=== PATIENT | female | born 1945 | race Caucasian/White ===

== ENCOUNTER 2022-04-25 08:57 | Outpatient (CLI) | payer MEDICARE, BC, SELFPAY ==
--- OUTSIDE RECORDS SUMMARY | 2022-04-25 09:08 | XMS_ITS | Clinical Summary ---
:1945 Author Organization [facility] Address [address] [place] [address] Care Team Providers Name Role Phone Unavailable Primary Care Provider Unavailable Source Comments Patient records contain information from all sites at [facility]. For routine questions regarding patient records, call [phone] during business hours, M-F 8:00 AM - 5:00 PM Central Time. Record requests for emergency care only can be directed to [phone] at any time.[facility] Allergies Active Allergy Reactions Severity Noted Date Comments Animal Dander Other (see comments) 03/01/2017 Horses and guinea pig - sneezing and wa beth eyes Penicillins Rash Low 12/11/2015 Other reaction( s): Rash,abd pain Medications Medication Sig Dispensed Refills Start Date End Date Status apixaban (Eliquis) 5 2 (two) times a day. 0 10/18/19 16 Active mg tablet atorvastatin atorvastatin 40 mg 0 07/16/2020 Active (LIPITOR) 40 mg tablet tablet cetirizine (ZyrTEC) Take 1 tablet by 0 Active 10 mg tablet mouth. fluticasone Administer 2 sprays 0 03/11/2018 Active propionate (FLONASE) into nostril(s). 50 mcg/actuation nasal spray losartan (COZAAR) 50 losartan 50 mg 0 07/12/2020 Active mg tablet tablet amLODIPine (NORVASC) amlodipine 2.5 mg 0 10/20/2015 Active 2.5 mg tablet tablet atenoloL (TENORMIN) atenolol 25 mg 0 10/17/2015 Active 25 mg tablet tablet multivit with Take 1 tablet by 0 Active minerals/lutein mouth. (MULTIVITAMIN 50 PLUS ORAL) Social History Tobacco Use Types Packs/Day Years Used Date Smoking Tobacco: Never Smokeless Tobacco: Never Sex Assigned at Date Recorded Not on file Last Filed Vital Signs Vital Sign Reading Time Taken Comments Blood Pressure 105/51 08/24/2021 10:15 AM CDT Pulse 60 02/16/2021 12:43 PM CDT Temperature - - Respiratory Rate 17 08/24/2021 10:25 AM CDT Oxygen Saturation 95% 08/24/2021 10:29 AM CDT Inhaled Oxygen Concentration - - Weight - - Height - - Body Mass Index - - Plan of Treatment Health Maintenance Due Date Last Done Comments Hepatitis C Screening 1945 Depression Screening (Annual 05/14/2021 PHQ-2) Creatinine Level 02/16/2022 02/16/2021 Potassium Level 02/16/2022 02/16/2021 Sodium Level 02/16/2022 02/16/2021 DTaP,Tdap,and Td Vaccines (3 - Td 05/03/2030 05/03/2020, or Tdap) Pneumococcal vaccine (65+ years) Completed 05/14/2014, 06/2009 Zoster Vaccines Completed 11/03/2018, 12/17/2017, 01/18/2011 Fall Risk Screen (Annual) Completed 08/24/2021 Influenza Vaccine Completed 01/15/2022, 01/21/2021, 01/13/2020, Additional history exists COVID-19 Vaccine Completed 02/07/2022, 09/23/2021, 02/21/2021, Additional history exists Insurance Payer Benefit Plan Subscriber ID Effective Phone Address Typ e / Group Dates MEDICARE MEDICARE A [id number] 2011-Prese [address] [place] [address] [facility] FEDERAL [id number] 2015-Prese [phone] [address] Indemnity [employer] [address] [place] [address]
--- OUTSIDE RECORDS SUMMARY | 2022-04-25 09:08 | XMS_ITS | Encounter Summary ---
:1945 Author Organization [facility] Address [address] [place] [address] Care Team Providers Name Role Phone Unavailable Primary Care Provider Unavailable Reason for Visit Reason Comments Patient Education Encounter Details Date Type Department Care Team Description 02/16/2021 Education Department of Patient Khalida Jolly M.D. [address] [place] [address] Nonrheumatic Aortic Education in [employer] kim Valve Insufficiency [place], [place] [address] [place] [phone] Social History Tobacco Use Types Packs/Day Years Used Date Smoking Tobacco: Never Smokeless Tobacco: Never Sex Assigned at Date Recorded Not on file documented as of this encounter Plan of Treatment Not on filedocumented as of this encounter Visit Diagnoses Diagnosis Nonrheumatic Aortic Valve Insufficiency documented in this encounter Additional Health Concerns Infection Onset Date Last Indicated Resolved Time COVID19 Pending 02/16/2021 02/16/2021 03/08/2021 4:48 AM CDT documented as of this encounter
--- OUTSIDE RECORDS SUMMARY | 2022-04-25 09:08 | XMS_ITS | Encounter Summary ---
:1945 Author Organization [facility] Address [address] [place] [address] Care Team Providers Name Role Phone Unavailable Primary Care Provider Unavailable Reason for Referral Outpatient (Routine) - Closed Specialty Diagnoses / Procedures Referred By Contact Refer red To Contact Diagnoses Regurgitation 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 Melody Jolly M.D. [facility] Procedures Echo Transesophageal (YUSUF) [address] [place] [address] Referral ID Status Reason Start Date Expiration Date Visits Requ ested Visits Authorized [id number] Closed 08/04/2021 08/04/2022 1 1 Encounter Details Date Type Department Care Team Description 08/04/2021 Orders Only Department of Melody Jolly, Encounter Fo r Preprocedural Laboratory Examination (COVID-19) (Primary Dx); Cardiovascular Medicine MPino Regurgitation Aortic Congenital (HCC); in [facility] jaime [address] [facility] Replacement Heart Valve Tissue [address] [place] [id number] [phone] Social History Tobacco Use Types Packs/Day Years Used Date Smoking Tobacco: Never Smokeless Tobacco: Never Sex Assigned at Date Recorded Not on file documented as of this encounter Plan of Treatment Not on filedocumented as of this encounter Results (YUSUF) 2D WITH COLOR, DOPPLER AND CONTRAST (08/24/2021 10:12 AM CDT) P athologist Signature Ejection 60 MC CV EIMS Fraction Proximal 42 MC CV EIMS Ascending Aorta Mid-Ascending 35 MC CV EIMS Aorta Anatomical Region Laterality Modality Echocardiography Specimen (Source) Anatomical Collection Method Collection Time Re ceived Time Location / / Volume Laterality 08/24/2021 8:33 AM CDT Impressions 08/24/2021 3:48 PM CDT PRE-SEDATION ASSESSMENT & CONSENT (performed immediately prior to the start of the procedure): The goals, risks and alternatives to moderate sedation and the transesophageal echo were explained to t he patient, questions were answered and consent was given to proceed. The physician reviewed the patient's history, medication list, allergies, and review of systems, and the findings as documented in the vulnerability assessment analyst and also performed a pertinent examination including a heart, airway and lung assessment. Mallampati Assessment: As do cumented in the RN pre-procedure assessment. Sedation plan: Transesophageal echo - moderate sedation. ASA physical status score: Class II. The patient's identity and all needed equipment were confirmed and a final confirmatory pause was performed by the team immediately prior to start. PROCEDURAL ECHO FINDINGS: Transesophageal echocardiogram performed at the request of the primary director of anesthesia services. Adult probe inserted without difficulty. LEFT VENTRICLE:Borderline enlarged left ventricular chamber size by visual estimate. Estimated left ventricular ejection fraction 60%. RIGHT VENTRICLE:Normal right ventricular chamber size. Normal right ventricular systolic function. ATRIA:Moderately enlarged left atrial si ze by visual estimate. Normal left atrial appendage. Left atrial appendage emptying velocity 84 cm/sec. No left atrial appendage thrombus. Normal right atrial size. CARDIAC VALVES:Rene-aortic valve (trileaf let) Moderate aortic valve regurgitation. No evidence of holodiastolic flow reversals in the aorta. Aortic regurgitant vena contracta 2 mm (clip 15) Mildly thicke mariano mitral valve. Mild mitral valve regu rgitation. Normal pulmonary valve homograft. Trivia l pulmonary valve regurgitation. Normal tricuspid valve. Trivial tricuspid valve regurgitation. OTHER ECHO FINDINGS:Normal aortic arch. Mildly enlarged proximal ascending aorta diameter (diameter 42 mm at proximal level). Normal mid ascending aorta diameter (diameter 35 mm at mid level). Mild immo bile (initimal thickening of 2-3 mm) ath erosclerosis of the descending thoracic aorta. Normal ly connected pulmonary veins. Normal pulmonary artery bifurcation. Normal superior vena cava. Agitated saline injection(s) performed during sedation. No right-to- left shunt at atrial level at rest or wi th Valsalva release. No intracardiac mass or thrombu s identified. No ??pericardial effusion. PROCEDURE NOTES: Procedure performed with appropriate level of sedation. A trained independent observer assisted with mon itoring the patient's level of conscious ness and physiologic status throughout the proced ure, see nursing documentation. The patient tolerated the sedation and procedure well and was released awake, alert, and in good condition. Transesophageal echocardiogram completed without complications. See Sedation Narrator or other pertinent rec ord in [facility] for additional procedure and sedation information. Physician signature for procedural medications and patient discharge when DC criteria met. For the complete report, see the Order-L evel Documents. Narrative 08/24/2021 3:48 PM CDT For the complete report, see the Order-Level Documents. Final Impressions 1. 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 Rene-aortic valve (trileaflet) 3. Moderate aortic valve regurgitation. , regurgitation appears central/commissural in origin, eccentric towards the anterior mitral leaflet. No evidence of holodiastolic flow reversals in the aorta. Vena contracta 2.3 mm. 4. Mildly enlarged proximal ascending ao rta diameter (diameter 42 mm at proximal level). 5. Normal mid ascending aorta diameter ( diameter 35 mm at mid level). 6. Borderline enlarged left ventricular chamber size by visual estimate. 7. Estimated left ventricular ejection f raction 60%. 8. Normal right ventricular chamber size and normal right ventricular function. 9. Moderately enlarged left atrial size by visual estimate. 10. No left atrial appendage thrombus. 11. Mild mitral valve regurgitation. 12. Normal pulmonary valve homograft wit h trivial regurgitation. 13. Trivial tricuspid valve regurgitatio n. 14. Mild immobile (initimal thickening o f 2-3 mm) atherosclerosis of the descending thoracic aorta. 15. No intracardiac mass or thrombus lani ntified. 16. No dwjhf-jw-taqm shunt at atrial lev el at rest or with Valsalva release. 17. No ??pericardial effusion. Procedure Note Carrillo Herr M.D. - 08/24/2021For matting of this note might be different from the original. For the complete report, see the Order-L evel Documents. Final Impressions 1. 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 Rene-aortic valve (trileaflet) 3. Moderate aortic valve regurgitation. , regurgitation appears central/commissural in origin, eccentric towards the anterior mitral leaflet. No evidence of holodiastolic flow reversals in the aorta. Vena contracta 2.3 mm. 4. Mildly enlarged proximal ascending ao rta diameter (diameter 42 mm at proximal level). 5. Normal mid ascending aorta diameter ( diameter 35 mm at mid level). 6. Borderline enlarged left ventricular chamber size by visual estimate. 7. Estimated left ventricular ejection f raction 60%. 8. Normal right ventricular chamber size and normal right ventricular function. 9. Moderately enlarged left atrial size by visual estimate. 10. No left atrial appendage thrombus. 11. Mild mitral valve regurgitation. 12. Normal pulmonary valve homograft wit h trivial regurgitation. 13. Trivial tricuspid valve regurgitatio n. 14. Mild immobile (initimal thickening o f 2-3 mm) atherosclerosis of the descending thoracic aorta. 15. No intracardiac mass or thrombus lani ntified. 16. No zqaig-wm-mrdc shunt at atrial lev el at rest or with Valsalva release. 17. No pericardial effusion. Findings PRE-SEDATION ASSESSMENT & CONSENT (perfo rmed immediately prior to the start of the procedure): The goals, risks and alternatives to moderate sedation and the transesophageal echo were explained to the patient, questions were answered and consent was given to proceed. The physician reviewed the patient's history, medication list, allergies, and review of systems, and the findings as documented in the vulnerability assessment analyst and also performed a pertinent examination includ ing a heart, airway and lung assessment. Mallampati Assessment: As documented in the RN pre-procedure assessment. Sedation plan: Transesophageal echo - moderate sedation. ASA physical status score: Class II. The pat ient's identity and all needed equipment were confirmed and a final confirmatory pause was performed by the team immediately prior to start. PROCEDURAL ECHO FINDINGS: Transesophageal echocardiogram performed at the request of the primary director of anesthesia services. Adult probe inserted without difficulty. LEFT VENTRICLE:Borderline enlarged left ventricular chamber size by visual estimate. Estimated left ventricular ejection fraction 60%. RIGHT VENTRICLE:Normal right ventricular chamber size. Normal right ventricular systolic function. ATRIA:Moderately enlarged left atrial si ze by visual estimate. Normal left atrial appendage. Left atrial appendage emptying velocity 84 cm/sec. No left atrial appendage thrombus. Normal right atrial size. CARDIAC VALVES:Rene-aortic valve (trileaf let) Moderate aortic valve regurgitation. No evidence of holodiastolic flow reversals in the aorta. Aortic regurgitant vena contracta 2 mm (clip 15) Mildly thickened mitral valve. Mild mitral valve regurgitation. Normal pulmonary valve homograft. Trivial pulmonary valve regurgitation. Normal tricuspid valve. Trivial tricuspid valve regurgitation. OTHER ECHO FINDINGS:Normal aortic arch. Mildly enlarged proximal ascending aorta diameter (diameter 42 mm at proximal level). Normal mid ascending aorta diameter (diameter 35 mm at mid level). Mild immobile (initimal thickening of 2-3 mm) atherosclerosis of the descending thoracic aorta. Normally connected pulmonary veins. Normal pulmonary artery bifurcation. Normal superior vena cava. Agitated saline injection(s) performed during sedation. No fpyty-dx-bckf shunt at atri al level at rest or with Valsalva release. No intracardiac mass or thrombus identified. No pericardial effusion. PROCEDURE NOTES: Procedure performed with appropriate level of sedation. A trained independent observer assisted with monitoring the patient's level of consciousness and physiologic status throughout the procedure, see nursing documentation. The patient tolerated the sedation and procedure well and was released awak e, alert, and in good condition. Transesophageal echocardiogram completed without complications. See Sedation Narrator or other pertinent record in [facility] for additional procedure and sedation information. Phys ician signature for procedural medications and patient discharge when DC criteria met. For the complete report, see the Order-L evel Documents. Melody Jolly M.D. CV ECHO PROCEDURES SARS CoV-2 RNA, PCR, Varies Asymptomatic (08/23/2021 12:45 PM CDT) [facility] Method Time Signature SARS CoV-2 Swab, 08/23/2021 DTL RNA, PCR, Nasopharynx 5:24 PM CDT Source SARS CoV-2 Undetected Undetected 08/23/2021 DTL RNA, PCR 5:24 PM CDT Comment: SARS-CoV-2 RNA absent. This result does not rule out COVID-19 in the patient, as the sensitivity of the test depends o n the timing of the specimen collection and quality of the specimen. Result should be correlated with patient's history and clinical presentat ion. ----ADDITIONAL INFORMATION---- This RT-PCR test has received Emergency Use Authorization (EUA) by the U.S. Food and Drug Administration an d is used per warp tension tester's instructions. Performance characteristics were verified by [facility] in a manner consistent with CLIA requirements. Visit the CDC website: https://www.cdc.g ov/coronavirus/ for the most recent guidelines on Coron avirus testing. Fact Sheet for Healthcare Providers: https://www.fda.gov/media/983116/downloa d Fact Sheet for Patients: https://www.fda.gov/media/308646/downloa d Specimen Anatomical Collection Method Collection Time Receive d Time (Source) Location / / Volume Laterality Varies 08/23/2021 12:45 08/23/2021 1:47 (Nasopharynx) PM CDT PM CDT Melody Jolly M.D. LAB MICROBIOLOGY - GENERAL O RDERABLES Performing Organization Address City/State/ZIP Code Phon e Number [facility] - [address] [place], [place] [address] [facility] [place] [address] Laboratories-[facility] [address] documented in this encounter Visit Diagnoses Diagnosis Encounter For Preprocedural Laboratory E xamination (COVID-19) - Primary Regurgitation 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 Regurgitation 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 documented in this encounter
--- OUTSIDE RECORDS SUMMARY | 2022-04-25 09:08 | XMS_ITS | Encounter Summary ---
:1945 Author Organization [facility] Address [address] [place] [address] Care Team Providers Name Role Phone Unavailable Primary Care Provider Unavailable Reason for Referral Outpatient (Routine) - Closed Specialty Diagnoses / Procedures Referred By Contact Refer red To Contact Diagnoses Regurgitation 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 Melody Jolly M.D. [facility] Procedures Echo Transesophageal (YUSUF) [address] [place], [place] [address] Referral ID Status Reason Start Date Expiration Date Visits Requ ested Visits Authorized [id number] Closed 08/04/2021 08/04/2022 1 1 Reason for Visit Outpatient (Routine) - Closed Specialty Diagnoses / Procedures Referred By Contact Refer red To Contact Diagnoses Regurgitation 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 Melody Jolly M.D. [facility] Procedures Echo Transesophageal (YUSUF) [address] [place], [place] [address] Referral ID Status Reason Start Date Expiration Date Visits Requ ested Visits Authorized [id number] Closed 08/04/2021 08/04/2022 1 1 Encounter Details Date Type Department Care Team Description 08/24/2021 Hospital Encounter Department of Myles Jolly atpascale Aortic Congenital (HCC); Cardiovascular Diseases Jessica Oliver Replacement Heart Valve Tissue in [facility] tanner rotary drum continuous process [address] [facility] [address] [place] [phone] Social History Tobacco Use Types Packs/Day Years Used Date Smoking Tobacco: Never Smokeless Tobacco: Never Sex Assigned at Date Recorded Not on file documented as of this encounter Last Filed Vital Signs Vital Sign Reading Time Taken Comments Blood Pressure 105/51 08/24/2021 10:15 AM CDT Pulse - - Temperature - - Respiratory Rate 17 08/24/2021 10:25 AM CDT Oxygen Saturation 95% 08/24/2021 10:29 AM CDT Inhaled Oxygen Concentration - - Weight - - Height - - Body Mass Index - - documented in this encounter Medications at Time of Discharge Medication Sig Dispensed Refills Start Date End Date amLODIPine (NORVASC) 2.5 amlodipine 2.5 mg 0 12/2015 mg tablet tablet apixaban (Eliquis) 5 mg 2 (two) times a day. 0 tablet atenoloL (TENORMIN) 25 atenolol 25 mg tablet 0 mg tablet atorvastatin (LIPITOR) atorvastatin 40 mg 0 07/16 40 mg tablet tablet cetirizine (ZyrTEC) 10 Take 1 tablet by mouth. 0 mg tablet fluticasone propionate Administer 2 sprays 0 02/12 (FLONASE) 50 into nostril(s). mcg/actuation nasal spray losartan (COZAAR) 50 mg losartan 50 mg tablet 0 0 07/12/2020 tablet multivit with Take 1 tablet by mouth. 0 minerals/lutein (MULTIVITAMIN 50 PLUS ORAL) documented as of this encounter Plan of Treatment Not on filedocumented as of this encounter Procedures Procedure Name Priority Date/Time Associated Diagnosis Comme nts (YUSUF) 2D WITH Routine 08/24/2021 10:12 Regurgitation Aortic Re sults for this COLOR, DOPPLER AND AM CDT Congenital (H CC) procedure are in CONTRAST Replacement Heart the result s Valve Tissue section. documented in this encounter Results (YUSUF) 2D WITH COLOR, [...] and the findings as documented in the home assessment nurse and also performed a pertinent examination including [...] performed at the request of the primary civil service clerk. Adult probe inserted without difficulty. LEFT VENTRICLE:Borderline [...] Narrator or other pertinent rec ord in [facility] for additional procedure and sedation information. Physician [...] mass or thrombus lani ntified. 16. No frvav-dk-geag shunt at atrial lev el at rest [...] mass or thrombus lani ntified. 16. No vldaz-ro-ulsv shunt at atrial lev el at rest [...] and the findings as documented in the home assessment nurse and also performed a pertinent examination includ [...] performed at the request of the primary civil service clerk. Adult probe inserted without difficulty. LEFT VENTRICLE:Borderline [...] Agitated saline injection(s) performed during sedation. No obenb-fy-qtqc shunt at atri al level at rest [...] Sedation Narrator or other pertinent record in [facility] for additional procedure and sedation information. Phys ician signature for procedural medications and patient discharge when DC criteria met. For the complete report, see the Order-L evel Documents. Melody Jolly M.D. CV ECHO PROCEDURES documented in this encounter Visit Diagnoses Diagnosis Regurgitation 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 documented in this encounter Administered Medications Inactive Administered Medications - up to 3 most recent administrations Medication Order MAR Action Action Date Dose Rate Site fentaNYL injection (SUBLIMAZE) Given 08/24/2021 9:39 AM CDT 50 mcg Code/trauma/sedation medication, Starting on Sun08/24/21 at 0939 lidocaine 5 % ointment 1 application Given 08/24/2021 9:29 A M CDT 1 application (XYLOCAINE) 1 application, mouth/throat, Once, On Sun08/24/21 at 0845, For 1 dose, Apply 1 inch on tongue blade. Place ointment side down in back of mouth, as far back as possible. Instruct patient to swallow any dissolved ointment. After 2-3 minutes, check gag reflex. May repeat once if gag reflex remains. Administer first dose within 10 minutes of expected physician arrival to procedure. MAX of 20 g of ointment/day midazolam (PF) injection (VERSED) Given 08/24/2021 9:39 AM CDT 2 mg Code/trauma/sedation medication, Starting on Sun08/24/21 at 0939 midazolam (PF) injection (VERSED) Given 08/24/2021 9:52 AM CDT 1 mg Code/trauma/sedation medication, Starting on Sun08/24/21 at 0952 NaCl 0.9% infusion New Bag 08/24/2021 9:39 AM CDT 100 mL 200 mL/hr intravenous, Code/trauma/sedation continuous med, Starting on Sun08/24/21 at 0939 sodium chloride 0.9 % injection 10 mL Given 08/24/2021 9:18 AM CDT 10 mL 10 mL, intravenous, Once, On Sun08/24/21 at 0845, For 1 dose, Prior to and following infusion and between multiple consecutive infusions: sodium chloride 0.9 % injection sodium chloride 0.9 % injection 20 mL Given 08/24/2021 10:09 AM CDT 20 mL 20 mL, intravenous, Once, On Sun08/24/21 at 0845, For 1 dose, See protocol documented in this encounter
--- OUTSIDE RECORDS SUMMARY | 2022-04-25 09:09 | XMS_ITS | Encounter Summary ---
:1945 Author Organization [facility] Address [address] [place] [address] Care Team Providers Name Role Phone Unavailable Primary Care Provider Unavailable Reason for Visit Outpatient (Routine) - Closed Specialty Diagnoses / Procedures Referred By Contact Refer red To Contact Cardiovascular Disease Diagnoses Replacement Heart Valve Tissue Atrial Fibrillation Unspecified Bundle Branch Block Left Hypertension Essential Primary Nonrheumatic Aortic Valve Insufficiency Markos Villafana M.D. [facility] [address] [place] [address] [place] [address] Referral ID Status Reason Start Date Expiration Date Visits Requ ested Visits Authorized [id number] Closed 12/24/2020 12/24/2021 1 1 Encounter Details Date Type Department Care Team Description 02/16/2021 Comprehensive Visit Department of Igor Jolly Aortic Valve Insufficiency (Primary Dx); Cardiovascular Desiree Oliver Regurgitation Aortic Congenital (HCC); Medicine in [place], [address] [facility] Heart Valve Tissue; [facility] Atrial Fibrillation (HCC); [address] [facility], Bundle Branch Block Left; [facility] Hypertension E ssential Primary; [id number] Abnormal Findings On Diagnostic Imaging Of Heart And Coronary Circulation [phone] Social History Tobacco Use Types Packs/Day Years Used Date Smoking Tobacco: Never Smokeless Tobacco: Never Sex Assigned at Date Recorded Not on file documented as of this encounter Last Filed Vital Signs Vital Sign Reading Time Taken Comments Blood Pressure 129/51 02/16/2021 12:43 PM CDT Pulse 60 02/16/2021 12:43 PM CDT Temperature - - Respiratory Rate - - Oxygen Saturation - - Inhaled Oxygen Concentration - - Weight - - Height - - Body Mass Index - - documented in this encounter Consult Notes Melody Jolly M.D. - 02/16/2021 1:00 PM CDT REFERRAL SOURCE Markos Villafana M.D. [address] [place] [address] CHIEF COMPLAINT / REASON FOR VISIT Cardiology follow up. Hx of ROSS procedure HISTORY OF PRESENT ILLNESS Ms. John is a ronald 75 year old female who comes to the valvular heart disease clinic for establishment with a new service now developer as she has recently [place]. As it was time for her yearly echo in follow-up she set up this visit here in the valve Clinic. The reason for the cardiology follow-up is because of her history of a Ross procedure in 1999 for what she describes as severe aortic stenosis. Ms. John describes having had rheumatic fever as a child. Sometime after that I believe a murmur was identified which was then followed closely. Ultimately in the year 1999 due to progression of her valve disease and some enlargement of her heart it was decided to proceed with surgical intervention.It seems like she had some mild symptoms of shortness of breath and chest pressure with walking at that time as well as symptoms of heart palpitations. At the institution she was at in [place] there was a surgeon with experience in the Ross procedure. She was fairly young but did not want a mechanical valve due to the concerns about ???the clicking noise?? . Thus it was elected to proceed with the Ross procedure. Thus she underwent a pulmonary valve homograft and placement of her pulmonic mcgrath valve in the aortic position. At the time of surgery it was identified that her aortic valve was bicuspid in nature. She states she was never told about screening first-degree relatives. She has no biologic children but does have a brother and is not aware that he has ever been officially screened. She indicates that immediately postoperatively she did have atrial fibrillation. She felt it at thattime. Otherwise after surgery she states those symptoms of shortness of breath and chest pressure aswell as the palpitations resolved. Then in 2013 she had a symptomatic episode of atrial fibrillation. It lasted 1 hour. She took an extra atenolol it sounds like at that time. Because of that episode she was started on apixaban which she has been on ever since. She has had no cardiovascular issues since 2013 with that atrial fibrillation. She feels well. She exercises. Prior to she was exercising at a gym. Then during when the gym was closed she was walking. Now that she has moved to [facility] she has joined a [employer] and goes 3 times a week and does the treadmill for 20 minutes followed by some light weights for 40 minutes. Shedenies any symptoms of chest discomfort chest pressure chest tightness. She feels she gets winded with exercise but it is normal. She does not feel like she gets excessively short of breath with activity. Clearly no shortness of breath with daily activities. She denies any decreased exercise tolerance. She may get some slight swelling in her ankles at the end of the day or if she flies but this is not new or changed. She denies orthopnea or PND. No palpitations, lightheadedness, or syncope. She states that she has lost about 9 lb since the spring of this year with a concentrated effort. She states she initially lost 20 lb after her heart surgery in 1999 but then has put that back on slowly. She goes to the dentist regularly and knows to have antibiotic prophylaxis prior to dental procedures. The following portions of the patient's history were reviewed and updated as appropriate: allergies,current medications, family history, medical history, social history, surgical history and problem list. In addition, the electronic medical record was reviewed, including any available outside records. PAST MEDICAL/SURGICAL HISTORY 1. HTN on medications. The current medical regimen seems to have been fairly stable since 2013 2. Hyperlipidemia on statin medication 3. Mildly elevated blood sugar but not stephon diabetes mellitus 4. History of a bicuspid aortic valve with aortic stenosis leading to a Ross procedure in 1999 5. Rheumatic fever as a child REVIEW OF SYSTEMS As per HPI. She denies any fevers chills. No GI or issues. She is scheduled for colonoscopy in the near future. She states she sleeps okay although something might wake her up and then her mind races. She feels like she falls asleep fairly quickly. She states her has noted she snore slightly but she does not seem to have excessive daytime somnolence. SOCIAL HISTORY She lives with her . She smoked very slightly in college. She does drink 2 glasses of wine with dinner most nights. 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 Her mother at age 65 of breast cancer. Father at age 82 and appears to have had coronary disease and of amyocardial infarction. Patient has no biologic children MEDICATIONS Current Medications: ??? amLODIPine (NORVASC) 2.5 mg tablet, amlodipine 2.5 mg tablet ??? apixaban (Eliquis) 5 mg tablet, 2 (two) times a day. ??? atenoloL (TENORMIN) 25 mg tablet, atenolol 25 mg tablet ??? atorvastatin (LIPITOR) 40 mg tablet, atorvastatin 40 mg tablet ??? cetirizine (ZyrTEC) 10 mg tablet, Take 1 tablet by mouth. ??? fluticasone propionate (FLONASE) 50 mcg/actuation nasal spray, Administer 2 sprays into nostril(s). ??? losartan (COZAAR) 50 mg tablet, losartan 50 mg tablet ??? multivit with minerals/lutein (MULTIVITAMIN 50 PLUS ORAL), Take 1 tablet by mouth. VITALS BP (!) 129/51 (BP Location: Left arm, Patient Position: Sitting) Pulse 60 PHYSICAL EXAMINATION General: Looks comfortable, breathing comfortably no acute distress. She has some mild redness of both eyes which she states is due to allergies. Cardiovascular Exam: No JVP elevation. Carotid upstrokes appear to be normal perhaps very mildly dynamic. Heart sounds are regular. PMI is difficult to palpate but is in normal location from what I canfeel. There is a 2/6 systolic ejection murmur at the base with a 2 to 3/6 diastolic murmur heard along the left mid sternum. Radial pulses are somewhat dynamic as well. Distal lower extremity pulses are present and equal bilaterally Lungs: Clear to auscultation bilaterally no wheezes, rales, rhonchi Abdomen: Positive bowel sounds. Soft. No hepatosplenomegaly. No abdominal tenderness, no masses. Extremities: No cyanosis, clubbing, or pitting edema Neuro: Grossly intact. Moves upper and lower extremities equally bilaterally. No facial droop, no dysarthria. Psychiatric: Alert and Oriented to person, place, and time. Not excessively anxious or depressed. DIAGNOSTIC REVIEW EKG: ECG 12 Lead Result Date: 02/16/2021 Normal sinus rhythm Left bundle branch block T wave abnormality, consider lateral ischemia No previous ECGs available Reviewed by MIGDALIA Johnson Echo Transthoracic (TTE) - Complex Valvular Heart Disease Result Date: 02/16/2021 For the complete report, see the Order-Level Documents. Final Impressions 1. Status post Ross procedure. Status post pulmonary valve homograft 2. Moderate- severe aortic valve regurgitation, ERO (PISA)0.22 cm^2, regurgitant volume (PISA) 56 ml. 3. Early diastolic flow reversals in the abdominal aorta. Holodiastolic flow reversals in the descending thoracic aorta 4. Aortic valve systolic mean Dopplergradient 6 mmHg. 5. Pulmonary valve prosthesis systolic mean Doppler gradient 5 mmHg with mild valvular regurgitation 6. Mildly enlarged left ventricular chamber size, calculated 2-D linear ejection fraction 59 %. 7. Abnormal left ventricular geometry with eccentric left ventricular hypertrophy, indeterminate filling pressure. 8. Normal right ventricular chamber size, normal systolic function, estimated right ventricular systolic pressure 27 mmHg (right atrial pressure of 5 mmHg). 9. No pericardial effusion. Comments Technically challenging images. Consider YUSUF for further definition of the AR if clinically indicated. Labs: Hope never normal hemoglobin, hematocrit, white count platelet count. INR is 1.3. Creatinine 1.05. Glucose mildly elevated 104. NT proBNP is 257. Total cholesterol is 162, HDL 59, LDL 71, triglycerides 162. ASSESSMENT/PLAN: 1. Status post Ross procedure for symptomatic aortic stenosis is in the setting of a bicuspid valve per the patient 2. Aortic valve regurgitation, moderate to moderately severe 3. Dilated ascending aorta. Appears to be stable the last year at least (per the records likely longer). 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 . Normally functioning pulmonary homograft. Mean gradient 5 mm of Hg and mild regurgitation 5. . History of HTN on 3 medications. 6. . History of hyperlipidemia on statin 7. Paroxysmal atrial fibrillation by history. Currently on apixaban. No clinical recurrences 8. . Dilated left ventricle on both echocardiography and chest x-ray. Unclear if this is longstanding 9. . Mildly elevated blood sugar 10. Left bundle branch block. This is not new and is described on prior electrocardiograms. It appears that this has been present since her open heart surgery I reviewed the echocardiogram and I do agree that it is difficult to know how much aortic regurgitation is present. My suspicion is it is moderate. I reviewed the outside echo from May where the regurgitation appears to be [id number]. However there was some technical limitations with both marika dies. On exam the aortic regurgitation appears to be at least moderate. She luckily has no cardiovascular symptomatology. Her LV does appear to be dilated but it is unclear whether this is related to the aortic regurgitation or has been more longstanding. The echo from May does not describe LV dilatation but on my review the images it does look like it might be somewhat dilated. I think the best next step is to proceed with a transesophageal echo to look at the valve a bit closer and assess the regurgitation. This will also allow us to look at her ascending aorta as well (and her homograft which appears to be function normally). We did talk about possibly doing a cardiac MR which may also allow us to look at the LV a bit closer and perhaps the aortic regurgitation. However we will hold off at the current time and only use that test if we can not get a good assessment by YUSUF. I am not sure about the reasons for her current antihypertensive regimen. She has been on this alongtimes will keep everything as is. Ideally a beta-sandro would not be what I would use in the setting of her aortic regurgitation. However again she has tolerated this at the current time. Her overall heart rate is not too slow either. Thus we will keep her current antihypertensive regimen as is. We will also continue her statin medication as is. I will communicate with her after the transesophageal echo and let her know what it shows. Then we will decide on the appropriate follow-up. DIAGNOSIS: #1 Replacement Heart Valve Tissue #2 Atrial Fibrillation (HCC) #3 Bundle Branch Block Left #4 Hypertension Essential Primary #5 Nonrheumatic Aortic Valve Insufficiency #6 Regurgitation Aortic Congenital (HCC) #7 Abnormal Findings On Diagnostic Imaging Of Heart And Coronary Circulation Melody Jolly M.D. 02/16/2021 documented in this encounter Plan of Treatment Not on filedocumented as of this encounter Visit Diagnoses Diagnosis Nonrheumatic Aortic Valve Insufficiency - Primary Regurgitation 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 Atrial Fibrillation Unspecified Bundle Branch Block Left Hypertension Essential Primary Abnormal Findings On Diagnostic Imaging Of Heart And Coronary Circulation documented in this encounter Additional Health Concerns Infection Onset Date Last Indicated Resolved Time COVID19 Pending 02/16/2021 02/16/2021 03/08/2021 4:48 AM CDT documented as of this encounter
--- OUTSIDE RECORDS SUMMARY | 2022-04-25 09:09 | XMS_ITS | Clinical Summary ---
:1945 Author Organization [id number] [place] [address] Care Team Providers Name Role Phone Pcp, No Primary Care Provider Unavailable Allergies Active Allergy Reactions Severity Noted Date Comments Penicillins Rash Low 12/11/2015 Other reaction( s): Rash,abd pain Other reaction( s): Rash,abd pain Medications Medication Sig Dispensed Refills Start Date End Date Status amLODIPine (NORVASC) 0 08/19/2020 Active 2.5 mg tablet Eliquis 5 mg tablet 0 08/17/2020 Active atenoloL (TENORMIN) 25 0 08/06/2020 Active mg tablet atorvastatin (LIPITOR) 0 10/17/2020 Active 40 mg tablet clindamycin (CLEOCIN) 0 08/19/2020 Active 300 mg capsule losartan (COZAAR) 50 mg 0 10/17/2020 Active tablet multivit with Take 1 Tablet by 0 Active calcium,iron,min mouth. (MULTIPLE VITAMIN, WOMENS ORAL) Cetirizine HCl (ZYRTEC) Chew 10 mg by 0 Active 10 mg chewable tablet mouth. Active Problems No known active problems Encounters Date Type Specialty Care Team Description 04/04/2022 Lab Requisition Enrike Cerda MD from Last 3 Months Social History Tobacco Use Types Packs/Day Years Used Date Smoking Tobacco: Never Smokeless Tobacco: Never Alcohol Use Standard Drinks/Week Comments Yes 0 (1 standard drink = 0.6 oz pure alcoho l) Sex Assigned at Date Recorded Not on file Obstetrics History Last Filed Vital Signs Vital Sign Reading Time Taken Comments Blood Pressure 147/71 10/28/2021 11:45 AM CDT Pulse 66 10/28/2021 11:45 AM CDT Temperature - - Respiratory Rate - - Oxygen Saturation 98% 10/28/2021 11:45 AM CDT Inhaled Oxygen Concentration - - Weight 69.4 kg (153 lb) 10/28/2021 11:45 AM CDT Height - - Body Mass Index - - Plan of Treatment Health Maintenance Due Date Last Done Comments Tdap 09/19/1956 Depression screening for age 12+ 1956 BMI (ht and wt on same day) for age 18+ 1962 Hepatitis C screening for age 18-79 1962 Tetanus booster 1964 Zoster (shingles) series for age 50+ (1 of 1994 2) DEXA/DXA scan for age 65+ 2009 Medicare Wellness for age 65+ 2009 Pneumococcal series for age 65+ (1 - PCV) 2009 COVID-19 vaccine series (3 - Booster for 11/18/2021 022, 02/21/2021 Pfizer series) Influenza for age 65+ 01/12/2022 Procedures Procedure Name Priority Date/Time Associated Diagnosis Comme nts LAB TRACKING EVENT Routine 04/04/2022 11:30 AM MOLDING FITTER PATH TISSUE EXAM Routine 04/04/2022 11:30 AM Resu lts for this MOLDING FITTER procedure are i n the results section. from Last 3 Months Results LAB TRACKING EVENT (04/04/2022 11:30 AM MOLDING FITTER) Specimen Anatomical Collection Method Collection Time Receive d Time (Source) Location / / Volume Laterality Other (Other) Client Collect / 04/04/2022 11:30 2021 6:37 Unknown AM MOLDING FITTER PM MOLDING FITTER Enrike Cerda MD LAB BILL ONLY Performing Organization Address City/State/ZIP Code Phon e Number [facility] [address] [place] [address] LABORATORY-CENTRAL 2000 LABORATORY PATH TISSUE EXAM (04/04/2022 11:30 AM MOLDING FITTER) Component Value Ref Test Analysis Performed At [facility] gist Range Method Time Signature Case Report Pathology Report ?Case: [id number] ? 04/07/2022 [facility] Authorizing Provider: ??Enrike Vidal MD ?? Collected: ? 04/04/2022 1130 ? 2:19 PM MOLDING FITTER LABORAT ORY-CE Ordering Location: ? [facility] ?Received: ?04/04/2022 1937 ? [facility] Pathologist: ? Foster Silverman Jr., ? LABORATORY ? MD ? Specimen: ?Scalp ? Final SOFT TISSUE, 04/07/2022 [facility] El ectronically Diagnosis SCALP, 2:19 PM MOLDING FITTER LABORATORY-CE sign ed by EXCISION: NTRAL Jas Silverman Benign pilar LABORATORY Mack gonsalez Jr., MD cyst on 022 at 2:19 PM Clinical Scalp cyst 04/07/2022 [facility] Information 2:19 PM MOLDING FITTER LABORATORY-CE [facility] LABORATORY Gross A) Received in formalin, lab eled with the patient's name and scalp, is a 0.6 x 0.6 x 0.4 cm disrupted cyst. The cyst contents are gómez and friable. The specimen is inked orange. The specimen is bisected and entirely submitted in one cassette. 04/07/2022 [facility] Description 2:19 PM MOLDING FITTER LABORATORY-CE STN 04/05/2022 [facility] LABORATORY Microscopic The final 04/07/2022 [facility] Description diagnosis is 2:19 PM MOLDING FITTER LABORATORY-CE based on NTRAL microscopic LABORATORY examination of appropriate sections of all specimens. Additional 04/07/2022 [facility] Information Interpreted at [facility], Central Laboratory - [address], [place] [address] 2:19 PM MOLDING FITTER LABORATORY-CE [facility] LABORATORY Specimen Anatomical Collection Method Collection Time Receive d Time (Source) Location / / Volume Laterality Other (Scalp) 04/04/2022 11:30 04/04/2022 7:37 AM MOLDING FITTER PM MOLDING FITTER Enrike Cerda MD PATHOLOGY/CYTOLOGY Performing Organization Address City/State/ZIP Code Phon e Number [facility] [address] [place] [address] LABORATORY-CENTRAL 2000 LABORATORY from Last 3 Months Insurance Payer Benefit Plan / Subscriber ID Effective Dates Phone Addre ss Type Group MEDICARE - PB MEDICARE [place] [id number] 2011-Present ATT N: CLAIMS USE ONLY ONLY [address] [place] [address] BLUE [place] [id number] 2015-Present [address] [address] [place] [address] Care Teams Sales And Marketing Analyst Relationship Specialty Start Date End Date Pcp, No PCP - General 10/12/20 .
--- OUTSIDE RECORDS SUMMARY | 2022-04-25 09:09 | XMS_ITS | Encounter Summary ---
:1945 Author Organization [facility] Address [address] [place] [address] Care Team Providers Name Role Phone Unavailable Primary Care Provider Unavailable Encounter Details Date Type Department Care Team Description 12/30/2020 Clinical Communication Department of Jodi Foley Cardiovascular Medicine William ElamS.N., in [facility] R.N. [address] [facility] [email or web address] [address] [place] [address] [place], [place] [phone] Social History Tobacco Use Types Packs/Day Years Used Date Smoking Tobacco: Never Assessed Sex Assigned at Date Recorded Not on file documented as of this encounter Miscellaneous Notes Telephone Encounter - Janie Saini - 12/30/2020 3:35 PM CDT LVM for patient. If she calls back, please schedule. Telephone Encounter - Jodi Foley M.SShane, R.N. - 12/30/2020 12:06 PM CDT REFERRAL SOURCE: Jodi Villafana M.D. CHIEF COMPLAINT / REASON FOR VISIT Wants to establish relationship with local Business Assistant, History of having undergone Ross Procedure in 1999. HISTORY OF PRESENT ILLNESS Ross Procedure 1999. Past Medical History and Past Surgical History have been updated in EMR MEDICATIONS ??? amLODIPine (NORVASC) 2.5 MG tablet, TAKE 1 TABLET BY MOUTH EVERY DAY, Disp: , Rfl: 3 ??? atenolol (TENORMIN) 25 MG tablet, TAKE 1 TABLET BY MOUTH EVERY DAY, Disp: , Rfl: 3 ??? atorvastatin (LIPITOR) 10 MG tablet, Take 10 mg by mouth daily., Disp: , Rfl: ??? cetirizine (ZyrTEC) 10 MG chewable tablet, Chew 10 mg by mouth daily, Disp: , Rfl: ??? ELIQUIS 5 MG, TAKE 1 TABLET BY MOUTH TWICE A DAY, Disp: , Rfl: 3 ??? losartan (COZAAR) 25 MG tablet, Take 25 mg by mouth daily., Disp: , Rfl: IMAGING DIAGNOSTIC REVIEW Transthoracic Echo Report MARGIE VALVERDE Age: ?74 ? Gender: ? F Exam Date: ? 05/27/2020 10:55 Exam Location: [facility] Ht (in): ? 62 ? Wt (lb): ? 156 Ordering Physician: ?JODI VILLAFANA MD Referring Physician: ? JODI VILLAFANA MD Technologist: ?SARKIS HELTON E Procedure CPT: Indications: ? Atrial Fibrillation BP: ?? 125 ? / ?? 70 ?HR: ?? 55 Rhythm: ? Sinus Technical Quality: ?Fair MEASUREMENTS ??(Male / Female) Normal Values 2D ECHO LV Diastolic Diameter PLAX ?4.4 cm ?4.2 - 5.9 / 3.8 - 5.2 cm LV Systolic Diameter PLAX ? 3.2 cm ?2.4 - 4.0 / 2.2 - 3.5 cm IVS Diastolic Thickness ? 1.3 cm ?0.6 - 1.0 / 0.6 - 0.9 cm LVPW Diastolic Thickness ?1.2 cm ?0.6 - 1.0 / 0.6 - 0.9 cm LVOT Diameter ? 2.1 cm ?2 cm Aortic Root Diameter ?3.1 cm ?4.0 / 3.6 cm LA Systolic Diameter LX ? 3.6 cm ?3.0 - 4.0 / 2.7 - 3.8 cm LV Ejection Fraction 2D Teich ? 55.4 % LV Diastolic Volume MOD BP ?93.7 cm3 ?62 - 150 / 46 - 106 cm3 LV Diastolic Volume Index MOD BP ??52.6 ml/m2 ?34 - 74 / 29 - 61 ml/2 LV Systolic Volume MOD BP ? 31.2 cm3 ?21 - 61 / 14 - 42 cm3 LV Systolic Volume Index MOD BP ?? 17.5 ml/m2 ?11 - 31 / 8 - 24 ml/m2 LV Ejection Fraction MOD BP ? 66.7 % ?52 - 72 / 54 - 74 % LA Volume Index ? 43.0 ml/m2 ?<34 ml/m2 RA Volume Index ? 30.3 ml/m2 ?<34 ml/m2 Ascending Aorta Diameter ?4.3 cm ?<3.8 / <3.5 cm DOPPLER AV Peak Velocity ?155.0 cm/s AV Peak Gradient ?9.6 mmHg AV Mean Gradient ?5.0 mmHg AV Velocity Time Integral ? 36.9 cm AI Peak Velocity ?417.0 cm/s AI Peak Gradient ?69.6 mmHg AI Pressure Half Time ? 507.0 ms LVOT Peak Velocity ?112.0 cm/s LVOT Peak Gradient ?5.0 mmHg LVOT Velocity Time Integral ? 26.2 cm AV Area Cont Eq vti ? 2.5 cm2 MV Peak Velocity ?84.0 cm/s MV Peak Gradient ?2.8 mmHg MV Mean Gradient ?1.0 mmHg MV Velocity Time Integral ? 30.4 cm MV Area PHT ? 1.7 cm2 Mitral E Point Velocity ? 91.9 cm/s Mitral A Point Velocity ? 60.2 cm/s Mitral E to A Ratio ? 1.5 LV E' Lateral Velocity ?7.8 cm/s Mitral E to LV E' Lateral Ratio ?? 11.7 LV E' Septal Velocity ? 4.8 cm/s Mitral E to LV E' Septal Ratio ?19.2 TR Peak Velocity ?215.0 cm/s TR Peak Gradient ?18.5 mmHg PV Peak Velocity ?121.0 cm/s PV Peak Gradient ?5.9 mmHg FINDINGS Left Ventricle The left ventricle is normal in size. There is concentric left ventricular hypertrophy. ??LVEF is estimated at 60-65% on 2D imaging. ??Paradoxical septal motion noted likely from prior sternotomy. ??No other regional wall motion abnormalities are noted. Right Ventricle The right ventricle is normal in size. Right ventricular systolic function is normal. Right Atrium The right atrium is normal in size. Left Atrium The left atrium is enlarged. Mitral Valve Structurally normal mitral valve. There is no mitral stenosis. There is trivial mitral regurgitation. Aortic Valve Prior Ross procedure with grossly normal valve leaflets noted. There is no aortic stenosis. There is mild to moderate aortic regurgitation. Tricuspid Valve Structurally normal tricuspid valve. There is no tricuspid stenosis. There is trivial tricuspid regurgitation. Pulmonary pressure is estimated to be normal. Pulmonic Valve Structurally normal pulmonic valve. There is no pulmonic stenosis. There is trivial pulmonic regurgitation. Pericardium There is no pericardial effusion. Aorta The aortic root is normal in szie. ??The ??ascending thoracic aorta is enlarged at 4.3 cm. Other The inferior vena cava is normal in size and there is normal respirophasic variation. There is no evidence for a patent foramen ovale or atrial septal defect by 2D or color Doppler echo. CONCLUSIONS The left ventricle is normal in size. There is concentric left ventricular hypertrophy. ??LVEF is estimated at 60-65% on 2D imaging. ??Paradoxical septal motion noted likely from prior sternotomy. ??No other regional wall motion abnormalities are noted. Left atrial enlargement. Mild to moderate aortic insufficiency Trace mitral and tricuspid valve regurgitation with estimated normal pulmonary artery pressure. The ??ascending thoracic aorta is enlarged at 4.3 cm. Compared to prior study 03/17/19 ascending aorta now measures 4.3 cm. Holland Castrejon MD (Electronically Signed) Final Date: ?27 May 2020 13:13 Procedure Note Interface, Radiology Results In - 05/27/2020 ??1:14 PM EST Transthoracic Echo Report MARGIE VALVERDE Age: ?74 ? Gender: ? F Exam Date: ? 05/27/2020 10:55 Exam Location: [facility] Ht (in): ? 62 ? Wt (lb): ? 156 Ordering Physician: ?JODI VILLAFANA MD Referring Physician: ? JODI VILLAFANA MD Technologist: ?SARKIS HELTON E Procedure CPT: Indications: ? Atrial Fibrillation BP: ?? 125 ? / ?? 70 ?HR: ?? 55 Rhythm: ? Sinus Technical Quality: ?Fair MEASUREMENTS ??(Male / Female) Normal Values 2D ECHO LV Diastolic Diameter PLAX ?4.4 cm ?4.2 - 5.9 / 3.8 - 5.2 cm LV Systolic Diameter??PLAX ? 3.2 cm ?2.4 - 4.0 / 2.2 - 3.5 cm IVS Diastolic Thickness ? 1.3 cm ?0.6 - 1.0 / 0.6 - 0.9 cm LVPW Diastolic Thickness ?1.2 cm ?0.6 - 1.0 / 0.6 - 0.9 cm LVOT Diameter ?2.1 cm ?2 cm Aortic Root Diameter ?3.1 cm ?4.0 / 3.6 cm LA Systolic Diameter LX ? 3.6 cm ?3.0 - 4.0 / 2.7 - 3.8 cm LV Ejection Fraction 2D Teich ? 55.4 % LV Diastolic Volume MOD BP?93.7 cm3 ?62 - 150 / 46 - 106 cm3 LV Diastolic Volume Index MOD BP ??52.6 ml/m2 ?34 - 74 / 29 - 61 ml/2 LV Systolic Volume MOD BP ? 31.2 cm3 ?21 - 61 / 14 - 42 cm3 LV Systolic Volume Index MOD BP ?? 17.5 ml/m2 ?11 - 31 / 8 - 24 ml/m2 LV Ejection Fraction MOD BP ? 66.7 % ?52 - 72 / 54 - 74 % LA Volume Index ? 43.0 ml/m2 ?<34 ml/m2 RA Volume Index ? 30.3 ml/m2 ?<34 ml/m2 Ascending Aorta Diameter ?4.3 cm ?<3.8 / <3.5 cm DOPPLER AV Peak Velocity ?155.0 cm/s AV Peak Gradient ?9.6 mmHg AV Mean Gradient ?5.0 mmHg AV Velocity Time Integral ? 36.9 cm AI Peak Velocity ?417.0 cm/s AI Peak Gradient ?69.6 mmHg AI Pressure Half Time ? 507.0 ms LVOT Peak Velocity ?112.0 cm/s LVOT Peak Gradient ?5.0 mmHg LVOT Velocity Time Integral ?26.2 cm AV Area Cont Eq vti ? 2.5 cm2 MV Peak Velocity ?84.0 cm/s MV Peak Gradient ?2.8 mmHg MV Mean Gradient ?1.0 mmHg MV Velocity Time Integral ? 30.4 cm MV Area PHT ?1.7 cm2 Mitral E Point Velocity ? 91.9 cm/s Mitral A Point Velocity ? 60.2 cm/s Mitral E to A Ratio ? 1.5 LV E' Lateral Velocity ?7.8 cm/s Mitral E to LV E' Lateral Ratio ?? 11.7 LV E' Septal Velocity ? 4.8 cm/s Mitral E to LV E' Septal Ratio ?19.2 TR Peak Velocity ?215.0 cm/s TR Peak Gradient ?18.5 mmHg PV Peak Velocity ?121.0 cm/s PV Peak Gradient ?5.9 mmHg FINDINGS Left Ventricle The left ventricle is normal in size. There is concentric left ventricular hypertrophy. ??LVEF is estimated at 60-65% on 2D imaging. ??Paradoxical septal motion noted likely from prior sternotomy. ??No other regional wall motion abnormalities are noted. Right Ventricle The right ventricle is normal in size. Right ventricular systolic function is normal. Right Atrium The right atrium is normal in size. Left Atrium The left atrium is enlarged. Mitral Valve Structurally normal mitral valve. There is no mitral stenosis. There is trivial mitral regurgitation. Aortic Valve Prior Ross procedure with grossly normal valve leaflets noted. There is no aortic stenosis. There is mild to moderate aortic regurgitation. Tricuspid Valve Structurally normal tricuspid valve. There is no tricuspid stenosis. There is trivial tricuspid regurgitation. Pulmonary pressure is estimated to be normal. Pulmonic Valve Structurally normal pulmonic valve. There is no pulmonic stenosis. There is trivial pulmonic regurgitation. Pericardium There is no pericardial effusion. Aorta The aortic root is normal in szie. ??The ??ascending thoracic aorta is enlarged at 4.3 cm. Other The inferior vena cava is normal in size and there is normal respirophasic variation. There is no evidence for a patent foramen ovale or atrial septal defect by 2D or color Doppler echo. CONCLUSIONS The left ventricle is normal in size. There is concentric left ventricular hypertrophy. ??LVEF is estimated at 60-65% on 2D imaging. ??Paradoxical septal motion noted likely from prior sternotomy. ??No other regional wall motion abnormalities are noted. Left atrial enlargement. Mild to moderate aortic insufficiency Trace mitral and tricuspid valve regurgitation with estimated normal pulmonary artery pressure. The ??ascending thoracic aorta is enlarged at 4.3 cm. Compared to prior study 03/17/19 ascending aorta now measures 4.3 cm. Holland Castrejon MD (Electronically Signed) Final Date: ?27 May 2020 13:13 Specimen Collected: 05/27/20 09:55 Last Resulted: 05/27/20 12:14 Received From: [facility] Result Received: 12/30/20 11:33 Encounter Summary RECOMMENDATIONS TO APPOINTMENT OFFICE Regular Valve testing / Consult documented in this encounter Plan of Treatment Not on filedocumented as of this encounter Visit Diagnoses Not on filedocumented in this encounter
--- OUTSIDE RECORDS SUMMARY | 2022-04-25 09:09 | XMS_ITS | Encounter Summary ---
:1945 Author Organization [facility] Address [address] [place] [address] Care Team Providers Name Role Phone Unavailable Primary Care Provider Unavailable Reason for Referral Outpatient (Routine) - Closed Specialty Diagnoses / Procedures Referred By Contact Refer red To Contact Diagnoses Nonrheumatic Aortic Valve Insufficiency Melody Jolly M.D. [facility] Procedures Echo Transthoracic (TTE) - Complex Valvular Heart Disease [address] [place] [address] Referral ID Status Reason Start Date Expiration Date Visits Requ ested Visits Authorized [id number] Closed 01/25/2021 01/25/2022 1 1 Reason for Visit Outpatient (Routine) - Closed Specialty Diagnoses / Procedures Referred By Contact Refer red To Contact Diagnoses Nonrheumatic Aortic Valve Insufficiency Melody Jolly M.D. [facility] Procedures Echo Transthoracic (TTE) - Complex Valvular Heart Disease [address] [place] [address] Referral ID Status Reason Start Date Expiration Date Visits Requ ested Visits Authorized [id number] Closed 01/25/2021 01/25/2022 1 1 Encounter Details Date Type Department Care Team Description 02/16/2021 Hospital Encounter Department of Jonathan Jolly atic Aortic Cardiovascular Diseases Jessica Oliver Valve Insufficiency in [facility] jaime [address] [facility] [address] [place] [phone] Social History Tobacco Use Types Packs/Day Years Used Date Smoking Tobacco: Never Smokeless Tobacco: Never Sex Assigned at Date Recorded Not on file documented as of this encounter Medications at Time of Discharge Medication Sig Dispensed Refills Start Date End Date amLODIPine (NORVASC) 2.5 amlodipine 2.5 mg 0 /12/2015 mg tablet tablet apixaban (Eliquis) 5 mg [...] Name Priority Date/Time Associated Diagnosis Comme nts (TTE) 2D ECHO Routine 02/16/2021 10:03 Nonrheumatic Aortic Res ults for this DOPPLER COLOR AM CDT Valve Insufficiency procedu re are in the results section. documented in this encounter Results (TTE) 2D ECHO DOPPLER COLOR (02/16/2021 10:03 AM CDT) [facility] gist Method Time Signature Ejection Fraction 59 MC CV EIMS Proximal Ascending 42 MC CV EIMS Aorta Mid-Ascending Aorta 38 MC CV EIMS LV Mass Index 125 MC CV EIMS LV End-Diastolic 56 MC CV EIMS Diameter LV End-Systolic 38 MC CV EIMS Diameter MV E Velocity 0.8 MC CV EIMS MV A Velocity 0.6 MC CV EIMS MV E/A 1.33 MC CV EIMS MV e' Velocity 0.11 MC CV EIMS Lateral MV E/e' Lateral 7.3 MC CV EIMS Left ventricular 50 MC CV EIMS stroke volume index Cardiac Output 5.28 MC CV EIMS Cardiac Index 3.02 MC CV EIMS LV Interventricular 10 MC CV EIMS Septal Wall Thickness LV Posterior Wall 10 MC CV EIMS Thickness LV Relative Wall 36 MC CV EIMS Thickness Tricuspid Annular S? 0.12 MC CV EIMS TR Vmax 2.33 MC CV EIMS RA Pressure 5 MC CV EIMS RV Systolic Pressure 27 MC CV EIM S AV mean gradient 6 MC CV EIMS Aortic valve area 2.38 MC CV EIMS Aortic Valve Area 1.36 MC CV EIMS Index Aortic Valve 0.76 MC CV EIMS Dimensionless Index AV regurgitant 56 MC CV EIMS volume LA Volume Index 42 MC CV EIMS Anatomical Region Laterality Modality Echocardiography Specimen (Source) Anatomical Collection Method Collection Time Re ceived Time Location / / Volume Laterality 02/16/2021 8:17 AM CDT Impressions 02/16/2021 12:33 PM CDT Technically challenging images. ??Status post Ross procedure. ??Status post pulmonary valve homograft. ??LEFT VENTRICLE: ??Mildly en larged left ventricular chamber size. ??Abnormal left ventricular geometry with eccentric left ventricular hypertrophy. ??Calculated 2-D linear left ventricular ejection fraction 59 %. ??In determinate left ventricular filling pressure. ??RIGHT VENTRICLE: ??Normal right ventricular ch papo size. ??Normal right ventricular systolic function. Estimated right ventricular systolic pr essure 27 mmHg (right atrial pressure of 5 mmHg). ATRIA: ??Moderately enlarged left atrial size. ??Left atrial volume index 42 ml/m^2. ??Normal right atrial size. ??CARDIAC VALVES: ??N eo-aortic valve. ??Aortic valve systolic mean Doppler gradient 6 mmHg. ??Moderate-severe aorti c valve regurgitation. ??Aortic regurgitation ERO (PISA) 0.22 cm^2. ??Aortic regurgitant volume ( PISA) 56 ml. ??Mildly thickened mitral valve. ??Mild mitral valve regurgitation. ??Normal pul monary valve homograft. ??Pulmonary valve prosthesis systolic mean Doppler gradient 5 mmHg. ? ?Mild pulmonary valve prosthetic regurgitation. ??Normal tricuspid valve. ??Trivial tricuspid piyush ve regurgitation. ??OTHER ECHO FINDINGS: ??Normal inferior vena cava size. ??Proximal ascending aor ta diameter (diameter 42 mm at proximal level). ??Normal mid ascending aorta diameter (diameter 3 8 mm at mid level). ??Abdominal aorta incompletely visualized. ??Holodiastolic flow reversa ls in the descending thoracic aorta. ??Early diastolic flow reversals in the abdominal aorta. ? ?No atrial level shunt by color flow imaging. ??No intracardiac mass or thrombus, but the l eft atrial appendage cannot be visualized adequately with transthoracic echo to exclude throm bus in this location. ??No pericardial effusion. For the complete report, see the [employer] Documents. Narrative 02/16/2021 12:33 PM CDT For the complete report, see the [employer] Documents. Final Impressions 1. Status post Ross procedure. ??Status post pulmonary valve homograft 2. Moderate-severe aortic valve regurgit ation, ERO (PISA) 0.22 cm^2, regurgitant volume (PISA) 56 ml. 3. Early diastolic flow reversals in the abdominal aorta. ??Holodiastolic flow reversals in the descending thoracic aorta 4. Aortic valve systolic mean Doppler gr adient 6 mmHg. 5. Pulmonary valve prosthesis systolic m isela Doppler gradient 5 mmHg with mild valvular regurgitation 6. Mildly enlarged left ventricular umair bharath size, calculated 2-D linear ejection fraction 59 %. 7. Abnormal left ventricular geometry wi th eccentric left ventricular hypertrophy, indeterminate filling pressure. 8. Normal right ventricular chamber size , normal systolic function, estimated right ventricular systolic pressure 27 mmHg (right atrial pressure of 5 mmHg). 9. No pericardial effusion. Comments Technically challenging images. Consider YUSUF for further definition of the AR if clinically indicated. Procedure Note Lila Crystal M.D. - 02/16/2021Formatti ng of this note might be different from the original. For the complete report, see the [employer] Documents. Final Impressions 1. 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 Moderate-severe aortic valve regurgit ation, ERO (PISA) 0.22 cm^2, regurgitant volume (PISA) 56 ml. 3. Early diastolic flow reversals in the abdominal aorta. Holodiastolic flow reversals in the descending thoracic aorta 4. Aortic valve systolic mean Doppler gr adient 6 mmHg. 5. Pulmonary valve prosthesis systolic m isela Doppler gradient 5 mmHg with mild valvular regurgitation 6. Mildly enlarged left ventricular umair bharath size, calculated 2-D linear ejection fraction 59 %. 7. Abnormal left ventricular geometry wi th eccentric left ventricular hypertrophy, indeterminate filling pressure. 8. Normal right ventricular chamber size , normal systolic function, estimated right ventricular systolic pressure 27 mmHg (right atrial pressure of 5 mmHg). 9. No pericardial effusion. Comments Technically challenging images. Consider YUSUF for further definition of the AR if clinically indicated. Findings Technically challenging images. Status p ost Ross procedure. Status post pulmonary valve homograft. LEFT VENTRICLE: Mildly enlarg ed left ventricular chamber size. Abnormal left ventricular geometry with eccentric left ventricular hypertrophy. Calculated 2-D linear left ventricular ejection fraction 59 %. Inde terminate left ventricular filling pressure. RIGHT VENTRICLE: Normal right ventricular umair bharath size. Normal right ventricular systolic function. Estimated right ventricular systolic pr essure 27 mmHg (right atrial pressure of 5 mmHg). ATRIA: Moderately enlarged left atrial s ize. Left atrial volume index 42 ml/m^2. Normal right atrial size. CARDIAC VALVES: Rene-a ortic valve. Aortic valve systolic mean Doppler gradient 6 mmHg. Moderate-severe aortic valve regurgitation. Aortic regurgitation ERO (PISA) 0.22 cm^2. Aortic regurgitant volume (PI SA) 56 ml. Mildly thickened mitral valve. Mild mitral valve regurgitation. Normal pulmo nary valve homograft. Pulmonary valve prosthesis systolic mean Doppler gradient 5 mmHg. M ild pulmonary valve prosthetic regurgitation. Normal tricuspid valve. Trivial tricuspid valve regurgitation. OTHER ECHO FINDINGS: Normal inferior vena cava size. Proximal ascending aorta diameter (diameter 42 mm at proximal level). Normal mid ascending aorta diameter (diameter 3 8 mm at mid level). Abdominal aorta incompletely visualized. Holodiastolic flow reversals in the descending thoracic aorta. Early diastolic flow reversals in the abdominal aorta. N o atrial level shunt by color flow imaging. No intracardiac mass or thrombus, but the l eft atrial appendage cannot be visualized adequately with transthoracic echo to exclude throm bus in this location. No pericardial effusion. For the complete report, see the [employer] Documents. Melody Jolly M.D. CV ECHO PROCEDURES documented in this encounter Visit Diagnoses Diagnosis Nonrheumatic Aortic Valve Insufficiency documented in this encounter
--- OUTSIDE RECORDS SUMMARY | 2022-04-25 09:09 | XMS_ITS | Encounter Summary ---
:1945 Author Organization [facility] Address [address] [place] [address] Care Team Providers Name Role Phone Unavailable Primary Care Provider Unavailable Reason for Referral Specialty Diagnoses / Procedures Referred By Contact Refer red To Contact Melody Jolly M.D. [facility] [address] [place] [address] Referral ID Status Reason Start Date Expiration Date Visits Requ ested Visits Authorized Scheduling Instructions VALV - Sofia utpatient (Routine) - Closed Specialty Diagnoses / Procedures Referred By Contact Refer red To Contact Diagnoses Nonrheumatic Aortic Valve Insufficiency Melody Jolly M.D. [facility] Procedures ECG 12 Lead [address] [place] [address] Referral ID Status Reason Start Date Expiration Date Visits Requ ested Visits Authorized [id number] Closed 01/25/2021 01/25/2022 1 1 utpatient (Routine) - Closed Specialty Diagnoses / Procedures Referred By Contact Refer red To Contact Diagnoses Nonrheumatic Aortic Valve Insufficiency Melody Jolly M.D. [facility] Procedures Echo Transthoracic (TTE) - Complex Valvular Heart Disease [address] [place] [address] Referral ID Status Reason Start Date Expiration Date Visits Requ ested Visits Authorized [id number] Closed 01/25/2021 01/25/2022 1 1 Encounter Details Date Type Department Care Team Description 01/21/2021 Orders Only Department of Melody Jolly, Nonrheumatic Aortic Cardiovascular Medicine Desiree Valve Insufficiency in [facility] [address] (Primary Dx) [address] [place] [phone] Social History Tobacco Use Types Packs/Day Years Used Date Smoking Tobacco: Never Assessed Sex Assigned at Date Recorded Not on file documented as of this encounter Plan of Treatment Scheduled Referrals Name Type Priority Associated Diagnoses Order S chedule Patient Education Outpatient Referral Routine Nonrheumatic Aor tic Expected: - Heart valve Valve Insufficiency 021, class education Expires: visit (clinic) 01/22/2024 documented as of this encounter Results DX Chest AP or PA and Lateral 2 Views (02/16/2021 12:12 PM CDT) Anatomical Region Laterality Modality Chest, Thoracic RST LOS, Thoracic ARZ LOS, Thoracic N/A Digital Radiography FLA LOS Specimen (Source) Anatomical Collection Method Collection Time Re ceived Time Location / / Volume Laterality 02/16/2021 12:35 PM CDT Impressions 02/16/2021 12:36 PM CDT Sternotomy. Abandoned pacer wires. Mild to moderate cardiomegaly with prominent fat pads in the cardiophr enic angles. No increase in pulmonary vascularity or interstitial opacities to specifically suggest edema/CHF. Narrative 02/16/2021 12:36 PM CDT EXAM: ??DX CHEST AP OR PA AND LATERAL 2 VIEWS Procedure Note Carlos Colón M.D. - 02/16/2021Fo rmatting of this note might be different from the original. EXAM: DX CHEST AP OR PA AND LATERAL 2 EWS IMPRESSION: Sternotomy. Abandoned pacer wires. Mild to moderate cardiomegaly with prominent fat pads in the cardiophr enic angles. No increase in pulmonary vascularity or interstitial opacities to specifically suggest edema/CHF. Melody Jolly M.D. IMG DIAGNOSTIC IMAGING PROCE [facility] ECG 12 Lead (02/16/2021 11:45 AM CDT) P athologist Signature Ventricular Rate 60 BPM MUSE ECG/Min [place] Interval 186 ms MUSE QRSD Interval 134 ms MUSE QT Interval 460 ms MUSE QTC Interval 460 ms MUSE P [place] 56 degrees MUSE R [place] 2 degrees MUSE T Wave [place] 110 degrees MUSE Specimen Anatomical Collection Method Collection Time Receive d Time (Source) Location / / Volume Laterality 02/16/2021 11:45 02/16/2021 AM CDT 12:02 PM CDT Impressions MUSE - 02/16/2021 11:52 AM CDT Normal sinus rhythm Left bundle branch block T wave abnormality, consider lateral isc hemia No previous ECGs available Reviewed by MIGDALIA Johnson Narrative This result has an attachment that is no t available. Procedure Note Robles Sewell M.D. - 02/16/2021Formatt ing of this note might be different from the original. IMPRESSION: Normal sinus rhythm Left bundle branch block T wave abnormality, consider lateral isc hemia No previous ECGs available Reviewed by MIGDALIA Johnson Melody Jolly M.D. ECG ORDERABLES Performing Organization Address City/State/ZIP Code Phon e Number MUSE MUSE NA (TTE) 2D ECHO DOPPLER COLOR (02/16/2021 10:03 AM CDT) [facility] Method Time Signature Ejection Fraction 59 [...] report, see the Order-L evel Documents. Narrative 02/16/2021 12:33 PM CDT For the complete report, see the Order-iSSimple evel Documents. Final Impressions 1. Status post [...] original. For the complete report, see the [employer]-iSSimple evNimble TV Documents. Final Impressions 1. Status post Ross [...] Documents. Melody Jolly M.D. CV ECHO PROCEDURES (ABNORMAL) NT-Pro B-Type Natriuretic Peptide (BNP) (02/16/2021 6:48 AM CDT) P athologist Signature NT-Pro BNP 257 (H) <=230 pg/mL 02/16/2021 DTL 8:56 AM CDT Comment: NT-proBNP values less than 300 pg/mL hav e a 99% negative predictive value for excluding acute congestive heart rick lure. A cutoff of 1200 pg/mL for patients with an eGFR<60 yields a diagno stic sensitivity and specificity of 89% and 72% for acute congestive heart f ailure. ??A diagnostic NT-proBNP cutoff of 1800 pg/mL has been suggested in adults over 75 years of age in the absence of renal failure. Specimen Anatomical Collection Method Collection Time Receive d Time (Source) Location / / Volume Laterality Blood (Blood, 02/16/2021 6:48 AM 02/17/20 7:33 Venous) CDT AM CDT Melody Jolly M.D. LAB BLOOD ADD-ON Performing Organization Address City/State/ZIP Code Phon e Number [facility] - [address] [place], [place] [address] [facility] [place] [address] Laboratories-[facility] [address] (ABNORMAL) Lipid Panel (02/16/2021 6:48 AM CDT) athologist Signature Cholesterol, 162 mg/dL 02/16/2021 DTL Total 8:03 AM CDT Comment: ----REFERENCE VALUE---- Desirable: < 200 Borderline high: 200 - 239 High: > or = 240 Triglycerides 162 (H) mg/dL 02/16/2021 8:03 AM CDT DTL Comment: ----REFERENCE VALUE---- Normal: <150 Borderline high: 150-199 High: 200-499 Very high: > or =500 Cholesterol, HDL, S 59 >=50 mg/dL 02/16/2021 8:03 AM CDT DTL Calculated LDL 71 mg/dL 02/16/2021 8:03 AM CDT DT L Comment: ----REFERENCE VALUE---- Desirable: <100 mg/dL Above Desirable: 100-129 mg/dL Borderline High: 130-159 mg/dL High: 160-189 mg/dL Very High: >=190 mg/dL Cholesterol, Non-HDL, Calculated 103 mg/dL 021 8:03 AM CDT DTL Comment: ----REFERENCE VALUE---- Desirable: <130 Above Desirable: 130-159 Borderline high: 160-189 High: 190-219 Very high: > or =220 Specimen Anatomical Collection Method Collection Time Receive d Time (Source) Location / / Volume Laterality Blood (Blood, 02/16/2021 6:48 AM 10/06/20 21 7:35 Venous) CDT AM CDT Melody Jolly M.D. LAB BLOOD ADD-ON Performing Organization Address City/State/ZIP Code Phon e Number [facility] - [address] [place], [place] [address] [facility] [place] [address] [facility] [address] [facility] (ABNORMAL) CBC with Differential, Blood (02/16/2021 6:48 AM CDT) [facility] Method Time Signature Hemoglobin 13.3 11.6 - 02/16/2021 DTL 15.0 g/dL 7:29 AM CDT Hematocrit 41.2 35.5 - 02/16/2021 DTL 44.9 % 7:29 AM CDT Erythrocytes 4.08 3.92 - 02/16/2021 DTL 5.13 7:29 AM CDT x10(12)/L MCV 101.0 (H) 78.2 - 02/16/2021 DTL 97.9 fL 7:29 AM CDT RBC Distrib Width 13.0 12.2 - 02/16/2021 DTL 16.1 % 7:29 AM CDT Platelet Count 190 157 - 371 02/16/2021 DTL x10(9)/L 7:29 AM CDT Leukocytes 7.6 3.4 - 9.6 02/16/2021 DTL x10(9)/L 7:29 AM CDT Neutrophils 4.95 1.56 - 02/16/2021 DTL 6.45 7:29 AM CDT x10(9)/L Lymphocytes 1.82 0.95 - 02/16/2021 DTL 3.07 7:29 AM CDT x10(9)/L Monocytes 0.66 0.26 - 02/16/2021 DTL 0.81 7:29 AM CDT x10(9)/L Eosinophils 0.17 0.03 - 02/16/2021 DTL 0.48 7:29 AM CDT x10(9)/L Basophils 0.04 0.01 - 02/16/2021 DTL 0.08 7:29 AM CDT x10(9)/L Specimen Anatomical Collection Method Collection Time Receive d Time (Source) Location / / Volume Laterality Blood (Blood, 02/16/2021 6:48 AM 02/17/20 21 7:17 Venous) CDT AM CDT Melody Jolly M.D. LAB BLOOD ADD-ON Performing Organization Address City/[facility]/ZIP Code Phon e Number [facility] - [address] [address] [address] S-TSH (Thyroid-Stimulating Hormone - Sensitive) (02/16/2021 6:48 AM CDT) P athologist Signature TSH, Sensitive 3.0 0.3 - 4.2 02/16/2021 DTL mIU/L 8:03 AM CDT Specimen Anatomical Collection Method Collection Time Receive d Time (Source) Location / / Volume Laterality Blood (Blood, 02/16/2021 6:48 AM 02/17/20 7:35 Venous) CDT AM CDT Melody Jolly M.D. LAB BLOOD ADD-ON Performing Organization Address [facility] Code Phon e Number [facility] - [address] [address] [address] (ABNORMAL) Prothrombin Time (PT) (02/16/2021 6:48 AM CDT) Patholo gist Method Time Signature Prothrombin 14.7 (H) 9.4 - 12.5 02/16/2021 DTL Time, P sec 7:40 AM CDT INR 1.3 0.9 - 1.1 02/16/2021 DTL 7:40 AM CDT Comment: ----ADDITIONAL INFORMATION---- Standard intensity warfarin therapeutic range: 2.0 to 3.0 ?? High intensity warfarin therapeutic rang e: 2.5 to 3.5 Specimen Anatomical Collection Method Collection Time Receive d Time (Source) Location / / Volume Laterality Blood (Blood, 02/16/2021 6:48 AM 02/17/20 21 7:16 Venous) CDT AM CDT Melody Jolly M.D. LAB BLOOD ADD-ON Performing Organization Address City/[facility]/ZIP Code Phon e Number [facility] - [address] [address] [facility] [address] [facility] Sodium (02/16/2021 6:48 AM CDT) athologist Signature Sodium, S 141 135 - 145 02/16/2021 7:56 DTL mmol/L AM CDT Specimen Anatomical Collection Method Collection Time Receive d Time (Source) Location / / Volume Laterality Blood (Blood, 02/16/2021 6:48 AM 02/17/20 7:33 Venous) CDT AM CDT Melody Jolly M.D. LAB BLOOD ADD-ON Performing Organization Address City/[facility] Phon e Number [facility] - [address] Potassium (02/16/2021 6:48 AM CDT) athologist Signature Potassium, S 4.5 3.6 - 5.2 02/16/2021 DTL mmol/L 7:56 AM CDT Specimen Anatomical Collection Method Collection Time Receive d Time (Source) Location / / Volume Laterality Blood (Blood, 02/16/2021 6:48 AM 02/17/20 7:33 Venous) CDT AM CDT Melody Jolly M.D. LAB BLOOD ADD-ON Performing Organization Address City/State/ZIP Code Phon e Number [facility] - [address] (ABNORMAL) Glucose, Fasting (02/16/2021 6:48 AM CDT) athologist Signature Glucose, P 104 (H) 70 - 100 02/16/2021 DTL mg/dL 7:49 AM CDT Last Intake 10 hr 02/16/2021 DTL 7:34 AM CDT Specimen Anatomical Collection Method Collection Time Receive d Time (Source) Location / / Volume Laterality Blood (Blood, 02/16/2021 6:48 AM 02/17/20 7:34 Venous) CDT AM CDT Melody Jolly M.D. LAB BLOOD NON ADD-ON Performing Organization Address City/[facility]/ZIP Code Phon e Number [facility] - [address] [place], [place] [address] [place] [address] [place], [place] [address] [place] [address] (ABNORMAL) Creatinine with Estimated GFR (02/16/2021 6:48 AM CDT) Analysis Performed At Patho logist Time Signature Creatinine 1.05 (H) 0.59 - 02/16/2021 DTL 1.04 mg/dL 8:03 AM CDT eGFR-Non 52 (L) >=60 02/16/2021 DTL Black/ mL/min/BSA 8:03 AM CDT Slovenian Comment: ----ADDITIONAL INFORMATION---- Estimated GFR calculated using the 2009 CKD_EPI creatinine equation. eGFR-Black/ 60 >=60 mL/min/BSA 2020 8:03 AM CDT DTL Comment: ----ADDITIONAL INFORMATION---- Estimated GFR calculated using the 2009 CKD_EPI creatinine equation. Specimen Anatomical Collection Method Collection Time Receive d Time (Source) Location / / Volume Laterality Blood (Blood, 02/16/2021 6:48 AM 02/17/20 7:35 Venous) CDT AM CDT Authorizing Provider Result Luci Jolly M.D. LAB BLOOD ADD-ON Performing Organization Address City/[facility]/ZIP Code Phon e Number [facility] - [address] [place] [address] [facility] [place] [address] Laboratories[address] Albumin (02/16/2021 6:48 AM CDT) P athologist Signature Albumin, S 4.2 3.5 - 5.0 02/16/2021 DTL g/dL 7:56 AM CDT Specimen Anatomical Collection Method Collection Time Receive d Time (Source) Location / / Volume Laterality Blood (Blood, 02/16/2021 6:48 AM 02/17/20 21 7:33 Venous) CDT AM CDT Authorizing Provider Result Luci Jolly M.D. LAB BLOOD ADD-ON Performing Organization Address City/[facility]/ZIP Code Phon e Number [facility] - [address] [place], [place] [address] [facility] [place] [address] [facility] [address] [facility] documented in this encounter Visit Diagnoses Diagnosis Nonrheumatic Aortic Valve Insufficiency - Primary Nonrheumatic Aortic Valve Insufficiency Nonrheumatic Aortic Valve Insufficiency documented in this encounter
--- OUTSIDE RECORDS SUMMARY | 2022-04-25 09:09 | XMS_ITS | Encounter Summary ---
:1945 Author Organization [facility] Address [address] [place] [address] Care Team Providers Name Role Phone Unavailable Primary Care Provider Unavailable Encounter Details Date Type Department Care Team Description 02/16/2021 Hospital Encounter Department of Jonathan Jolly Aortic Laboratory Medicine Desiree Oliver Valve Insufficiency and Pathology, [address] [facility] in [place], [place] [address] [address] [facility] [phone] [place], [place] (Work) [phone] Social History Tobacco Use Types Packs/Day Years [...] Name Priority Date/Time Associated Diagnosis Comme nts LIPID PANEL, S Routine 02/16/2021 6:48 AM Nonrheumatic Aortic Results for this CDT Valve Insufficiency procedur e are in the results section. NT-PRO B-TYPE Routine 02/16/2021 6:48 AM Nonrheumatic Aortic R esults for this NATRIURETIC PEPTIDE CDT Valve Insufficiency p rocedure are in (BNP), S the results section. PROTHROMBIN TIME Routine 02/16/2021 6:48 AM Nonrheumatic Aorti c Results for this (PT), P CDT Valve Insufficiency procedur e are in the results section. CBC WITH Routine 02/16/2021 6:48 AM Nonrheumatic Aortic Re sults for this DIFFERENTIAL, B CDT Valve Insufficiency proce dure are in the results section. THYROID-STIMULATING Routine 02/16/2021 6:48 AM Nonrheumatic Ao rtic Results for this HORMONE-SENSITIVE CDT Valve Insufficiency pro cedure are in (S-TSH) the results section. SODIUM, S/P Routine 02/16/2021 6:48 AM Nonrheumatic Aortic Re sults for this CDT Valve Insufficiency procedur e are in the results section. POTASSIUM, S/P Routine 02/16/2021 6:48 AM Nonrheumatic Aortic Results for this CDT Valve Insufficiency procedur e are in the results section. GLUCOSE, FASTING, Routine 02/16/2021 6:48 AM Nonrheumatic Aort ic Results for this S/P CDT Valve Insufficiency procedur e are in the results section. CREATININE WITH Routine 02/16/2021 6:48 AM Nonrheumatic Aortic Results for this EGFR, S/P CDT Valve Insufficiency procedur e are in the results section. ALBUMIN, S/P Routine 02/16/2021 6:48 AM Nonrheumatic Aortic Re sults for this CDT Valve Insufficiency procedur e are in the results section. documented in this encounter Results (ABNORMAL) NT-Pro B-Type Natriuretic Peptide (BNP) (02/16/2021 [...] Organization Address City/State/ZIP Code Phon e Number [facility] - [address] [place], [place] [address] [facility] [place] [address] Laboratories-[facility] [address] (ABNORMAL) Lipid Panel (02/16/2021 [...] Organization Address City/State/ZIP Code Phon e Number [facility] - [address] [place], [place] [address] [facility] [place] [address] [facility] [address] [facility] (ABNORMAL) CBC with Differential, Blood (02/16/2021 6:48 AM CDT) [facility] Method Time Signature Hemoglobin 13.3 11.6 - [...] Laterality Blood (Blood, 02/16/2021 6:48 AM 02/17/20 7:17 Venous) CDT AM CDT Melody Jolly M.D. LAB BLOOD ADD-ON Performing Organization Address City/[facility] Phon e Number [facility] - [address] [place], [place] [address] [facility] [place] [address] Laboratories-[address] S-TSH (Thyroid-Stimulating Hormone - Sensitive) (02/16/2021 6:48 AM CDT) P athologist Signature TSH, Sensitive 3.0 0.3 - 4.2 02/16/2021 DTL mIU/L 8:03 AM CDT Specimen Anatomical Collection Method Collection Time Receive d Time (Source) Location / / Volume Laterality Blood (Blood, 02/16/2021 6:48 AM 02/17/20 7:35 Venous) CDT AM CDT Melody Jolly M.D. LAB BLOOD ADD-ON Performing Organization Address City/[facility] Code Phon e Number [facility] - [address] [place], [place] [address] [place] [address] Laboratories-[address] (ABNORMAL) Prothrombin Time (PT) (02/16/2021 6:48 [...] Laterality Blood (Blood, 02/16/2021 6:48 AM 02/17/20 7:16 Venous) CDT AM CDT Melody Jolly M.D. LAB BLOOD ADD-ON Performing Organization Address City/[facility]/ZIP Code Phon e Number [facility] - [address] 200 [facility] Sodium (02/16/2021 6:48 AM CDT) P athologist Signature Sodium, S 141 135 - 145 02/16/2021 7:56 DTL mmol/L AM CDT Specimen Anatomical Collection Method Collection Time Receive d Time (Source) Location / / Volume Laterality Blood (Blood, 02/16/2021 6:48 AM 02/17/20 7:33 Venous) CDT AM CDT Melody Jolly M.D. LAB BLOOD ADD-ON Performing Organization Address City/[facility] Phon e Number [facility] - [address] [place] [id number] Potassium (02/16/2021 6:48 AM CDT) P athologist Signature Potassium, S 4.5 3.6 - 5.2 02/16/2021 DTL mmol/L 7:56 AM CDT Specimen Anatomical Collection Method Collection Time Receive d Time (Source) Location / / Volume Laterality Blood (Blood, 02/16/2021 6:48 AM 02/17/20 7:33 Venous) CDT AM CDT Melody Jolly M.D. LAB BLOOD ADD-ON Performing Organization Address City/State/ZIP Code Phon e Number [facility] - [address] (ABNORMAL) Glucose, Fasting (02/16/2021 6:48 AM CDT) P athologist Signature Glucose, P 104 (H) 70 - 100 02/16/2021 DTL mg/dL 7:49 AM CDT Last Intake 10 hr 02/16/2021 DTL 7:34 AM CDT Specimen Anatomical Collection Method Collection Time Receive d Time (Source) Location / / Volume Laterality Blood (Blood, 02/16/2021 6:48 AM 02/17/20 7:34 Venous) CDT AM CDT Melody Jolly M.D. LAB BLOOD NON ADD-ON Performing Organization Address City/[facility] Phon e Number [facility] - [address] [place], [place] [address] [facility] [place], [place] [address] [place] [address] (ABNORMAL) Creatinine with Estimated GFR (02/16/2021 6:48 AM CDT) Analysis Performed At Patho logist Time Signature Creatinine 1.05 (H) 0.59 - 02/16/2021 DTL 1.04 mg/dL 8:03 AM CDT eGFR-Non 52 (L) >=60 02/16/2021 DTL Black/ mL/min/BSA 8:03 AM CDT Filipino Comment: ----ADDITIONAL INFORMATION---- Estimated GFR calculated using the 2009 CKD_EPI creatinine equation. eGFR-Black/ 60 >=60 mL/min/BSA 2020 8:03 AM CDT DTL Comment: ----ADDITIONAL INFORMATION---- Estimated GFR calculated using the 2009 CKD_EPI creatinine equation. Specimen Anatomical Collection Method Collection Time Receive d Time (Source) Location / / Volume Laterality Blood (Blood, 02/16/2021 6:48 AM 02/17/20 21 7:35 Venous) CDT AM CDT Melody Jolly M.D. LAB BLOOD ADD-ON Performing Organization Address City/[facility] Phon e Number [facility] - [address] [place], [place] [address] [facility] [place] [address] Albumin (02/16/2021 6:48 AM CDT) P athologist Signature Albumin, S 4.2 3.5 - 5.0 02/16/2021 DTL g/dL 7:56 AM CDT Specimen Anatomical Collection Method Collection Time Receive d Time (Source) Location / / Volume Laterality Blood (Blood, 02/16/2021 6:48 AM 02/17/20 21 7:33 Venous) CDT AM CDT Melody Jolly M.D. LAB BLOOD ADD-ON Performing Organization Address City/State/ZIP Code Phon e Number [facility] - [address] [place], [place] [address] [facility] [place] [address] Laboratories-[facility] [address] documented in this encounter Visit Diagnoses Diagnosis Nonrheumatic Aortic Valve Insufficiency documented in this encounter
--- OUTSIDE RECORDS SUMMARY | 2022-04-25 09:09 | XMS_ITS | Encounter Summary ---
:1945 Author Organization [facility] Address [address] [place] [address] Care Team Providers Name Role Phone Unavailable Primary Care Provider Unavailable Encounter Details Date Type Department Care Team Description 02/16/2021 Hospital Encounter Department of Jonathan Jolly Aortic Radiology, Femi Oliver M.D. Valve Insufficiency Building, in [address] [place] [address] [place] [id number] [place], [place] [phone] (Work) [phone] Social History Tobacco Use Types Packs/Day Years [...] Name Priority Date/Time Associated Diagnosis Comme nts DX CHEST AP OR RAD - Routine 02/16/2021 12:12 Nonrheumatic Aortic R esults for this PA AND LATERAL 2 (most inpatients PM CDT Valve Insufficiency procedure are in VIEWS and all the results outpatients) section. documented in this encounter Results DX Chest AP or [...] interstitial opacities to specifically suggest edema/CHF. Melody [facility] documented in this encounter Visit Diagnoses Diagnosis Nonrheumatic Aortic Valve Insufficiency documented in this encounter Additional Health Concerns Infection Onset Date Last Indicated Resolved Time COVID19 Pending 02/16/2021 02/16/2021 03/08/2021 4:48 AM CDT documented as of this encounter
--- OUTSIDE RECORDS SUMMARY | 2022-04-25 09:09 | XMS_ITS | Encounter Summary ---
:1945 Author Organization [facility] Address [address] [place] [address] Care Team Providers Name Role Phone Unavailable Primary Care Provider Unavailable Reason for Referral Outpatient (Routine) - Closed Specialty Diagnoses / Procedures Referred By Contact Refer red To Contact Cardiovascular Disease Diagnoses Replacement Heart Valve Tissue Atrial Fibrillation Unspecified Bundle Branch Block Left Hypertension Essential Primary Nonrheumatic Aortic Valve Insufficiency Markos Villafana M.D. [facility] [address] [place] Referral ID Status Reason Start Date Expiration Date Visits Requ ested Visits Authorized [id number] Closed 12/24/2020 12/24/2021 1 1 Encounter Details Date Type Department Care Team Description 12/24/2020 Community Orders [facility] Markos Villafana, Replacement Heart Valve Tiss ue (Primary Dx); Mauri1 Gerber Navarro M.D. Atrial Fibrillation (HCC); Dr Keshia Jamil Bundle Branch Block Left; [place], [place] Ramon Matta Hypertension Essential Primary; [phone] [place] Nonrheumatic A ortic Valve Insufficiency [id number] Social History Tobacco Use Types Packs/Day Years Used Date Smoking Tobacco: Never Assessed Sex Assigned at Date Recorded Not on file documented as of this encounter Plan of Treatment Scheduled Referrals Name Type Priority Associated Diagnoses Order [facility] Cardiovascular Outpatient Routine Replacement Heart Expected : Diseases Referral Referral Valve Tissue 12/24/2020 Atrial Fibrillation (Approxi mate), (HCC) Expires: Bundle Branch Block 12/25/19 24 Left Hypertension Essential Primar y Nonrheumatic Aortic Valve Insufficiency documented as of this encounter Visit Diagnoses Diagnosis Replacement Heart Valve Tissue - Primary Atrial Fibrillation Unspecified Bundle Branch Block Left Hypertension Essential Primary Nonrheumatic Aortic Valve Insufficiency documented in this encounter
--- OUTSIDE RECORDS SUMMARY | 2022-04-25 09:09 | XMS_ITS | Encounter Summary ---
:1945 Author Organization [facility] Address [address] [place] [address] Care Team Providers Name Role Phone Unavailable Primary Care Provider Unavailable Encounter Details Date Type Department Care Team Description 01/25/2021 Clinical Communication Department of [facility], Cardiovascular Medicine Desiree Kahn in 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
[2022-04-25 09:20] LABS: Basophils Absolute Auto 0.02 K/uL (0.00-0.30); Basophils Percent Auto 0.4 % (0.0-3.0); Eosinophils Percent Auto 1.9 % (0.0-7.0); Hematocrit 42.5 % (33.0-51.0); Hemoglobin* 13.9 gm/dL (12.0-16.0); INR, Point of Care* 1.1 (0.8-1.4); Lymphocytes Percent Auto 26.8 % (20-44); Mean Corpuscular HGB Conc 33 gm/dL (32-36); Mean Corpuscular Hemoglobin 32 pg (26-34); Mean Corpuscular Volume 99 fL (80-100); Monocytes Absolute Auto 0.38 K/UL (0.00-0.90); Monocytes Percent Auto 7.2 % (0.0-11.0); Neutrophils Absolute Auto 3.37 K/uL (1.7-7.0); Neutrophils Percent Auto 63.7 % (42.0-72.0); Platelet Count* 199 K/uL (140-440); RDW Coefficient of Variation % 12.3 % (11.5-15.5); Red Blood Count 4.31 m/uL (4.00-5.20); White Blood Count* 5.29 K/uL (4.50-11.00)
[2022-04-25 09:22] LABS: Slide Review Reflex No
[2022-04-25 11:34] LABS: Albumin* 4.2 g/dL (3.3-5.0)
[2022-04-25 11:35] LABS: Chloride* 104 mmol/L (96-114); Potassium* 4.6 mmol/L (3.6-5.1); Sodium* 138 mmol/L (135-149)
[2022-04-25 11:37] LABS: Aspartate Amino Transferase* 31 U/L (12-35); Bilirubin Total* 0.9 mg/dL (0.1-1.5); Blood Urea Nitrogen* 16 mg/dL (7-30); Carbon Dioxide* 27 mmol/L (20-32); Cholesterol* 147 mg/dL (90-199); Creatinine* 0.9 mg/dL (0.5-1.5); Estimated Glomerular Filt Rate 66 ml/min; Total Protein* 6.7 g/dL (6.0-8.3)
[2022-04-25 11:38] LABS: Alanine Aminotransferase* 37 U/L (4-35); Alkaline Phosphatase* 60 U/L (40-150); Calcium* 8.8 mg/dL (8.4-10.6); Glucose* 105 mg/dL (60-115); HDL Cholesterol* 53 mg/dL (>=50); LDL Cholesterol Calculated 62 mg/dL (<100); Triglycerides* 159 mg/dL (40-149)
== END 2022-04-25 08:58 | disposition home or self-care (01) ==
LOC: NFLDREF 08:57
PROVIDERS: PCP Internal Medicine; Visit Provider Internal Medicine
DX: E78.5 Hyperlipidemia, unspecified (principal); I10 Essential (primary) hypertension; R73.03 Prediabetes; I48.0 Paroxysmal atrial fibrillation; E78.41 Elevated Lipoprotein(a)
CPT/HCPCS: 80053; 80061; 83036; 83695; 85025; 85610

== ENCOUNTER 2022-08-29 09:44 | Outpatient (CLI) | payer MEDICARE, BC, SELFPAY ==
--- NOTE | 2022-08-29 10:15 | CRLHL7_ITS ---
For Patients: As a result of the Cures Act, medical imaging exams and procedure reports are released immediately into your electronic medical record. You may view this report before your referring provider. If you have questions, please contact your health care provider. BILATERAL SCREENING MAMMOGRAM WITH COMPUTER-AIDED DETECTION AND TOMOSYNTHESIS TECHNIQUE: CC and MLO views were obtained. These mammographic images have been obtained using full-field digital technique. These mammographic images were interpreted with the benefit of computer-aided detection. Breast Tomosynthesis was used in this interpretation. COMPARISON FILM: 07/21/21. FINDINGS: There are scattered areas of fibroglandular density. IMPRESSION: There is no radiographic evidence for malignancy. ASSESSMENT: BI-RADS Category 1: Negative RECOMMENDATION: Routine screening mammogram in 1 year. A lay language report of this examination will be provided to the patient. Nathan Garzon M.D. Diagnostic Radiologist [email or web address] Transcribed: 8:34 a.m. PT/Dictated by: Nathan Garzon MD @ 08/29/2022 11:21:00 AM (Electronically Signed)
== END 2022-08-29 09:45 | disposition home or self-care (01) ==
LOC: MAMMO 09:46
PROVIDERS: PCP Internal Medicine; Visit Provider Internal Medicine
DX: Z12.31 Encounter for screening mammogram for malignant neoplasm of breast (principal)
CPT/HCPCS: 77063; 77067

== ENCOUNTER 2022-09-26 11:00 | Outpatient (RCR) | payer MEDICARE, BC, SELFPAY ==
--- NOTE | 2022-08-28 13:16 | PT.OPEX ---
PT [place] Outpatient Eval PT [facility] Outpatient Eval Start: 08/28/22 08:41 Freq: Status: Active Protocol: Document 08/28/22 08:42 ENM (Rec: 08/28/22 10:52 ENM [id number]) E-signed By Hellen Mendoza, DPT Physical Therapy Outpatient Evaluation Insurance Information Recert Due Date 11/20/22 Insurance Name Medicare B Medical Diagnosis pain in unspecified knee Treating Diagnosis pain in left knee, decreased hip ROM, decreased glute strength, stiffness of left knee Referring MD Rivera Subjective Subjective Patient presents to PT for complaints of left knee pain of the medial joint line. A year ago patient was seen for PT for sciatica and she had been trying to do some of those exercises for the knee pain. The knee started getting irritated with doing balance classes at [address]. She states that she has arthritis in her hands and wonders if it is the same for her knee. When it first started it was very painful and would wake her at night. It is stiff in the morning and hurts to bend now. With walking more the pain and stiffness gets better . The left knee feels weak so she doesn't trust it. Standing for longer periods of time seem to aggravate it. Doesn't take any medication for it. [facility] still [facility] the [facility] a week to do 20 mins of the treadmill and alternate strength with weights or in the pool. PMHx: hx of sciatica, heart condition, HTN, arthritis Pain Comments at its best: mild pain at its worse: 5/10 easing: walking aggravating: standing for long periods, sitting for longer periods of time Current Work Status Retired Objective Other/Pertinent Objective ROM L knee 0-2-122 + for strain with knee ext R knee 2-0-122 hip flexion WNL B IR WNL but stiffer on L compared to R. With passive hip IR + for pain ER WNL lumbar flexion, ext and rot WNL no pains strength: 5x STS 11.97s without use of arms knee extensors 4+/5 B hip abductors : L 4-/5 R 4+/5 palpation/joint mobility: + for pain palpating of medial joint line gait/balance: no overt gait deviations, slightly less stance time of LLE throughout gait cycle SLS able to hold 10s B special tests: anterior drawer - posterior drawer - varus - valgus - Mcmurrays - clarks compression - -SLR for reproduction of medial knee pains + for tightness and pain into the knee with sonny positioning Assessment Assessment/Impression Patient is a 76 year old female presenting with medial left knee pain that has been present for about a year. Their primary complaint is of stiffness with sitting and getting up in the morning that subsides with mobility throughout the day. As well as pain with standing for longer periods of time. Pains and stiffness do not limit the patient but are bothersome throughout the day. Upon assessment patients concordant pains brought on with hip IR, sonny test hip flexor stretch, palpation of medial joint line and ambulation. Special testing - for intra-articular pathology. Weakness noted in hip abductors and knee extensors. Symptoms consistent with knee OA, potential different diagnosis is referral from hip joint. Patient would greatly benefit from skilled PT to address impairments stated above in order to perform all functional and recreational mobility without significant discomfort and stiffness. Primary Functional Limitations sitting, standing for longer periods, Plan of Care Rehabilitation Potential Good Physical Therapy Goals In 6-8 visits: 1. Patient will be IND with HEP and self management of symptoms 2. Patient will be able to sit throughout their day without pain at the left knee for improved sitting tolerance 3. Patient will wake up in the morning with a 50% reduction in stiffness felt at the left knee in order to perform all self cares/ADLS without limitations 4. Patient will be able to stand throughout her day with 2/10 or less knee pain in order to perform all her household and recreational activities Coordination/Communication With Referral Source Treatment Plan/Direct Interventions Gait Training,Joint Mobilization,Manual Therapy, Neuromuscular Re-ed,Self-Care/ Home Management,Therapeutic Activities,Therapeutic Exercises Frequency/Duration 1x a week for 6 weeks, as needed for 2-3 visits Patient Will Be Discharged From Therapy Completion of LTG(s), Independent w/HEP Evaluation Billing Untimed Code Treatment Minutes 37 Complexity Low Certification Information Initial Certification Date 08/28/22 Ending Certification Date 11/20/22 Provider Signature Shows Agreement With POC & Medical Necessity Physician Signature & Date Requested Please Sign/Date Here Physician Comment/Change : Physician NPI Number #
== END 2022-11-27 14:50 | disposition home or self-care (01) ==
PROVIDERS: PCP Internal Medicine; Visit Provider Internal Medicine
DX: M25.562 Pain in left knee (principal); Z51.89 Encounter for other specified aftercare
CPT/HCPCS: 97110; 97161

== ENCOUNTER 2023-01-23 12:43 | Emergency (ER) | payer MEDICARE, BC, SELFPAY ==
[2023-01-23 12:49] VITALS: BP 167/69; PULSE 65; RESP 16; TEMP 36; O2SAT 98; BMI 27.4
--- NOTE | 2023-01-23 14:00 | CRLHL7_ITS ---
For Patients: As a result of the Century Cures Act, medical imaging exams and procedure reports are released immediately into your electronic medical record. You may view this report before your referring provider. If you have questions, please contact your health care provider. INDICATION: Pain behind the left knee. COMPARISON: None. TECHNIQUE: Grayscale, color, and duplex Doppler imaging of the deep veins in the left leg. FINDINGS: Examined veins: Left common femoral, femoral, popliteal, peroneal veins. The examined veins are patent with normal grayscale appearance. Normal compressibility. Normal color Doppler flow. Normal venous wave forms on duplex Doppler imaging. Normal augmentation of flow seen. The right common femoral vein was examined for comparison and is also normal. The area of patient`s pain adjacent to the left knee demonstrates what appears to be a small fluid collection that may be very close to the proximal fibula. IMPRESSION: 1. No left leg deep vein thrombus. 2. Small amount of fluid at the patient`s area of pain could be a small ganglion or bursa. Position is not consistent with a Reyna`s/popliteal fossa cyst. Dictated by Anna Marie Olivares MD @ 01/23/2023 3:02:20 PM (Electronically Signed)
[2023-01-23 14:12] VITALS: PULSE 63; O2SAT 97
[2023-01-23 14:37] VITALS: BP 138/62
--- NOTE | 2023-01-23 16:46 | ED.GENADULT ---
HPI - General Adult General Date Seen: 01/23/23 Chief complaint: Extremity Pain/Injury, Lower Stated complaint: left leg pain Time Seen by Provider: 01/23/23 13:55 Source: patient Mode of arrival: ambulatory Limitations: no limitations History of Present Illness HPI narrative: Patient is a 77-year-old woman who says she has had problems with her left knee for a while, she had been doing some physical therapy but then was feeling better so she stopped. She had called clinic today to report some pain behind the knee for the past several weeks, wanted to get back into physical therapy because her order . They advised that she should come in to rule out DVT. She does take Eliquis for atrial fibrillation. She has not had any leg swelling or redness. Related Data Home Medications Medication Instructions Recorded Confirmed multivitamin 1 tab PO QAM 06/19/22 01/23/23 Previous Rx's Medication Instructions Recorded amlodipine 2.5 mg tablet 2.5 mg PO QDAY #90 tabs 04/27/22 atenolol 25 mg tablet 25 mg PO QDAY #90 tabs 04/27/22 atorvastatin 40 mg tablet 40 mg PO QDAY #90 tabs 04/27/22 losartan 50 mg tablet 50 mg PO QDAY #90 tabs 04/27/22 apixaban 5 mg tablet 5 mg PO BID #180 tabs 12/07/22 fluocinolone 0.01 % topical 1 applic topical BID #60 mL 12/12/22 solution Allergies Allergy/AdvReac Type Severity Reaction Status Date / Time Penicillins Allergy Mild Rash Verified 12/12/22 15:49 [facility] Medical History (Updated 01/23/23 @ 14:58 by Felicitas Villanueva MD) Eczema ?L30.9 - Dermatitis, unspecified (ICD-10) History of thyroid nodule ?Z86.39 - Personal history of other endocrine, nutritional and metabolic disease (ICD-10) History of rheumatic fever as a child ?Z86.79 - Personal history of other diseases of the circulatory system (ICD-10) History of ovarian cyst (2013) ?Z87.42 - Personal history of other diseases of the female genital tract (ICD-10) Surgical History (Updated 04/20/22 @ 14:26 by Sana Hurtado) History of Ross procedure ?Z95.4 - Presence of other heart-valve replacement (ICD-10) History of dilation and curettage (2004) ?Z98.890 - Other specified postprocedural states (ICD-10) History of bilateral cataract extraction ?Z98.41 - Cataract extraction status, right eye (ICD-10) ?Z98.42 - Cataract extraction status, left eye (ICD-10) History of aortic valve replacement (1999) ?Z95.2 - Presence of prosthetic heart valve (ICD-10) Social History (Updated 04/27/22 @ 09:30 by Sara Rivera MD) Smoking Status: Former smoker How often do you have a drink containing alcohol: 4 or more times a week How many standard drinks containing alcohol do you have on a typical day: 1 or 2 How often do you have six or more drinks on one occasion: Never AUDIT-C Alcohol total score: 4 Non-prescribed substance use: denies use Little interest or pleasure in doing things: not at all Feeling down, depressed, or hopeless: not at all Exam Narrative: Exam Narrative: Vital signs reviewed In general, alert, well-appearing woman. Extremities: Examination of the left knee shows it to be normal in appearance without erythema, edema, effusion. No tenderness to palpation. Range of motion slightly diminished secondary to discomfort. She does not have any calf swelling or redness. No tenderness. Distal CMS normal. Skin: Warm dry well perfused. Const: Vital Signs, click to edit/add: Vital Signs - 24 hr 01/23/23 12:49 01/23/23 14:12 01/23/23 14:37 Temperature 96.8 F L Pulse Rate [Pulse Oximeter] 65 63 Respiratory Rate 16 Blood Pressure [Ri ght Upper Arm] 167/69 H 138/62 Pulse Oximetry 98 97 Oxygen Delivery Me thod Room Air Room Air Course Course ED Course: Lower extremity Doppler of the left leg is negative for DVT. Advised to contact her clinic for PT referral as planned. Tylenol ice as needed. Vital Signs Vital signs: Initial Vital Signs Temperature 96.8 F L 01/23/23 12:49 Temperature Source Temporal Artery Scan 01/23/23 12:49 Pulse Rate 65 01/23/23 12:49 Respiratory Rate 16 01/23/23 12:49 Blood Pressure 167/69 H 01/23/23 12:49 Blood Pressure Mean 101 01/23/23 12:49 Blood Pressure Position Sitting 01/23/23 12:49 Pulse Oximetry 98 01/23/23 12:49 Oxygen Delivery Method Room Air 01/23/23 12:49 Vital Signs Temperature 96.8 F L 01/23/23 12:49 Pulse Rate 65 01/23/23 12:49 Respiratory Rate 16 01/23/23 12:49 Blood Pressure 167/69 H 01/23/23 12:49 Pulse Oximetry 98 01/23/23 12:49 Oxygen Delivery Method Room Air 01/23/23 12:49 Temperature 96.8 F L 01/23/23 12:49 Pulse Rate 63 01/23/23 14:12 Respiratory Rate 16 01/23/23 12:49 Blood Pressure 138/62 01/23/23 14:37 Pulse Oximetry 97 01/23/23 14:12 Oxygen Delivery Method Room Air 01/23/23 14:12 Discharge Plan Discharge Clinical Impression: Knee pain, left Patient Disposition: Home, Self-Care Condition: Stable Instructions: Knee Pain (ED) Additional Instructions: Ice, Tylenol, follow up for PT as you originally planned. Ultrasound does not show evidence of blood clot. Prescriptions: No Action losartan 50 mg tablet 50 mg PO QDAY Qty: 90 3RF atorvastatin 40 mg tablet 40 mg PO QDAY Qty: 90 3RF amlodipine 2.5 mg tablet 2.5 mg PO QDAY Qty: 90 3RF atenolol 25 mg tablet 25 mg PO QDAY Qty: 90 3RF multivitamin Tablet 1 tab PO QAM fluocinolone 0.01 % solution 1 applic topical BID Qty: 60 0RF apixaban 5 mg tablet 5 mg PO BID Qty: 180 1RF Follow Up/Referrals: Sara Rivera MD [Primary Care Provider] - Stand Alone Forms: MyHealth Info Instructions
== END 2023-01-23 15:04 | disposition home or self-care (01) ==
PROVIDERS: Emergency Provider Emergency Medicine; PCP Internal Medicine
DX: M25.562 Pain in left knee (principal)
CPT/HCPCS: 93971; 99283; 99284

== ENCOUNTER 2023-02-02 07:36 | Emergency (ER) | payer MEDICARE, BC, SELFPAY ==
[2023-02-02 07:59] VITALS: BP 183/68; PULSE 73; RESP 18; TEMP 36.1; O2SAT 97
--- NOTE | 2023-02-02 08:07 | ED.NURSE ---
Dr. serrano in room.
--- NOTE | 2023-02-02 08:12 | CRLHL7_ITS ---
For Patients: As a result of the Century Cures Act, medical imaging exams and procedure reports are released immediately into your electronic medical record. You may view this report before your referring provider. If you have questions, please contact your health care provider. Indication: Slipped on apple yesterday afternoon, knee swelling and soreness Comparison: None available. Technique: Standing AP, lateral, and sunrise views of the left knee were obtained Findings: There is no displaced fracture or dislocation. There is moderate tricompartmental degenerative change worse in the medial compartment with loss of joint space and tibial spine spurring. Enthesopathic changes of patella are appreciated. There is moderate suprapatellar joint effusion. Impression: Moderate suprapatellar joint effusion and degenerative change of the medial compartment without acute osseous abnormality. Dictated by Alexsander Rosa MD @ 02/02/2023 8:34:44 AM (Electronically Signed)
--- NOTE | 2023-02-02 08:13 | ED_ITS ---
HPI - General Adult General Time Seen by Provider: 08:13 Date Seen: 02/02/23 Chief complaint: Extremity Pain/Injury, Lower Stated complaint: L knee injury Time Seen by Provider: 02/02/23 08:00 Source: patient Mode of arrival: ambulatory Limitations: no limitations History of Present Illness HPI narrative: Patient is a 69 year white female who is doing some PT for hamstring tightness, has had a valve replacement and is on Eliquis, who presents with a sprain knee that happened yesterday while at a grocery store. She stopped when she stepped on an apple with her right foot and sprained and twisted her left knee and it was okay for couple hours, then it started swelling. It has been swollen over the superior patellar bursa as well as laterally in the knee. She describes pain with flexion extension but she is able to ambulate, she denies prior knee injury. Is on blood thinner as mention. Related Data Home Medications Medication Instructions Recorded Confirmed multivitamin 1 tab PO QAM 06/19/22 01/23/23 Previous Rx's Medication Instructions Recorded amlodipine 2.5 mg tablet 2.5 mg PO QDAY #90 tabs 04/27/22 atenolol 25 mg tablet 25 mg PO QDAY #90 tabs 04/27/22 atorvastatin 40 mg tablet 40 mg PO QDAY #90 tabs 04/27/22 losartan 50 mg tablet 50 mg PO QDAY #90 tabs 04/27/22 apixaban 5 mg tablet 5 mg PO BID #180 tabs 12/07/22 fluocinolone 0.01 % topical 1 applic topical BID #60 mL 12/12/22 solution Allergies Allergy/AdvReac Type Severity Reaction Status Date / Time Penicillins Allergy Mild Rash Verified 12/12/22 15:49 Review of Systems Status of ROS: Reports: 6 or more systems reviewed and unremarkable except as noted in History and below [facility] Medical History Eczema ?L30.9 - Dermatitis, unspecified (ICD-10) History of thyroid nodule ?Z86.39 - Personal history of other endocrine, nutritional and metabolic disease (ICD-10) History of rheumatic fever as a child ?Z86.79 - Personal history of other diseases of the circulatory system (ICD- 10) History of ovarian cyst (2013) ?Z87.42 - Personal history of other diseases of the female genital tract (ICD-10) Surgical History History of Ross procedure ?Z95.4 - Presence of other heart-valve replacement (ICD-10) History of dilation and curettage (2004) ?Z98.890 - Other specified postprocedural states (ICD-10) History of bilateral cataract extraction ?Z98.41 - Cataract extraction status, right eye (ICD-10) ?Z98.42 - Cataract extraction status, left eye (ICD-10) History of aortic valve replacement (1999) ?Z95.2 - Presence of prosthetic heart valve (ICD-10) Social History Smoking Status: Former smoker Do you use any of these nicotine containing products: None Second hand tobacco smoke exposure: No How often do you have a drink containing alcohol: 4 or more times a week How many standard drinks containing alcohol do you have on a typical day: 1 or 2 How often do you have six or more drinks on one occasion: Never AUDIT-C Alcohol total score: 4 Non-prescribed substance use: denies use Little interest or pleasure in doing things: not at all Feeling down, depressed, or hopeless: not at all service: No Exam Narrative: Exam Narrative: Objective: Vital signs show elevated blood pressure No fever Left knee exam shows limited range of motion to 10? less than full extension, flexion about 45?, no medial lateral joint line pain, no anterior drawer test positivity. The patient does have a knee effusion and suprapatellar fluid. Distal CMS is intact Const: Vital Signs, click to edit/add: Vital Signs - 24 hr 02/02/23 07:59 Temperature 96.9 F L Pulse Rate [Right Pulse Oximeter] 73 Respiratory Rate 18 Blood Pressure [Ri ght Upper Arm] 183/68 H Pulse Oximetry 97 Oxygen Delivery Me thod Room Air Course Vital Signs Vital signs: Initial Vital Signs Temperature 96.9 F L 02/02/23 07:59 Temperature Source Temporal Artery Scan 02/02/23 07:59 Pulse Rate 73 02/02/23 07:59 Respiratory Rate 18 02/02/23 07:59 Blood Pressure 183/68 H 02/02/23 07:59 Blood Pressure Mean 106 H 02/02/23 07:59 Blood Pressure Position Sitting 02/02/23 07:59 Pulse Oximetry 97 02/02/23 07:59 Oxygen Delivery Method Room Air 02/02/23 07:59 Vital Signs Temperature 96.9 F L 02/02/23 07:59 Pulse Rate 73 02/02/23 07:59 Respiratory Rate 18 02/02/23 07:59 Blood Pressure 183/68 H 02/02/23 07:59 Pulse Oximetry 97 02/02/23 07:59 Oxygen Delivery Method Room Air 02/02/23 07:59 Temperature 96.9 F L 02/02/23 07:59 Pulse Rate 73 02/02/23 07:59 Respiratory Rate 18 02/02/23 07:59 Blood Pressure 183/68 H 02/02/23 07:59 Pulse Oximetry 97 02/02/23 07:59 Oxygen Delivery Method Room Air 02/02/23 07:59 Medical Decision Making MDM Narrative Medical decision making narrative: [age] year white female with a left knee strain with knee effusion. Patient is on Eliquis, could have some blood in that area, could have a meniscal injury. I think taking an x-ray is appropriate, knee immobilizer, crutches as needed nonweightbearing. Icing on aggressive basis. I think she can take 2 Advil twice a day for 2-3 days. And she should follow up with Orthopedics and will ma ke an appointment for that. Addendum 8:30 a.m.: The patient's x-ray by my read looks unremarkable there is some soft tissue fluid noted, there is probable knee effusion, no obvious fractures, mild degenerative change. Patient will be placed in knee immobilizer and limited weight-bearing icing and follow-up with orthopedics as planned. The patient if she is uncomfortable the knee immobilizer will take this often simply use ice, would recommend also if she feels uncomfortable taking Advil she can just take Tylenol. She did have a cadaveric valve and was on the a Eliquis for her AFib that she has paroxysmally. Discharge Plan Discharge Clinical Impression: Left knee sprain, Effusion of left knee Patient Disposition: Home w/ Parent or Adult Condition: Stable Additional Instructions: Knee immobilizer, limit weight-bearing, use 's crutches at home if needed, orthopedic followup in 3-4 days. Icing aggressively. May take 2 ibuprofen twice a day for a couple of days, continue all your other home medications. Return prior to ortho appointment if problems or concerns. Follow up appointment with ANAYA Connelly on Sunday, February 05, 2023 at 1:[facility]pm [facility] [place]. Activity Level: Light activity Discharge Diet: Regular Prescriptions: No Action losartan 50 mg tablet 50 mg PO QDAY Qty: 90 3RF atorvastatin 40 mg tablet 40 mg PO QDAY Qty: 90 3RF amlodipine 2.5 mg tablet 2.5 mg PO QDAY Qty: 90 3RF atenolol 25 mg tablet 25 mg PO QDAY Qty: 90 3RF multivitamin Tablet 1 tab PO QAM fluocinolone 0.01 % solution 1 applic topical BID Qty: 60 0RF apixaban 5 mg tablet 5 mg PO BID Qty: 180 1RF Follow Up/Referrals: Sara Rivera MD [Primary Care Provider] - Stand Alone Forms: [employer] Info Instructions
== END 2023-02-02 08:47 | disposition home or self-care (01) ==
LOC: ED 08:36
PROVIDERS: Emergency Provider Family Medicine; PCP Internal Medicine
DX: S83.92XA Sprain of unspecified site of left knee, initial encounter (principal); M25.462 Effusion, left knee; W22.8XXA Striking against or struck by other objects, initial encounter; Y92.512 Supermarket, store or market as the place of occurrence of the external cause
CPT/HCPCS: 73562; 99283; 99284

== ENCOUNTER 2023-04-27 07:40 | Outpatient (CLI) | payer MEDICARE, BC, SELFPAY | END 2023-04-27 07:41 | disposition home or self-care (01) | LOC: NFLDREF 14:56 | PROVIDERS: PCP Internal Medicine; Referring Provider Internal Medicine; Visit Provider Internal Medicine | DX: R73.03 Prediabetes (principal); I10 Essential (primary) hypertension; E78.5 Hyperlipidemia, unspecified | CPT/HCPCS: 80048; 80061 ==

== ENCOUNTER 2023-05-28 14:30 | Outpatient (RCR) | payer MEDICARE, BC, SELFPAY ==
--- NOTE | 2023-01-29 18:02 | PT.OPEX ---
PT [place] Outpatient Eval PT [facility] Outpatient Eval Start: 01/29/23 13:55 Freq: Status: Active Protocol: Document 01/29/23 13:56 ZAIDA (Rec: 01/29/23 17:58 ZAIDA [id number]) E-signed By Doug Maria PT Physical Therapy Outpatient Evaluation Insurance Information Insurance Name Medicare B Medical Diagnosis Left knee pain Treating Diagnosis Limited left knee ROM left hamstring weakness left gluteal tightness and weakness Referring MD Rivera Subjective Subjective Pt. noticed recent pain symptoms behind her left knee about 3 weeks ago. She had a doppler US which was negative. She now also notices pain on the lateral side of thigh and knee as well as the posterior knee. She notes that going down steps is difficult. She has knee weakness and stiffness symptoms also. She had therapy for medial knee pain in the past year which got better with exercise. The pain has subsided some over the past week but is still problematic. No knee X-rays have been taken. PMH includes; HTN, heart valve replacement in 1999 and OA. Pain Comments 10 at worst initially Date of Last Physician Visit 01/25/23 Current Work Status Retired Preferred Name Margie Precautions Treatment Precautions/Contraindications none noted Therapy Limitations/Systems Review Not Limited Objective Other/Pertinent Objective Right knee ROM is normal Left knee show mild end range extension and flexion deficits with mild effusion noted Left hamstring tightness with limited SLR compared to right. Left hamstring pain and weakness with resisted testing . negative SLR/slump bilat. left gluteal tightness and hypertonus left ITB tightness/irritation noted Assessment Assessment/Impression Objectively, pt demonstrates; apparent left knee mild OA changes with end range limitations and visible thickness compared to right knee; limited bilat. hip ER mobility (40 deg); negative slump and SLR testing; left gluteal tightness/weakness; moderate weakness 3/5 of left hamstring with pain noted during resisted isometric testing; left gluteal and hamstring tightness compared to right side; and flexed knee gait at heel strike. She would benefit from skilled therapy focusing on left hamstring stretching, strengthening and left gluteal flexibility and strengthening . Primary Functional Limitations walking, steps Plan of Care Rehabilitation Potential Excellent Physical Therapy Goals 1. Pt. will be indep. with HEP for self maintenance in 8 weeks. 2. Pt. will be able to walk without a limp in 8 weeks. 3. Pt. will demonstrate improved hamstring and core strength in 8 weeks. 4. Pt. will be able to go down steps without difficulty in 8 weeks. Coordination/Communication With Referral Source Treatment Plan/Direct Interventions Joint Mobilization,Manual Therapy,Self-Care/Home Management,Therapeutic Exercises Frequency/Duration Weekly to every other week for 6-8 visits Patient Will Be Discharged From Therapy Independent w/HEP, Independently Progressing Evaluation Billing Complexity Low Certification Information Initial Certification Date 01/29/23 Ending Certification Date 04/24/23 Provider Signature Shows Agreement With POC & Medical Necessity Physician Signature & Date Requested Please Sign/Date Here Physician Comment/Change : Physician NPI Number #
--- NOTE | 2023-04-26 14:39 | PT.OPDNX ---
PT [facility] Daily Note PT [facility] Daily Note Start: 01/29/23 13:55 Freq: Status: Active Protocol: Document 04/26/23 10:30 HN (Rec: 04/26/23 11:52 HN [id number]) E-signed By Riddhi Casillas DPT PT OP Daily Progress Note Visit Information Note Type Daily Note,Recert/Progress Note Visit Number 9 Insurance Information Insurance Name Medicare B Medical Diagnosis Left knee pain Treating Diagnosis Limited left knee ROM left hamstring weakness left gluteal tightness and weakness Referring MD Rivera Subjective Subjective Patient reports knee continues to improve, walking and standing more, likes the terminal knee extensions, feels good. Pain intensity and frequency has decreased Aggravating positions: full extension of knee, sitting for prolonged periods of time then moving, getting out of chair, standing for long periods of time Pain Comments 3/10 at worst 0/10 at best Preferred Name Margie Precautions Treatment Precautions/Contraindications Imagin. High-grade tearing/ disruption posterior rib fibers medial meniscus with slight 2 mm medial extrusion peripheral body segment 2. Mild horizontal free edge signal body segment reflective of degenerative fraying, otherwise intact without displacement 3. Sequelae prior sprain injury MCL, otherwise intact 4. Full-thickness chondral loss patellofemoral compartment, largely patellar median ridge and medial patellar facet, and inferior central trochlea 5. No loose bodies; moderate knee effusion 6. Minimal reactive marrow edema tibial attachment posterior root fibers medial meniscus. No evidence of fracture Home Exercise Home Exercise Comments Access Code: [email or web address] URL: [email or web address] Date: 04/26/2023 Prepared by: Riddhi Casillas Exercises - Squat with Chair Touch - 1 x daily - 7 x weekly - 2 sets - 10 reps - Step Up - 1 x daily - 7 x weekly - 2 sets - 10 reps - Lateral Step Down - 1 x daily - 7 x weekly - 2 sets - 10 reps - Standing Terminal Knee Extension with Resistance - 1 x daily - 7 x weekly - 2 sets - 10 reps - Seated Knee Extension Stretch with Chair - 1 x daily - 7 x weekly - 2 sets - 10 reps - Side Stepping with Resistance at Thighs - 1 x daily - 7 x weekly - 2 sets - 10 reps - Heel Raises with Counter Support - 1 x daily - 7 x weekly - 2 sets - 10 reps Objective Other/Pertinent Objective L knee range of motion: 2-120 degrees LE MMT 5/5 bilaterally except left hamstring 4+/5 no reproduction of symptoms with all manual muscle testing 5 time sit to stand: 9 seconds no pain Functional Test Performed & Score LEFS: 35/80= 43.75% Patient Instructed in Risks/Benefits Yes Therapeutic Exercise Therapeutic Exercise Minutes (minutes) 24 Therapeutic Exercise: To Restore To improve L knee strength and Functional Status decrease pain, pt completed the exercises listed below. Assessed pt's L knee ROM, strength, and 5 time sit to stand - Nustep level x4 minutes level 4 - Squat taps to mat 1x10 AROM, 1x10 4#, 2x10 8# - Step up (with slow lower) 2x10 on L - Step down 4 2x10 with focus on keeping all weight in left - Seated hamstring curl 20# 1x10, 25# 1x10 - TKA 2x10 12.5 # Manual Therapy Techniques Manual Therapy Minutes (minutes) 14 Manual Therapy Techniques Provided soft tissue mobilization along left quad/ ITB. Provided tib-fem PA glides grade II with positive response reported. Treatment Minutes Timed Code Treatment Minutes 38 Total Treatment Time 38 Billing Units Manual Therapy Units 1 Therapeutic Exercise Units 2 Assessment/Impression Assessment/Impression Patient is a 77 year old with L knee pain with complications from slip in grocery store during plan of care. Patient demonstrate improvement in left knee range of motion, strength, and decreased pain. Patient continues to demonstrate mild impairments in end range knee motion , strength and pain. These continued impairments impact the patient's transfers, ambulation, stair and curb navigation, prolonged standing and participation in ADLs and IADLs. Patient continues to benefit from skilled physical therapy to improve the impairments and activity limitations listed above. Updated patient's plan of care goals below. Progress slowed by knee injury during plan of care and intermittent reactive edema in left knee. Progressed home exercise program with increased resistance with squats, step ups and step downs. Pt will continue 1x/week decreasing to 1x/every other week as able Plan of Care Physical Therapy Goals Updated Goals 07/24/23 1. Patient will score greater than >50/80 on LEFS to demonstrate decreased pain and disability related to L knee pain. 2. Patient will report </= 2/ 10 at worst in order to demosntrate decreased pain and disability related to knee. 3. Patient will stand > 30 minutes with no increase in pain/stiffness 4. Patient will walk 1 mile or greater with no increase in L knee pain in order to return to prior level of function. Previou goals 1. Pt. will be indep. with HEP for self maintenance in 8 weeks. MET 2. Pt. will be able to walk without a limp in 8 weeks. MET 3. Pt. will demonstrate improved hamstring and core strength in 8 weeks. MET 4. Pt. will be able to go down steps without difficulty in 8 weeks. MET Daily Plan of Care Continue per POC Daily Plan of Care Comments Functional knee strength, terminal knee extension Recertification Information Initial Certification Date 01/29/23 Recertification Start Date 04/26/23 Recertification Due Date 07/24/23 Reasons to Continue Skilled Therapy Patient demonstrates continued improvement in ROM, strength and pain. Plan of care slowed by slip/trip at grocery store during plan of care. Patient continues to be below prior baseline of function. Rehabilitation Potential Good Continued Plan of Care and Interventions Therapeutic activity/ therapeutic exercise/Neuro re- ed/ Manual therapy as needed. Provider Signature Shows Agreement With POC & Medical Necessity Physician Comment/Change Comment or Changes
== END 2023-09-25 23:59 | disposition home or self-care (01) ==
PROVIDERS: PCP Internal Medicine; Visit Provider Internal Medicine
DX: M25.562 Pain in left knee (principal); Z74.09 Other reduced mobility; M62.89 Other specified disorders of muscle; Z51.89 Encounter for other specified aftercare
CPT/HCPCS: 97110; 97140; 97161

== ENCOUNTER 2023-06-27 10:59 | Outpatient (CLI) | payer MEDICARE, BC, SELFPAY ==
--- OUTSIDE RECORDS SUMMARY | 2023-06-27 11:01 | XMS_ITS | Encounter Summary ---
Author Name Unknown Organization [facility] Address [address] [place] [address] Care Team Providers Care Temper Mill Roller Name Role Phone Unavailable Primary Care Provider Unavailabl e Reason for Visit * Reason Comments Follow-up Left Knee Encounter Details Date Type Department Care Team (Late st Contact Info) Description 06/11/2023 1:30 PM DIRECTOR NETWORK DEVELOPMENT Office Visit [facility] [address] [place] [address] Stephanie Arriaza PA-C [address] [place] [id number] Left knee pain, unspecified chronicity (Primary Dx) Social History Tobacco Use Types Packs/Day Years Used Date Smoking Tobacco: Never Smokeless Tobacco: Never Sex and Gender Information Value Date Recorded Sex Assigned at Not on file Gender Identity Not on file Sexual Orientation Not on file documented as of this encounter Patient Instructions * Patient Instructions* Jeannette Fontaine MA - 06/11/2023 1:30 PM DIRECTOR NETWORK DEVELOPMENT Thank you for Choosing [facility] for your health care visit today. Stephanie Arriaza PA-C Physician Management Services Technician Certified Appts: [phone] Medication Requests: Prescriptions are not filled on weekends or on weekdays after 3:00 PM. For all medication refills: Request a refill using MyChart or contact your pharmacy. What is Know Your Cost? Know Your Cost is a service for patients and patient/members to call and receive personalized cost information and estimates across our care group. The phone number is (COST) Sunday - Sunday 8 AM to 5 PM Advanced Imaging Scheduling: To schedule an MRI, Ultrasound, or Image guided injection at [facility] please call [phone]. To schedule an MRI or CT at a [facility] location please call [phone]. [facility] [employer] [address] [place] [address] (Phone) Email: [email or web address] Release of Information: Radiology/Imaging [address] [place] [address] (Phone) Health Information Management [address] [place] [address] (Phone) [employer] CTOR NETWORK DEVELOPMENT documented in this encounter Progress Notes * Stephanie Arriaza PA-C - 06/11/2023 12:00 AM CST NAME: MARGIE VALVERDE CSN: [id number] CLINIC NOTE DATE OF SERVICE: 06/11/2023 : 1945 HISTORY: The patient is a 77-year-old female, who presents to clinic today for followup of her leftknee. She saw Dr. Varghese on April 23, 2023. At that time, she has been using a brace with more physical activities, ice and Tylenol. Overall, feels like her knee is doing quite well. She is not having any discomfort, able to go up and down stairs without issue today. She rates her pain 0/10. She had physical therapy but has finished that at this point in time. PHYSICAL EXAM: On general exam, the patient is alert, awake, in no apparent distress. Her range of motion is 0 to 125 degrees of flexion. She has a trace effusion. No erythema or ecchymosis. Nontender to palpation in medial and lateral joint lines. She is otherwise neurovascularly intact. IMPRESSION: Left knee medial meniscus tear. PLAN: I had a long discussion with Margie regarding her knee. Overall, it seems to have settled downsignificantly for her. On her MRI, it did show possible root involvement of her medial meniscus tear. She also has fairly significant patellofemoral cartilage loss. At this point in time, she will continue to treat this conservatively. If she does notice increased mechanical symptoms, swelling, or pain, we discussed left knee arthroscopy with possible medial meniscectomy versus root repair and she verbalized understanding. She will call us with any additional questions or concerns. The patient's office visit was 20 minutes in length and over half of this was spent in counseling. ENRRIQUE CARPIO/JAK /[id number] CTOR NETWORK DEVELOPMENT documented in this encounter Plan of Treatment Not on file documented as of this encounter Visit Diagnoses Diagnosis Left knee pain, unspecified chronicity- Primary documented in this encounter
--- OUTSIDE RECORDS SUMMARY | 2023-06-27 11:01 | XMS_ITS | Encounter Summary ---
Author Name Unknown Organization [facility] Address [address] [place] [address] Care Team Providers Care Steward/Stewardess Name Role Phone Unavailable Primary Care Provider Unavailabl e Encounter Details Date Type Department Care Team (Latest Contact Info) Description 05/16/2023 Orders Only HIM DEPARTMENT Provider, Sirena, [place] [address] Social History Tobacco Use Types Packs/Day Years Used Date Smoking Tobacco: Never Smokeless Tobacco: Never Sex and Gender Information Value Date Recorded Sex Assigned at Not on file Gender Identity Not on file Sexual Orientation Not on file documented as of this encounter Plan of Treatment Not on file documented as of this encounter Procedures Procedure Name Priority Date/Time Associated Diagnosis Comments MRI-SCAN 05/16/2023 documented in this encounter Results * MRI-SCAN (05/16/2023) Anatomical Region Laterality Modality Other Interface Provider DUMMY/OTHER/AR documented in this encounter Visit Diagnoses Not on filedocumented in this encounter
--- OUTSIDE RECORDS SUMMARY | 2023-06-27 11:01 | XMS_ITS | Encounter Summary ---
Author Name Unknown Organization [facility] Address [address], [place] [address] Care Team Providers Care Senior Project Engineer Name Role Phone Unavailable Primary Care Provider Unavailabl e Reason for Visit * Reason Comments KNEE PAIN LEFT Encounter Details Date Type Department Care Team (Late st Contact Info) Description 04/23/2023 12:00 PM TEST ARCHITECT Office Visit [facility] [address] [place] [phone] Doug Varghese MD [address] [place] [phone] Left knee pain, unspecified chronicity (Primary Dx) Social History Tobacco Use Types Packs/Day Years Used Date Smoking Tobacco: Never Smokeless Tobacco: Never Tobacco Cessation:Counseling Given: Not Answered Sex and Gender Information Value Date Recorded Sex Assigned at Not on file Gender Identity Not on file Sexual Orientation Not on file documented as of this encounter Last Filed Vital Signs Vital Sign Reading Time Taken Comments Blood Pressure - - Pulse - - Temperature - - Respiratory Rate - - Oxygen Saturation - - Inhaled Oxygen Concentration - - Weight 68 kg (150 lb) 04/23/2023 12:02 PM TEST ARCHITECT Height 157.5 cm (5' 2) 04/23/2023 12:02 PM TEST ARCHITECT Body Mass Index 27.44 04/23/2023 12:02 PM TEST ARCHITECT documented in this encounter Progress Notes * Joan Dickey MD - 04/23/2023 12:00 PM CST Chief complaint: left knee pain HPI: Patient is a 77 year old female presenting for evaluation of her left knee. She had onset of pain in January when she caught herself from slipping on an apple with her left leg. Since that time she is had physical therapy and aspiration and 2 steroid injections. She feels that she is gradually improving with these treatments. Her pain is located over the quadriceps and the medial knee. Shedenies anterior knee pain or pain under the kneecap. Past medical history: Notable for Ross procedure in the year 2003 aortic stenosis. Pre diabetes Allergies Allergen Reactions Penicillins Rash Other reaction(s): Rash,abd pain Other reaction(s): Rash,abd pain Other reaction(s): Rash,abd pain Current Outpatient Medications Medication Sig Dispense Refill amLODIPine (NORVASC) 2.5 MG tablet Take 1 Tablet (2.5 mg) by mouth daily. atenolol (TENORMIN) 25 MG tablet Take 1 Tablet (25 mg) by mouth daily. atorvastatin (LIPITOR) 10 MG tablet Take 1 Tablet (10 mg) by mouth. atorvastatin (LIPITOR) 40 MG tablet Take 1 Tablet (40 mg) by mouth daily. cetirizine HCl (ZYRTEC) 10 MG chewable tablet Chew and swallow 1 Tablet (10 mg) by mouth. cyanocobalamin (VITAMIN B12) 100 MCG tablet Take 1 Tablet (100 mcg) by mouth. ELIQUIS 5 MG tablet Take 1 Tablet (5 mg) by mouth two times a day. fluocinolone (SYNALAR) 0.01 % external solution Apply topically two times a day. losartan (COZAAR) 25 MG tablet Take 1 Tablet (25 mg) by mouth. No current facility-administered medications for this visit. Social history: Hobbies include hiking walking and biking. Denies smoking. Occasional alcohol use. Denies illicit drugs. Physical exam: Alert oriented in no acute distress. Appears stated age. Able to walk unassisted with normal gait. Focused examination of the left lower extremity: Trace effusion present. Skin intact. Medial joint line tenderness. Medial Hoffa's fat pad tenderness. Patellar crepitance without pain. Stable to varus and valgus stress. Stable anterior drawer and posterior drawer. Stable Tomasz test. Negative Chavez's. Neurovascularly intact distally. Imaging: X-rays of the left knee obtained on 02/02/2023 were not available for review but report states: Moderate suprapatellar joint effusion and degenerative changes in medial compartment without acute osseous abnormality. MRI of the left knee obtained on 02/08/2023 was reviewed. This demonstrates medial meniscus posterior root tear. There is also degenerative changes of the posterior horn and body of the medial meniscus with degenerative medial meniscus tear. Full-thickness chondral loss of the patellofemoral compartment. Otherwise well-maintained chondral surfaces of the medial and lateral compartments. Lateral meniscus intact. Ligaments intact. Assessment: Degenerative left knee medial meniscus tear Left knee medial meniscus root tear Left knee medial hoffa fat pad irritation Left knee patellofemoral arthritis, asymptomatic Plan: Continue conservative treatment with PT, bracing, ice, and tylenol as patient is improving. Discussed potential surgical interventions including root repair and meniscectomy. She will follow up in June for re-evaluation and further discussion of treatment options at that time. Joan Dickey MD Sports Fellow ARCHITECT documented in this encounter Plan of Treatment Not on file documented as of this encounter Visit Diagnoses Diagnosis Left knee pain, unspecified chronicity- Primary documented in this encounter
--- OUTSIDE RECORDS SUMMARY | 2023-06-27 11:01 | XMS_ITS | Encounter Summary ---
Author Name Unknown Organization [facility] Address [address] [place] [address] Care Team Providers Care Deep Fat Fry Cook Name Role Phone Unavailable Primary Care Provider Unavailabl e Reason for Visit * Procedure/Equipment (Routine) - Incomplete Specialty Diagnoses / Procedures Referred By Contac t Referred To Contact Procedures Foreign Image(S) MR Knee Lt Provider, Foreign Images [address] [place] [address] Referral ID Status Reason Start Date Expiration Date V isits Requested Visits Authorized [id number] Incomplete 04/23/2023 07/22/2024 1 1 Encounter Details Date Type Department Care Team (Late st Contact Info) Description 02/08/2023 Ancillary Procedure [facility] [address] [place] [address] Provider, Foreign Images [address] [place] [address] Social History Tobacco Use Types Packs/Day Years Used Date Smoking Tobacco: Never Assessed Sex and Gender Information Value Date Recorded Sex Assigned at Not on file Gender Identity Not on file Sexual Orientation Not on file documented as of this encounter Plan of Treatment Not on file documented as of this encounter Procedures Procedure Name Priority Date/Time Associated Diagnosis Comments FOREIGN IMAGE(S) MR KNEE LT Routine 02/08/2023 12:00 AM CDT documented in this encounter Results * Foreign Image(S) MR Knee Lt (02/08/2023 12:00 AM CDT) Narrative POCT - 04/23/2023 9:05 AM WATER TAXI BOAT MATE These outside images have been uploaded into PACS. If the results were provided, they will be located in the patient's chart under the Media or Imaging tab. Foreign Images Provider RAD NON-REPORTAB LES POCT documented in this encounter Visit Diagnoses Not on filedocumented in this encounter
--- OUTSIDE RECORDS SUMMARY | 2023-06-27 11:01 | XMS_ITS | Encounter Summary ---
Author Name Unknown Organization [facility] Address [address] [place] [address] Care Team Providers Care Electronic Court Recorder Name Role Phone Unavailable Primary Care Provider Unavailabl e Encounter Details Date Type Department Care Team (Latest Contact Info) Description 05/10/2023 Orders Only HIM DEPARTMENT Provider, Sirena, [place] [address] Social History Tobacco Use Types Packs/Day Years Used Date Smoking Tobacco: Never Smokeless Tobacco: Never Sex and Gender Information Value Date Recorded Sex Assigned at Not on file Gender Identity Not on file Sexual Orientation Not on file documented as of this encounter Plan of Treatment Not on file documented as of this encounter Procedures Procedure Name Priority Date/Time Associated Diagnosis Comments IMAGING 05/10/2023 documented in this encounter Results * IMAGING (05/10/2023) Anatomical Region Laterality Modality Other Interface Provider DUMMY/OTHER/AR documented in this encounter Visit Diagnoses Not on filedocumented in this encounter
--- OUTSIDE RECORDS SUMMARY | 2023-06-27 11:01 | XMS_ITS | Clinical Summary ---
Author Name Unknown Organization [facility] Address [address] [place] [address] Care Team Providers Care Physical Sciences Professor Name Role Phone Unavailable Primary Care Provider Unavailabl e Source Comments You are receiving this document as you are listed as the primary care provider,follow-up provider, or the patient has been referred to you for consultation.This is in compliance with the Medicare and[facility] EHR Incentive Program,which states Providers who transition their patient to another setting of careor provider of care or refers their patient to another provider of care shouldprovide summary care record for each transition of care or referral. [employer] Allergies Active Allergy Reactions Criticality Noted Date Comments Penicillins Rash Low 12/11/2015 Other reaction(s): Rash,abd pain Other reaction(s): Rash,abd pain Other reaction(s): Rash,abd pain Medications Medication Sig Dispensed Refills Start Date End Date Status amLODIPine (NORVASC) 2.5 MG tablet Take 1 Tablet (2.5 mg) by mouth daily. 03/14/2023 Active ELIQUIS 5 MG tablet Take 1 Tablet (5 mg) by mouth two times a day. 03/14/2023 Active atenolol (TENORMIN) 25 MG tablet Take 1 Tablet (25 mg) by mouth daily. 03/14/2023 Active atorvastatin (LIPITOR) 10 MG tablet Take 1 Tablet (10 mg) by mouth. Active atorvastatin (LIPITOR) 40 MG tablet Take 1 Tablet (40 mg) by mouth daily. 03/14/2023 Active cetirizine HCl (ZYRTEC) 10 MG chewable tablet Chew and swallow 1 Tablet (10 mg) by mouth. Active cyanocobalamin (VITAMIN B12) 100 MCG tablet Take 1 Tablet (100 mcg) by mouth. Active fluocinolone (SYNALAR) 0.01 % external solution Apply topically two times a day. 12/12/2022 Active losartan (COZAAR) 25 MG tablet Take 1 Tablet (25 mg) by mouth. Active Encounters Date Type Department Care Team Description 06/11/2023 1:30 PM OPEN CUT EXAMINER Office Visit [address] [address] Stephanie Arriaza PA-C Left knee pain, unspecified chronicity (Primary Dx) 05/16/2023 Orders Only HIM DEPARTMENT ProviderSirena MD 05/10/2023 Orders Only HIM DEPARTMENT Provider, MD Sirena 04/23/2023 12:00 PM OPEN CUT EXAMINER Office Visit [address] [address] Doug Varghese MD Left knee pain, unspecified chronicity (Primary Dx) from Last 3 Months Social History Tobacco Use Types Packs/Day Years Used Date Smoking Tobacco: Never Smokeless Tobacco: Never Tobacco Cessation:Counseling Given: Not Answered Sex and Gender Information Value Date Recorded Sex Assigned at Not on file Gender Identity Not on file Sexual Orientation Not on file Last Filed Vital Signs Vital Sign Reading Time Taken Comments Blood Pressure - - Pulse - - Temperature - - Respiratory Rate - - Oxygen Saturation - - Inhaled Oxygen Concentration - - Weight 68 kg (150 lb) 04/23/2023 12:02 PM OPEN CUT EXAMINER Height 157.5 cm (5' 2) 04/23/2023 12:02 PM OPEN CUT EXAMINER Body Mass Index 27.44 04/23/2023 12:02 PM OPEN CUT EXAMINER Plan of Treatment Health Maintenance Due Date Last Done Comments Hep C Screening (Preventive Services) 1945 Medicare Annual Wellness Visit 1945 Dexa 2009 DTaP/Tdap/Td (2 - Tdap) 05/26/2020 05/26/2010 HepA Aged Out 02/11/2003 No longer eligi ble based on patient's age to complete this topic Pneumococcal 65+ Yrs Completed 05/14/2014, 10/14/19 10 Zoster/Shingles Completed 11/03/2018, 10/2017, 01/18/2011 Influenza Completed 01/03/2023, 08/2021, 01/21/2021, Additional history exists COVID-19 Vaccine Completed 02/07/2023, , 02/07/2022, Additional history exists HepB Aged Out No longer eligi ble based on patient's age to complete this topic Hib Aged Out No longer eligi ble based on patient's age to complete this topic IPV (Polio) Aged Out No longer eligi ble based on patient's age to complete this topic MCV4 Aged Out No longer eligi ble based on patient's age to complete this topic Procedures Procedure Name Priority Date/Time Associated Diagnosis Comments MRI-SCAN 05/16/2023 IMAGING 05/10/2023 from Last 3 Months Results * MRI-SCAN (05/16/2023) Anatomical Region Laterality Modality Other Interface Provider DUMMY/OTHER/AR * IMAGING (05/10/2023) Anatomical Region Laterality Modality Other Interface Provider DUMMY/OTHER/AR from Last 3 Months
--- OUTSIDE RECORDS SUMMARY | 2023-06-27 11:02 | XMS_ITS | Clinical Summary ---
Author Name Unknown Organization [employer] [facility] Address [place], [place] [address] Care Team Providers Care Marketing Content Specialist Name Role Phone Pcp, No Primary Care Provider Unavailabl e Allergies Active Allergy Reactions Criticality Noted Date Comments Penicillins Rash Low 12/11/2015 Other reaction(s): Rash,abd pain Other reaction(s): Rash,abd pain Medications Medication Sig Dispensed Refills Start Date End Date Status amLODIPine (NORVASC) 2.5 mg tablet 0 08/19/2020 Active Eliquis 5 mg tablet 0 08/17/2020 Activ e atenoloL (TENORMIN) 25 mg tablet 0 08/06/2020 Active atorvastatin (LIPITOR) 40 mg tablet 0 10/17/2020 Active clindamycin (CLEOCIN) 300 mg capsule 0 08/19/2020 Active losartan (COZAAR) 50 mg tablet 0 10/17/2020 Active multivit with calcium,iron,min (MULTIPLE VITAMIN, WOMENS ORAL) Take 1 Tablet by mouth. 0 Active Cetirizine HCl (ZYRTEC) 10 mg chewable tablet Chew 10 mg by mouth. 0 Active Active Problems No known active problems Social History Tobacco Use Types Packs/Day Years Used Date Smoking Tobacco: Never Smokeless Tobacco: Never Alcohol Use Standard Drinks/Week Comments Yes 0 (1 standard drink = 0.6 oz pur e alcohol) Social Connections Answer Date Recorded Frequency of Communication with Friends and Fami ly Not on file 10/30/2022 Financial Resource Strain Answer Date R ecorded Difficulty of Paying Living Expenses 3 10/28/2021 Difficulty of Paying Living Expenses Not on file 10/28/2021 Food Insecurity Answer Date Recorded Worried About Running Out of Food in the Last Ye ar 1 10/28/2021 Transportation Needs Answer Date Record ed Lack of Transportation (Medical) 1 10/28/2021 Housing Stability Answer Date Recorded Unable to Pay for Housing in the Last Year 1 10/28/2021 Sex and Gender Information Value Date Recorded Sex Assigned at Not on file Gender Identity Not on file Sexual Orientation Not on file Obstetrics History Last Filed [...] (shingles) series for age 50+ (1 of 2) 1994 DEXA/DXA scan for age 65+ 2009 Medicare Wellness for age 65+ 2009 Pneumococcal series for age 65+ (1 of 1 - PCV) 2009 COVID-19 vaccine series (2022-24 season) 2023 09/23/2021, 02/21/2021 Influenza for age 65+ 01/12/2023 Care Teams Marketing Content Specialist Relationship Specialty Start Date End Date Pcp, No . PCP - General 10/12/20
--- OUTSIDE RECORDS SUMMARY | 2023-06-27 11:02 | XMS_ITS | Encounter Summary ---
Author Name Unknown Organization [facility] Address [address] [place] [address] Care Team Providers Care Auto Tire Recapper Name Role Phone Unavailable Primary Care Provider Unavailabl e Reason for Visit * Reason Onset Date Comments Dental form to be filled out by local PCP 2022 Encounter Details Date Type Department Care Team (Latest Contact Info) Description 02/26/2023 Clinical Communication Department of Cardiovascular Medicine in [place], [place] [address] [place] [address] Melody Jolly M.D. [address] [place] [address] Dental form to be filled out by local PCP Social History Tobacco Use Types Packs/Day Years Used Date Smoking Tobacco: Never Smokeless Tobacco: Never Nutrition Answer Date Recorded Nutrition: EVOO Fat Source Unknown 12/24 Nutrition: Servings of Fruits/Vegetables per Day Not on file 12/24/2020 Dental Answer Date Recorded Dental: Regular Dentist Unknown 12/25/19 21 Sex and Gender Information Value Date Recorded Sex Assigned at Female 06/18/2023 10:49 AM SHRINK PIT OPERATOR Gender Identity Female 06/18/2023 10:49 AM SHRINK PIT OPERATOR Sexual Orientation Straight 06/18/2023 10 :49 AM SHRINK PIT OPERATOR documented as of this encounter Plan of Treatment Not on file documented as of this encounter Visit Diagnoses Not on filedocumented in this encounter
--- OUTSIDE RECORDS SUMMARY | 2023-06-27 11:02 | XMS_ITS | Encounter Summary ---
Author Name Unknown Organization [facility] Address [address] [place] [id number] Care Team Providers Care Superintendent Pipelines Name Role Phone Unavailable Primary Care Provider Unavailabl e Reason for Visit * Appointment Request (Routine) - Closed Specialty Diagnoses / Procedures Referred By Gerardo t Referred To Contact Cardiovascular Disease Referral ID Status Reason Start Date Expiration Date Visits Re quested Visits Authorized [id number] Closed 03/14/2023 03/13/2024 1 1 Encounter Details Date Type Department Care Team (Late st Contact Info) Description 06/25/2023 4:00 PM COMPUGRAPH OPERATOR Office Visit Department of Cardiovascular Medicine in [place], [place] [address] [place] [phone] Melody Jolly M.D. [address] [place] [phone] Social History Tobacco Use Types Packs/Day Years Used Date Smoking Tobacco: Never Smokeless Tobacco: Never Tobacco Cessation:Counseling Given: Not Answered Alcohol Use Standard Drinks/Week Comments Yes 4 (1 standard drink = 0.6 oz pur e alcohol) [facility] Utilities Answer Date Recorded In the past 12 months has e medidametrics, gas, oil, or water company threatened to shut off services in your home? No 06/18/2023 Exercise Vital Sign Answer Date Recorde d On average, how many days pe r week do you engage in moderate to strenuous exercise (like a brisk walk)? 3 days 06/18/2023 On average, how many minutes do you engage in exercise at this level? 50 min 06/18/2023 Hunger Vital Sign Answer Date Recorded Within the past 12 months, y ou worried that your food would run out before you got the money to buy more. Never true 06/18/19 24 Within the past 12 months, t he food you bought just didn't last and you didn't have money to get more. Never true 06/18/2023 PRAPARE - Transportation Answer Date Re corded In the past 12 months, has l ack of transportation kept you from medical appointments or from getting medications? No 09/2023 In the past 12 months, has l ack of transportation kept you from meetings, work, or from getting things needed for daily living? No 06/18/2023 Nutrition Answer Date Recorded Nutrition: EVOO Fat Source Unknown 06/18 On average, how many serving s of fruits and vegetables do you eat per day (serving size is equal to 1 cup or approximately the size of a tennis ball)? 3-5 06/18/2023 Dental Answer Date Recorded Dental: Regular Dentist Yes 06/18/19 Employment Answer Date Recorded Employment status Retired 06/18/2023 Housing Stability Answer Date Recorded What is your living situation today? I have a [facility] place to live 06/18/2023 Sex and Gender Information Value Date Recorded Sex Assigned at Female 06/18/2023 10:49 AM COMPUGRAPH OPERATOR Gender Identity Female 06/18/2023 10:49 AM COMPUGRAPH OPERATOR Sexual Orientation Straight 06/18/2023 10 :49 AM COMPUGRAPH OPERATOR documented as of this encounter Last Filed Vital Signs Vital Sign Reading Time Taken Comments Blood Pressure 123/57 06/25/2023 3:56 PM COMPUGRAPH OPERATOR Pulse 72 06/25/2023 3:56 PM COMPUGRAPH OPERATOR Temperature - - Respiratory Rate - - Oxygen Saturation - - Inhaled Oxygen Concentration - - Weight - - Height - - Body Mass Index - - documented in this encounter Plan of Treatment Not on file documented as of this encounter Visit Diagnoses Not on filedocumented in this encounter
--- OUTSIDE RECORDS SUMMARY | 2023-06-27 11:02 | XMS_ITS ---
Author Name Unknown Organization [facility] Address [address] [place] [address] Care Team Providers Care Lithographic Plate Maker Name Role Phone Unavailable Unavailable Unavailable Surgery Details Not on file Complications Check Surgery Details section. Procedure Estimated Blood Loss Check Surgery Details section. Procedure Findings Check Surgery Details section. Procedure Specimens Taken Check Surgery Details section.
--- OUTSIDE RECORDS SUMMARY | 2023-06-27 11:02 | XMS_ITS | Clinical Summary ---
Author Name Unknown Organization 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. For routine questions regarding patient records, call [phone] during business hours, M-F 8:00 AM - 5:00 PM Central Time. Record requests for emergency care only can be directed to [phone] at any time.[facility] Allergies Active Allergy Reactions Criticality Noted Date Comments Animal Dander Other (see comments) 03/01/2017 Horses and guinea pig - sneezing and watery eyes Penicillins Rash Low 12/11/2015 Other reaction(s): Rash,abd pain Medications Medication Sig Dispensed Refills Start Date End Date Status apixaban (Eliquis) 5 mg tablet 2 (two) times a day. 0 10/18/2015 Act jerry atorvastatin (LIPITOR) 40 mg tablet atorvastatin 40 mg tablet 0 07/16/2020 Active cetirizine (ZyrTEC) 10 mg tablet Take 1 tablet by mouth. 0 Active fluticasone propionate (FLONASE) 50 mcg/actuation nasal spray Administer 2 sprays into nostril(s). 0 03/11/2018 Active losartan (COZAAR) 50 mg tablet losartan 50 mg tablet 0 07/12/2020 A ctive amLODIPine (NORVASC) 2.5 mg tablet amlodipine 2.5 mg tablet 0 10/20/2015 Active atenoloL (TENORMIN) 25 mg tablet atenolol 25 mg tablet 0 10/17/2015 A ctive multivit with minerals/lutein (MULTIVITAMIN 50 PLUS ORAL) Take 1 tablet by mouth. 0 Active rosuvastatin (CRESTOR) 20 mg tablet Take 1 tablet by mouth daily. 0 05/01/2023 Active Encounters Date Type Department Care Team Description 06/25/2023 4:00 PM TEST CONDUCTOR Office Visit Department of Cardiovascular Medicine in [address] [address] Melody Jolly M.D. 06/25/2023 11:53 AM TEST CONDUCTOR - 06/25/2023 11:59 PM TEST CONDUCTOR Hospital Encounter Department of Cardiovascular Diseases in [address] [address] Melody Jolly M.D. Regurgitation Aortic Congenital (HCC); Replacement Heart Valve Tissue Discharge Disposition: Home or Self Care 06/25/2023 10:33 AM TEST CONDUCTOR - 06/25/2023 11:52 AM TEST CONDUCTOR Hospital Encounter Department of Radiology, [facility] in [address] [address] Meldoy Jolly M.D. Regurgitation Aortic Congenital (HCC); Replacement Heart Valve Tissue Discharge Disposition: Home or Self Care 06/25/2023 9:36 AM TEST CONDUCTOR - 06/25/2023 10:32 AM TEST CONDUCTOR Hospital Encounter Department of Laboratory Medicine and Pathology, [facility] in [address] [address] Melody Jolly M.D. Regurgitation Aortic Congenital (HCC); Replacement Heart Valve Tissue Discharge Disposition: Home or Self Care 06/22/2023 8:15 AM [facility] Clinical Communication Virtual Review in [address] [address] Pre-visit Intake 04/02/2023 Clinical Communication Department of Cardiovascular Medicine in [address] [address] Melody Jolly M.D. Pre-visit Testing Orders from Last 3 Months Family History Medical History Relation Name Comments Coronary artery disease Father Drake Matthews Noye s Stroke Maternal Grandmother Sandhya Haagenson Breast cancer Mother Zehra Keily Hypertension Mother Zehra Keily Stroke Paternal Grandfather Lance Keily Relation Name Status Comments Father Drake Budd Keily Maternal Grandmother Sandhya Saldana Mother Zehra Keily Paternal Grandfather Lance Michaud Social History Tobacco Use Types Packs/Day Years Used Date Smoking Tobacco: Never Smokeless Tobacco: Never Tobacco Cessation:Counseling Given: Not Answered Alcohol Use Standard Drinks/Week Comments Yes 4 (1 standard drink = 0.6 oz pur e alcohol) [facility] Utilities Answer Date Recorded In the past 12 months has th e electric, gas, oil, or water company threatened to [...] money to buy more. Never true 06/18/19 Within the past 12 months, t he [...] your living situation today? [facility] 06/18/2023 Sex and Gender Information Value Date Recorded Sex Assigned at Female 06/18/2023 10:49 AM TEST CONDUCTOR Gender Identity Female 06/18/2023 10:49 AM TEST CONDUCTOR Sexual Orientation Straight 06/18/2023 10 :49 AM TEST CONDUCTOR Last Filed Vital Signs Vital Sign Reading Time Taken Comments Blood Pressure 123/57 06/25/2023 3:56 PM TEST CONDUCTOR Pulse 72 06/25/2023 3:56 PM TEST CONDUCTOR Temperature - - Respiratory Rate 17 08/24/2021 10:25 AM CDT Oxygen Saturation 95% 08/24/2021 10:29 AM CDT Inhaled Oxygen Concentration - - Weight - - Height - - Body Mass Index - - Plan of Treatment Health Maintenance Due Date Last Done Comments Hepatitis C Screening 1945 Depression Screening (Annual PHQ-2) 05/14/2023 Creatinine Level (Kidney Fun ction Test) 06/25/2024 06/25/2023, 02/16/2021 Potassium Level 06/25/2024 06/25/2023, 02/16/2021 Sodium Level 06/25/2024 06/25/2023, 02/16/2021 DTaP,Tdap,and Td Vaccines (3 - Td or Tdap) 05/03/2030 05/03/2020, 05/26/2010 Pneumococcal vaccine (65+ years) Completed 05/14/19 15, 10/13/2009 Zoster Vaccines Completed 11/03/2018, 0810/2017, 01/18/2011 Influenza Vaccine Completed 01/03/2023, , 01/15/2022, Additional history exists COVID-19 Vaccine Completed 02/07/2023, , 02/07/2022, Additional history exists Fall Risk Screen (Annual) Completed 06/25/2023 Procedures Procedure Name Priority Date/Time Associated Diagnosis Comments (TTE) 2D ECHO DOPPLER COLOR Routine 06/25/2023 1:59 PM TEST CONDUCTOR Regurgitation 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 DX CHEST AP OR PA AND LATERAL 2 VIEWS RAD - Routine (most inpatients and all outpatients) 06/25/2023 10:46 AM TEST CONDUCTOR Regurgitation 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 ECG Routine 06/25/2023 10:23 AM TEST CONDUCTOR Regurgitation 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 NT-PRO B-TYPE NATRIURETIC PEPTIDE (BNP), S Routine 06/25/2023 10:04 AM TEST CONDUCTOR Regurgitation 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 LIPID PANEL, S Routine 06/25/2023 10:04 AM TEST CONDUCTOR Regurgitation 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 CBC WITH DIFFERENTIAL, B Routine 06/25/2023 10:04 AM TEST CONDUCTOR Regurgitation 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 PROTHROMBIN TIME (PT), P Routine 06/25/2023 10:04 AM TEST CONDUCTOR Regurgitation 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 SODIUM, S/P Routine 06/25/2023 10:04 AM TEST CONDUCTOR Regurgitation 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 POTASSIUM, S/P Routine 06/25/2023 10:04 AM TEST CONDUCTOR Regurgitation 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 GLUCOSE, FASTING, S/P Routine 06/25/2023 10:04 AM TEST CONDUCTOR Regurgitation 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 CREATININE WITH EGFR, S/P Routine 06/25/2023 10:04 AM TEST CONDUCTOR Regurgitation 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 ALBUMIN, S/P Routine 06/25/2023 10:04 AM TEST CONDUCTOR Regurgitation 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 from Last 3 Months Results * (TTE) 2D ECHO DOPPLER COLOR (06/25/2023 1:59 PM TEST CONDUCTOR) Ejection Fraction 56 MC CV EIMS Mid-Ascending Aorta 43 MC CV EIMS LV Mass Index 104 MC CV EIMS LV End-Diastolic Diameter 56 MC CV EIMS LV End-Systolic Diameter 39 MC CV EIMS MV E Velocity 0.7 MC CV EIMS MV A Velocity 0.6 MC CV EIMS MV E/A 1.17 MC CV EIMS MV e' Velocity Medial 0.09 MC CV EIMS MV e' Velocity Lateral 0.1 MC CV EIMS MV E/e' Medial 7.8 MC CV EIMS MV E/e' Lateral 7 MC CV EIMS Left ventricular stroke volume index 53 MC CV EIMS Cardiac Output 5.9 MC CV EIMS Cardiac Index 3.47 MC CV EIMS LV Interventricular Septal Wall Thickness 9 MC CV EIMS LV Posterior Wall Thickness 8 MC CV EIMS LV Relative Wall Thickness 29 MC CV EIMS Tricuspid Annular S? 0.12 MC CV EIMS TR Vmax 2.33 MC CV EIMS RA Pressure 5 MC CV EIMS RV Systolic Pressure 27 MC CV EIMS Estimated diastolic pulmonary artery pressure 8 MC CV EIMS AV mean gradient 4 MC CV EIMS Aortic valve area 3.23 MC CV EIMS Aortic Valve Area Index 1.9 MC CV EIMS Aortic Valve Dimensionless Index 1.03 MC CV EIMS LA Volume Index 45 MC CV EIMS Aortic Valve Systolic Peak Velocity 1.3 MC CV EIMS Anatomical Region Laterality Modality Echocardiography 06/25/2023 12:3 5 PM TEST CONDUCTOR Impressions 06/25/2023 2:43 PM TEST CONDUCTOR LEFT VENTRICLE:Mildly enlarged left ventricular chamber size. Abnormal left ventricular geometry with ??eccentric left ventricular hypertrophy. Calculated 2-D linear left ventricular ejection fraction 56%. Abnormal ventricular septal motion due to conduction without other regional wall motion abnormalities. Indeterminate left ventricular filling pressure. RIGHT VENTRICLE:Normal right ventricular chamber size. Normal right ventricular systolic function. Estimated right ventricular systolic pressure 27 mmHg (right atrial pressure of 5 mmHg). ATRIA:Severely enlarged left atrial size. Left atrial volume index 45 ml/m2. Normal right atrial size. 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 Aortic valve systolic mean Doppler gradient 4 mmHg. Moderate aortic valve regurgitation. Mildly thickened mitral valve. Mild mitral valve regurgitation. Normal pulmonary valve homograft. Status post ??mm pulmonary valve homograft (elsewhere, 2000). Pulmonary valve prosthesis systolic mean Doppler gradient 5 mmHg. Trivial pulmonary valve prosthetic regurgitation. Normal tricuspid valve. Trivial tricuspid valve regurgitation. OTHER ECHO FINDINGS:Normal inferior vena cava size with normal inspiratory collapse (>50%). Mildly enlarged mid ascending aorta diameter of 43 mm. Upper limit of normal of the mid ascending aorta, for age, sex and BSA is 39 mm. No abdominal aortic aneurysm. Early diastolic flow reversals in the abdominal aorta. No atrial level shunt by color flow imaging. No intracardiac mass or thrombus, but the left atrial appendage cannot be visualized adequately with transthoracic echo to exclude thrombus in this location. No ??pericardial effusion. Prominent anterior epicardial fat layer. Compared to the report of 08/24/2021 no significant change has occurred. Side by side comparison of images performed. For the complete report, see the Order-Level Documents. Narrative 06/25/2023 2:43 PM TEST CONDUCTOR For the complete report, see the Order-Level Documents. Hemodynamics Heart Rate: 70 BPM Blood Pressure: 122 / 61 mmHg ECG: Sinus rhythm with ectopics, Left bundle branch block Final Impressions 1. 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 ??Aortic valve systolic mean Doppler gradient 4 mm Hg. 2. Moderate aortic valve regurgitation. ?? Assessment of severity was technically challenging. 3. Early diastolic flow reversals in the abdominal aorta. 4. Mildly enlarged left ventricular chamber size, calculated 2-D linear ejection fraction 56%; abnormal ventricular septal motion due to conduction. 5. Abnormal left ventricular geometry with ??eccentric left ventricular hypertrophy, indeterminate filling pressure. 6. Normal right ventricular chamber size, normal systolic function, estimated right ventricular systolic pressure 27 mmHg (right atrial pressure of 5 mmHg). 7. Mildly enlarged mid ascending aorta diameter of 43 mm, upper limit of normal for age, sex and BSA is 39 mm. 8. In the absence of a change in clinical status, consensus guidelines recommend a repeat transthoracic echocardiogram in 1-2 years to reevaluate the aortic regurgitation. 9. Compared to the report of 08/24/2021 no significant change has occurred. Side by side comparison of images performed. Procedure Note Camille Allen M.D. - 06/25/2023 For the complete report, see the Order-Level Documents. Hemodynamics Heart Rate: 70 BPM Blood Pressure: 122 / 61 mmHg ECG: Sinus rhythm with ectopics, Left bundle branch block Final Impressions 1. Status post Ross procedure and pulmonary valve homograft (elsewhere,1999). Aortic valve systolic mean Doppler gradient 4 mm Hg. 2. Moderate aortic valve regurgitation. Assessment of severity wastechnically challenging. 3. Early diastolic flow reversals in the abdominal aorta. 4. Mildly enlarged left ventricular chamber size, calculated 2-D linearejection fraction 56%; abnormal ventricular septal motion due toconduction. 5. Abnormal left ventricular geometry with eccentric left ventricularhypertrophy, indeterminate filling pressure. 6. Normal right ventricular chamber size, normal systolic function,estimated right ventricular systolic pressure 27 mmHg (right atrialpressure of 5 mmHg). 7. Mildly enlarged mid ascending aorta diameter of 43 mm, upper limit ofnormal for age, sex and BSA is 39 mm. 8. In the absence of a change in clinical status, consensus guidelinesrecommend a repeat transthoracic echocardiogram in 1-2 years to reevaluatethe aortic regurgitation. 9. Compared to the report of 08/24/2021 no significant change hasoccurred. Side by side comparison of images performed. Findings LEFT VENTRICLE:Mildly enlarged left ventricular chamber size. Abnormalleft ventricular geometry with eccentric left ventricular hypertrophy.Calculated 2-D linear left ventricular ejection fraction 56%. Abnormalventricular septal motion due to conduction without other regional wallmotion abnormalities. Indeterminate left ventricular filling pressure. RIGHT VENTRICLE:Normal right ventricular chamber size. Normal rightventricular systolic function. Estimated right ventricular systolicpressure 27 mmHg (right atrial pressure of 5 mmHg). ATRIA:Severely enlarged left atrial size. Left atrial volume index 45ml/m2. Normal right atrial size. CARDIAC VALVES:Status post Ross procedure and pulmonary valve homograft(elsewhere, 2000). Aortic valve systolic mean Doppler gradient 4 mmHg.Moderate aortic valve regurgitation. Mildly thickened mitral valve. Mildmitral valve regurgitation. Normal pulmonary valve homograft. Status postmm pulmonary valve homograft (elsewhere, 2000). Pulmonary valve prosthesissystolic mean Doppler gradient 5 mmHg. Trivial pulmonary valve prostheticregurgitation. Normal tricuspid valve. Trivial tricuspid valveregurgitation. OTHER ECHO FINDINGS:Normal inferior vena cava size with normal inspiratorycollapse (>50%). Mildly enlarged mid ascending aorta diameter of 43 mm.Upper limit of normal of the mid ascending aorta, for age, sex and BSA is39 mm. No abdominal aortic aneurysm. Early diastolic flow reversals in theabdominal aorta. No atrial level shunt by color flow imaging. Nointracardiac mass or thrombus, but the left atrial appendage cannot bevisualized adequately with transthoracic echo to exclude thrombus in thislocation. No pericardial effusion. Prominent anterior epicardial fatlayer. Compared to the report of 08/24/2021 no significant change hasoccurred. Side by side comparison of images performed. For the complete report, see the Order-Level Documents. Melody Jolly M.D. CV ECHO PROCEDURES * DX Chest AP or PA and Lateral 2 Views (06/25/2023 10:46 AM TEST CONDUCTOR) Anatomical Region Laterality Modality Chest, Thoracic RST LOS, Tho racic ARZ LOS, Thoracic FLA LOS N/A Digital Radiography Impressions 06/25/2023 11:33 AM TEST CONDUCTOR No significant change since 02/16/2021. Sternotomy. Abandoned epicardial pacing wires. Enlarged cardiac silhouette. Degenerative changes of the spine. Chest otherwise negative. Narrative 06/25/2023 11:33 AM TEST CONDUCTOR EXAM: ??DX CHEST AP OR PA AND LATERAL 2 VIEWS Procedure Note Carlos Colón M.D. - 06/25/2023 EXAM: DX CHEST AP OR PA AND LATERAL 2 VIEWS IMPRESSION: No significant change since 02/16/2021. Sternotomy. Abandoned epicardialpacing wires. Enlarged cardiac silhouette. Degenerative changes of thespine. Chest otherwise negative. Melody Jolly M.D. IMG DIAGNOSTIC IMAGI NG PROCEDURES * ECG 12 Lead (06/25/2023 10:23 AM TEST CONDUCTOR) Ventricular Rate ECG/Min 69 BPM MUSE MN Interval 194 ms MUSE QRSD Interval 128 ms MUSE QT Interval 450 ms MUSE QTC Interval 482 ms MUSE P Victor 79 degrees MUSE R Victor 17 degrees MUSE T Wave Victor 97 degrees MUSE 06/25/2023 10:2 3 AM TEST CONDUCTOR 06/25/2023 10:27 AM TEST CONDUCTOR Impressions MUSE - 06/25/2023 10:27 AM TEST CONDUCTOR Sinus rhythm with sinus arrhythmia Left bundle branch block with secondary ST-T abnormalities When compared with ECG of 16-FEB-2021 11:45, No significant change in data has occurred Reviewed by MIGDALIA Almaraz Narrative Procedure Note Matt Robles Jr., M.D. - 06/25/2023 IMPRESSION: Sinus rhythm with sinus arrhythmia Left bundle branch block with secondary ST-T abnormalities When compared with ECG of 16-FEB-2021 11:45, No significant change in data has occurred Reviewed by MIGDALIA Almaraz Melody Jolly M.D. ECG ORDERABLES MUSE NA * (ABNORMAL) Lipid Panel (06/25/2023 10:04 AM TEST CONDUCTOR) Triglycerides 109 mg/dL 06/25/2023 11:50 AM TEST CONDUCTOR DTL Comment: ----REFERENCE VALUE---- Normal: <150 mg/dL Borderline High: 150-199 mg/dL High: 200-499 mg/dL Very High: > or =500 mg/dL Cholesterol, Total 133 mg/dL 2023 11:50 AM TEST CONDUCTOR DTL Comment: ----REFERENCE VALUE---- Desirable: < 200 mg/dL Borderline High: 200 - 239 mg/dL High: > or = 240 mg/dL Cholesterol, LDL, Calculated 64 mg/dL 06/25/2023 11:50 AM TEST CONDUCTOR DTL Comment: ----REFERENCE VALUE---- Desirable: <100 mg/dL Above Desirable: 100-129 mg/dL Borderline High: 130-159 mg/dL High: 160-189 mg/dL Very High: >=190 mg/dL ----ADDITIONAL INFORMATION---- LDL cholesterol calculated using the Copeland/NIH equation. Cholesterol, HDL, S 49(L) >=50 mg/dL 06/25/2023 11:50 AM TEST CONDUCTOR DTL Cholesterol, Non-HDL, Calculated 84 mg/dL 06/25/2023 11:50 AM TEST CONDUCTOR DTL Comment: ----REFERENCE VALUE---- Desirable: <130 mg/dL Above Desirable: 130-159 mg/dL Borderline High: 160-189 mg/dL High: 190-219 mg/dL Very High: > or =220 mg/dL Fasting (8 HR or more) Yes 06/25/2023 10:47 AM TEST CONDUCTOR DTL Blood (Blood, Venous) 06/25/2023 10:04 AM TEST CONDUCTOR 06/25/2023 10:47 AM TEST CONDUCTOR Melody Jolly M.D. LAB BLOOD ADD-ON Performing Organization Address City/[facility]/ZIP Co de Phone Number [facility] [address] [place], [place] [id number] [place] [id number] * NT-Pro B-Type Natriuretic Peptide (BNP) (06/25/2023 10:04 AM TEST CONDUCTOR) NT-Pro BNP 401 <=540 pg/mL 06/25/2023 11:50 AM TEST CONDUCTOR DTL Comment: NT-proBNP values less than 300 pg/mL have a 99% negative predictive value for excluding acute congestive heart failure. A cutoff of 1200 pg/mL for patients with an eGFR<60 yields a diagnostic sensitivity and specificity of 89% and 72% for acute congestive heart failure. A diagnostic NT-proBNP cutoff of 1800 pg/mL has been suggested in adults over 75 years of age in the absence of renal failure. Blood (Blood, Venous) 06/25/2023 10:04 AM TEST CONDUCTOR 06/25/2023 10:47 AM TEST CONDUCTOR Melody Jolly M.D. LAB BLOOD ADD-ON Performing Organization Address [facility] Co de Phone Number [facility] [address] [place], [place] [id number] [place] [address] [address] [place] [address] * (ABNORMAL) Prothrombin Time (PT) (06/25/2023 10:04 AM TEST CONDUCTOR) Prothrombin Time, P 19.3(H) 9.4 - 12.5 sec 06/25/2023 11:34 AM TEST CONDUCTOR DTL INR 1.7 0.9 - 1.1 06/25/2023 11:34 AM TEST CONDUCTOR DTL Comment: ----ADDITIONAL INFORMATION---- Standard intensity warfarin therapeutic range: 2.0 to 3.0 ?? High intensity warfarin therapeutic range: 2.5 to 3.5 Blood (Blood, Venous) 06/25/2023 10:04 AM TEST CONDUCTOR 06/25/2023 11:08 AM TEST CONDUCTOR Melody Jolly M.D. LAB BLOOD ADD-ON [facility] [address] [place] [address], [facility] DTL [facility] [address] [place] [address] * (ABNORMAL) CBC with Differential, Blood (06/25/2023 10:04 AM TEST CONDUCTOR) Hemoglobin 13.4 11.6 - 15.0 g/dL 06/25/2023 11:24 AM TEST CONDUCTOR DTL Hematocrit 41.5 35.5 - 44.9 % 06/25/2023 11:24 AM TEST CONDUCTOR DTL Erythrocytes 4.23 3.92 - 5.13 x10(12)/L 06/25/2023 11:24 AM TEST CONDUCTOR DTL MCV 98.1(H) 78.2 - 97.9 fL 06/25/2023 11:24 AM TEST CONDUCTOR DTL RBC Distrib Width 13.0 12.2 - 16.1 % 06/25/2023 11:24 AM TEST CONDUCTOR DTL Platelet Count 280 157 - 371 x10(9)/L 06/25/2023 11:24 AM TEST CONDUCTOR DTL Leukocytes 11.5(H) 3.4 - 9.6 x10(9)/L 06/25/2023 11:24 AM TEST CONDUCTOR DTL Neutrophils 8.93(H) 1.56 - 6.45 x10(9)/L 06/25/2023 11:24 AM TEST CONDUCTOR DHPM Lymphocytes 1.63 0.95 - 3.07 x10(9)/L 06/25/2023 11:24 AM TEST CONDUCTOR DTL Monocytes 0.65 0.26 - 0.81 x10(9)/L 06/25/2023 11:24 AM TEST CONDUCTOR DTL Eosinophils 0.19 0.03 - 0.48 x10(9)/L 06/25/2023 11:24 AM TEST CONDUCTOR DTL Basophils 0.06 0.01 - 0.08 x10(9)/L 06/25/2023 11:24 AM TEST CONDUCTOR DTL Blood (Blood, Venous) 06/25/2023 10:04 AM TEST CONDUCTOR 06/25/2023 11:08 AM TEST CONDUCTOR Melody Jolly M.D. LAB BLOOD ADD-ON [facility] [address] [place], [place] [address] [address] [place], [place] [phone] [place] [address] [address] [place] [address] * Sodium (06/25/2023 10:04 AM TEST CONDUCTOR) Sodium, S 142 135 - 145 mmol/L 06/25/2023 11:50 AM TEST CONDUCTOR DTL Blood (Blood, Venous) 06/25/2023 10:04 AM TEST CONDUCTOR 06/25/2023 10:47 AM TEST CONDUCTOR Melody Jolly M.D. LAB BLOOD ADD-ON Performing Organization Address City/[facility]/ZIP Co de Phone Number [facility] [address] [place], [place] [address] [address] [place] [address] * (ABNORMAL) Potassium (06/25/2023 10:04 AM TEST CONDUCTOR) Potassium, S 5.3(H) 3.6 - 5.2 mmol/L 06/25/2023 11:50 AM TEST CONDUCTOR DTL Blood (Blood, Venous) 06/25/2023 10:04 AM TEST CONDUCTOR 06/25/2023 10:47 AM TEST CONDUCTOR Melody Jolly M.D. LAB BLOOD ADD-ON [facility] [address] [place], [place] [phone] [place] [address] [address] [place] [address] * (ABNORMAL) Glucose, Fasting (06/25/2023 10:04 AM TEST CONDUCTOR) Glucose, P 116(H) 70 - 100 mg/dL 06/25/2023 11:32 AM TEST CONDUCTOR DTL Last Intake 14 hr 06/25/2023 10:45 AM TEST CONDUCTOR DTL Blood (Blood, Venous) 06/25/2023 10:04 AM TEST CONDUCTOR 06/25/2023 10:45 AM TEST CONDUCTOR Melody Jolly M.D. LAB BLOOD NON ADD-ON Performing Organization Address City/[facility] Co de Phone Number [facility] [address] [place] [address], [facility] DTL [facility] [address] [place] [address] * (ABNORMAL) Creatinine with Estimated GFR (06/25/2023 10:04 AM TEST CONDUCTOR) Creatinine 1.02 0.59 - 1.04 mg/dL 06/25/2023 11:50 AM TEST CONDUCTOR DTL Estimated GFR (eGFR) 56(L) >=60 mL/min/BSA 06/25/2023 11:50 AM TEST CONDUCTOR DTL Comment: Estimated GFR calculated using the 2020 CKD_EPI creatinine equation. Blood (Blood, Venous) 06/25/2023 10:04 AM TEST CONDUCTOR 06/25/2023 10:47 AM TEST CONDUCTOR Melody Jolly M.D. LAB BLOOD ADD-ON Performing Organization Address [facility] Co de Phone Number [facility] [address] [place] [address], [facility] DTL [facility] [address] [place] [address] * Albumin (06/25/2023 10:04 AM TEST CONDUCTOR) Albumin, S 4.0 3.5 - 5.0 g/dL 06/25/2023 11:50 AM TEST CONDUCTOR DTL Blood (Blood, Venous) 06/25/2023 10:04 AM TEST CONDUCTOR 06/25/2023 10:47 AM TEST CONDUCTOR Melody Jolly M.D. LAB BLOOD ADD-ON [facility] [address] [place] [address], [place] DTL [facility] [address] [place] [address] from Last 3 Months
--- OUTSIDE RECORDS SUMMARY | 2023-06-27 11:02 | XMS_ITS | Encounter Summary ---
Author Name Unknown Organization [facility] Address [address] [place] [id number] Care Team Providers Care Billboard Poster Helper Name Role Phone Unavailable Primary Care Provider Unavailabl e Encounter Details Date Type Department Care Team (Latest Contact Info) Description 06/25/2023 9:36 AM [employer]IP GENERAL MANAGER - 06/25/2023 10:32 AM [facility] En[facility] Department of Laboratory Medicine and Pathology, [facility], in [place], [place] [address] [place] [phone] Melody Jolly M.D. [address] [place] [address] Regurgitation Aortic Congenital (HCC); Replacement Heart Valve Tissue Discharge Disposition: Home or Self Care Social History Tobacco Use Types Packs/Day Years Used Date Smoking Tobacco: Never Smokeless Tobacco: Never Alcohol Use Standard Drinks/Week Comments Yes 4 (1 standard drink = 0.6 oz pur e alcohol) [facility] Utilities Answer Date Recorded In the past 12 months has [employer], oil, or water [employer] threatened to shut off services in your [...] your living situation today? [facility] 06/18/2023 Sex and Gender Information Value Date Recorded Sex Assigned at Female 06/18/2023 10:49 AM DEALER[employer]IP GENERAL MANAGER Gender Identity Female 06/18/2023 10:49 AM DEALER[employer]IP GENERAL MANAGER Sexual Orientation Straight 06/18/2023 10 :49 AM DEALERSHIP GENERAL MANAGER documented as of this encounter Medications at Time of Discharge Medication Sig Dispensed Refills Start Date End Date amLODIPine (NORVASC) 2.5 mg tablet amlodipine 2.5 mg tablet 0 10/20/2015 apixaban (Eliquis) 5 mg tablet 2 (two) times a day. 0 10/18/2015 atenoloL (TENORMIN) 25 mg tablet atenolol 25 mg tablet 0 10/17/2015 atorvastatin (LIPITOR) 40 mg tablet atorvastatin 40 mg tablet 0 07/16/2020 cetirizine (ZyrTEC) 10 mg tablet Take 1 tablet by mouth. 0 fluticasone propionate (FLONASE) 50 mcg/actuation nasal spray Administer 2 sprays into nostril(s). 0 03/11/2018 losartan (COZAAR) 50 mg tablet losartan 50 mg tablet 0 07/12/2020 multivit with minerals/lutein (MULTIVITAMIN 50 PLUS ORAL) Take 1 tablet by mouth. 0 rosuvastatin (CRESTOR) 20 mg tablet Take 1 tablet by mouth daily. 0 05/01/2023 documented as of this encounter Plan of Treatment Not on file documented as of this encounter Procedures Procedure Name Priority Date/Time Associated Diagnosis Comments LIPID PANEL, S Routine 06/25/2023 10:04 AM DEAL[employer]IP GENERAL MANAGER Regurgitation 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 NT-PRO B-TYPE NATRIURETIC PEPTIDE (BNP), S Routine 06/25/2023 10:04 AM DEALER[employer]IP GENERAL MANAGER Regurgitation 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 PROTHROMBIN TIME (PT), P Routine 06/25/2023 10:04 AM DEALER[employer]IP GENERAL MANAGER Regurgitation 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 CBC WITH DIFFERENTIAL, B Routine 06/25/2023 10:04 AM DEALER[employer]IP GENERAL MANAGER Regurgitation 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 SODIUM, S/P Routine 06/25/2023 10:04 AM DEALER[employer]IP GENERAL MANAGER Regurgitation 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 POTASSIUM, S/P Routine 06/25/2023 10:04 AM DEAL[employer]IP GENERAL MANAGER Regurgitation 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 GLUCOSE, FASTING, S/P Routine 06/25/2023 10:04 AM DEALER[employer]IP GENERAL MANAGER Regurgitation 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 CREATININE WITH EGFR, S/P Routine 06/25/2023 10:04 AM DEALER[employer]IP GENERAL MANAGER Regurgitation 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 ALBUMIN, S/P Routine 06/25/2023 10:04 AM DEALER[employer]IP GENERAL MANAGER Regurgitation 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 documented in this encounter Results * NT-Pro B-Type Natriuretic Peptide (BNP) (06/25/2023 10:04 AM DEALER[employer]IP GENERAL MANAGER) NT-Pro BNP 401 <=540 pg/mL 06/25/2023 11:50 AM DEALERSHIP GENERAL MANAGER DTL Comment: NT-proBNP values less than 300 [...] failure. Blood (Blood, Venous) 06/25/2023 10:04 AM DEALERSHIP GENERAL MANAGER 06/25/2023 10:47 AM DEALERSHIP GENERAL MANAGER Melody Jolly M.D. LAB BLOOD ADD-ON [facility] [place] [address] [place] [address], [facility] [address] [place] [address] * (ABNORMAL) Lipid Panel (06/25/2023 10:04 AM DEALERSHIP GENERAL MANAGER) Triglycerides 109 mg/dL 06/25/2023 11:50 AM DEALERSHIP GENERAL MANAGER DTL Comment: ----REFERENCE VALUE---- Normal: <150 mg/dL Borderline High: 150-199 mg/dL High: 200-499 mg/dL Very High: > or =500 mg/dL Cholesterol, Total 133 mg/dL 2023 11:50 AM DEALERSHIP GENERAL MANAGER DTL Comment: ----REFERENCE VALUE---- Desirable: < 200 mg/dL Borderline High: 200 - 239 mg/dL High: > or = 240 mg/dL Cholesterol, LDL, Calculated 64 mg/dL 06/25/2023 11:50 AM DEALERSHIP GENERAL MANAGER DTL Comment: ----REFERENCE VALUE---- Desirable: <100 mg/dL Above Desirable: 100-129 mg/dL Borderline High: 130-159 mg/dL High: 160-189 mg/dL Very High: >=190 mg/dL ----ADDITIONAL INFORMATION---- LDL cholesterol calculated using the Copeland/NIH equation. Cholesterol, HDL, S 49(L) >=50 mg/dL 06/25/2023 11:50 AM DEALERSHIP GENERAL MANAGER DTL Cholesterol, Non-HDL, Calculated 84 mg/dL 06/25/2023 11:50 AM DEALERSHIP GENERAL MANAGER DTL Comment: ----REFERENCE VALUE---- Desirable: <130 mg/dL Above Desirable: 130-159 mg/dL Borderline High: 160-189 mg/dL High: 190-219 mg/dL Very High: > or =220 mg/dL Fasting (8 HR or more) Yes 06/25/2023 10:47 AM DEALERSHIP GENERAL MANAGER DTL Blood (Blood, Venous) 06/25/2023 10:04 AM DEALERSHIP GENERAL MANAGER 06/25/2023 10:47 AM DEALERSHIP GENERAL MANAGER Melody Jolly M.D. LAB BLOOD ADD-ON [facility] [address] [place] [address], [facility] DTL [facility] [address] [place] [address] * (ABNORMAL) CBC with Differential, Blood (06/25/2023 10:04 AM DEALERSHIP GENERAL MANAGER) Hemoglobin 13.4 11.6 - 15.0 g/dL 06/25/2023 11:24 AM DEALERSHIP GENERAL MANAGER DTL Hematocrit 41.5 35.5 - 44.9 % 06/25/2023 11:24 AM DEALERSHIP GENERAL MANAGER DTL Erythrocytes 4.23 3.92 - 5.13 x10(12)/L 06/25/2023 11:24 AM DEALERSHIP GENERAL MANAGER DTL MCV 98.1(H) 78.2 - 97.9 fL 06/25/2023 11:24 AM DEALERSHIP GENERAL MANAGER DTL RBC Distrib Width 13.0 12.2 - 16.1 % 06/25/2023 11:24 AM DEALERSHIP GENERAL MANAGER DTL Platelet Count 280 157 - 371 x10(9)/L 06/25/2023 11:24 AM DEALERSHIP GENERAL MANAGER DTL Leukocytes 11.5(H) 3.4 - 9.6 x10(9)/L 06/25/2023 11:24 AM DEALERSHIP GENERAL MANAGER DTL Neutrophils 8.93(H) 1.56 - 6.45 x10(9)/L 06/25/2023 11:24 AM DEALERSHIP GENERAL MANAGER DHPM Lymphocytes 1.63 0.95 - 3.07 x10(9)/L 06/25/2023 11:24 AM DEALERSHIP GENERAL MANAGER DTL Monocytes 0.65 0.26 - 0.81 x10(9)/L 06/25/2023 11:24 AM DEALERSHIP GENERAL MANAGER DTL Eosinophils 0.19 0.03 - 0.48 x10(9)/L 06/25/2023 11:24 AM DEALERSHIP GENERAL MANAGER DTL Basophils 0.06 0.01 - 0.08 x10(9)/L 06/25/2023 11:24 AM DEALERSHIP GENERAL MANAGER DTL Blood (Blood, Venous) 06/25/2023 10:04 AM DEALERSHIP GENERAL MANAGER 06/25/2023 11:08 AM DEALERSHIP GENERAL MANAGER Melody Jolly M.D. LAB BLOOD ADD-ON Performing Organization Address City/[facility]/ZIP Co de Phone Number [facility] [place] [address] [place] [address], [facility] DTL [facility] [address] [place] [address] [facility] [address] [place] [address] * (ABNORMAL) Prothrombin Time (PT) (06/25/2023 10:04 AM DEALERSHIP GENERAL MANAGER) Prothrombin Time, P 19.3(H) 9.4 - 12.5 sec 06/25/2023 11:34 AM DEALERSHIP GENERAL MANAGER DTL INR 1.7 0.9 - 1.1 06/25/2023 11:34 AM DEALERSHIP GENERAL MANAGER DTL Comment: ----ADDITIONAL INFORMATION---- Standard intensity warfarin therapeutic range: 2.0 to 3.0 ?? High intensity warfarin therapeutic range: 2.5 to 3.5 Blood (Blood, Venous) 06/25/2023 10:04 AM DEALERSHIP GENERAL MANAGER 06/25/2023 11:08 AM DEALERSHIP GENERAL MANAGER Melody Jolly M.D. LAB BLOOD ADD-ON Performing Organization Address City/[facility]/ZIP Co de Phone Number [facility] [place] [address] [place] [address], [facility] [address] [place] [address] * Sodium (06/25/2023 10:04 AM DEALERSHIP GENERAL MANAGER) Sodium, S 142 135 - 145 mmol/L 06/25/2023 11:50 AM DEALERSHIP GENERAL MANAGER DTL Blood (Blood, Venous) 06/25/2023 10:04 AM DEALERSHIP GENERAL MANAGER 06/25/2023 10:47 AM DEALERSHIP GENERAL MANAGER Melody Jolly M.D. LAB BLOOD ADD-ON [facility] [place] [address] [place], [place] [phone] [place] [address] 200 [place] [address] * (ABNORMAL) Potassium (06/25/2023 10:04 AM DEALERSHIP GENERAL MANAGER) Potassium, S 5.3(H) 3.6 - 5.2 mmol/L 06/25/2023 11:50 AM DEALERSHIP GENERAL MANAGER DTL Blood (Blood, Venous) 06/25/2023 10:04 AM DEALERSHIP GENERAL MANAGER 06/25/2023 10:47 AM DEALERSHIP GENERAL MANAGER Melody Jolly M.D. LAB BLOOD ADD-ON Performing Organization Address City/[facility]/ZIP Co de Phone Number [facility] [place] [address] [place], [place] [phone] [place] [address] 200 [place] [address] * (ABNORMAL) Glucose, Fasting (06/25/2023 10:04 AM DEALERSHIP GENERAL MANAGER) Pathologist [facility] Glucose, P 116(H) 70 - 100 mg/dL 06/25/2023 11:32 AM DEALERSHIP GENERAL MANAGER DTL Last Intake 14 hr 06/25/2023 10:45 AM DEALERSHIP GENERAL MANAGER DTL Blood (Blood, Venous) 06/25/2023 10:04 AM DEALERSHIP GENERAL MANAGER 06/25/2023 10:45 AM DEALERSHIP GENERAL MANAGER Melody Jolly M.D. LAB BLOOD NON ADD-ON [facility] [place] [address] [place], [place] [id number] [place] [address] 200 [place] [address] * (ABNORMAL) Creatinine with Estimated GFR (06/25/2023 10:04 AM DEALERSHIP GENERAL MANAGER) Creatinine 1.02 0.59 - 1.04 mg/dL 06/25/2023 11:50 AM DEALERSHIP GENERAL MANAGER DTL Estimated GFR (eGFR) 56(L) >=60 mL/min/BSA 06/25/2023 11:50 AM DEALERSHIP GENERAL MANAGER DTL Comment: Estimated GFR calculated using the 2020 CKD_EPI creatinine equation. Blood (Blood, Venous) 06/25/2023 10:04 AM DEALERSHIP GENERAL MANAGER 06/25/2023 10:47 AM DEALERSHIP GENERAL MANAGER Melody Jolly M.D. LAB BLOOD ADD-ON [facility] [place] [address] [place] [address], [address] [address] * Albumin (06/25/2023 10:04 AM DEALERSHIP GENERAL MANAGER) Albumin, S 4.0 3.5 - 5.0 g/dL 06/25/2023 11:50 AM DEALERSHIP GENERAL MANAGER DTL Blood (Blood, Venous) 06/25/2023 10:04 AM DEALERSHIP GENERAL MANAGER 06/25/2023 10:47 AM DEALERSHIP GENERAL MANAGER Melody Jolly M.D. LAB BLOOD ADD-ON [facility] [place] [address] [place] [address], [address] [address] documented in this encounter Visit Diagnoses Diagnosis Regurgitation 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 documented in this encounter
--- OUTSIDE RECORDS SUMMARY | 2023-06-27 11:02 | XMS_ITS | Encounter Summary ---
Author Name Unknown Organization [facility] Address [address] [place] [address] Care Team Providers Care Street Cleaning Equipment Operator Name Role Phone Unavailable Primary Care Provider Unavailabl e Reason for Referral * Outpatient (Routine) - Closed Specialty Diagnoses / Procedures Referred By Gerardo t Referred To Contact Diagnoses Regurgitation 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 Procedures ECG 12 Lead Melody Jolly M.D. [address] [place] [address] [facility] Referral ID Status Reason Start Date Expiration Date Visits Re quested Visits Authorized [id number] Closed 04/16/2023 04/15/2024 1 1 PATIAL PROGRAM MANAGEMENT OFFICER * Outpatient (Routine) - Closed Specialty Diagnoses / Procedures Referred By Gerardo gonsalez Referred To Contact Diagnoses Regurgitation 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 Procedures Echo Transthoracic (TTE) - Complex Valvular Heart Disease Melody Jolly M.D. [address] [place] [address] [facility] Referral ID Status Reason Start Date Expiration Date Visits Re quested Visits Authorized [id number] Closed 04/16/2023 04/15/2024 1 1 PATIAL PROGRAM MANAGEMENT OFFICER * Outpatient (Routine) - Closed Specialty Diagnoses / Procedures Referred By Contac t Referred To Contact Diagnoses Regurgitation 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 Procedures DX Chest AP or PA and Lateral 2 Views Melody Jolly M.D. [address] [place] [address] [facility] Referral ID Status Reason Start Date Expiration Date Visits Re quested Visits Authorized [id number] Closed 04/16/2023 04/15/2024 1 1 PATIAL PROGRAM MANAGEMENT OFFICER Reason for Visit * Reason Onset Date Comments Pre-visit Testing Orders 04/02/2023 Encounter Details Date Type Department Care Team (Latest Contact Info) Description 04/02/2023 Clinical Communication Department of Cardiovascular Medicine in [place], [place] [address] [place] [address] Melody Jolly M.D. [address] [place] [address] Pre-visit Testing Orders Social History Tobacco Use Types Packs/Day Years Used Date Smoking Tobacco: Never Smokeless Tobacco: Never Nutrition Answer Date Recorded Nutrition: EVOO Fat Source Unknown 12/24 Nutrition: Servings of Fruits/Vegetables per Day Not on file 12/24/2020 Dental Answer Date Recorded Dental: Regular Dentist Unknown 12/25/19 21 Sex and Gender Information Value Date Recorded Sex Assigned at Female 06/18/2023 10:49 AM GEOSPATIAL PROGRAM MANAGEMENT OFFICER Gender Identity Female 06/18/2023 10:49 AM GEOSPATIAL PROGRAM MANAGEMENT OFFICER Sexual Orientation Straight 06/18/2023 10 :49 AM GEOSPATIAL PROGRAM MANAGEMENT OFFICER documented as of this encounter Plan of Treatment Not on file documented as of this encounter Results * (TTE) 2D ECHO DOPPLER COLOR (06/25/2023 1:59 PM GEOSPATIAL PROGRAM MANAGEMENT OFFICER) Ejection Fraction 56 MC CV EIMS Mid-Ascending [...] Laterality Modality Echocardiography 06/25/2023 12:3 5 PM GEOSPATIAL PROGRAM MANAGEMENT OFFICER Impressions 06/25/2023 2:43 PM GEOSPATIAL PROGRAM MANAGEMENT OFFICER LEFT VENTRICLE:Mildly enlarged left ventricular chamber size. [...] the Order-Level Documents. Narrative 06/25/2023 2:43 PM GEOSPATIAL PROGRAM MANAGEMENT OFFICER For the complete report, see the Order-Level [...] and Lateral 2 Views (06/25/2023 10:46 AM GEOSPATIAL PROGRAM MANAGEMENT OFFICER) Anatomical Region Laterality Modality Chest, Thoracic RST LOS, Tho racic ARZ LOS, Thoracic FLA LOS N/A Digital Radiography Impressions 06/25/2023 11:33 AM GEOSPATIAL PROGRAM MANAGEMENT OFFICER No significant change since 02/16/2021. Sternotomy. Abandoned epicardial pacing wires. Enlarged cardiac silhouette. Degenerative changes of the spine. Chest otherwise negative. Narrative 06/25/2023 11:33 AM GEOSPATIAL PROGRAM MANAGEMENT OFFICER EXAM: ??DX CHEST AP OR PA AND LATERAL 2 VIEWS Procedure Note Carlos Colón M.D. - 06/25/2023 EXAM: DX CHEST AP OR PA AND LATERAL 2 VIEWS IMPRESSION: No significant change since 02/16/2021. Sternotomy. Abandoned epicardialpacing wires. Enlarged cardiac silhouette. Degenerative changes of thespine. Chest otherwise negative. Melody Jolly M.D. IMG DIAGNOSTIC IMAGI NG PROCEDURES * ECG 12 Lead (06/25/2023 10:23 AM GEOSPATIAL PROGRAM MANAGEMENT OFFICER) Ventricular Rate ECG/Min 69 BPM MUSE SD Interval 194 ms MUSE QRSD Interval 128 ms MUSE QT Interval 450 ms MUSE QTC Interval 482 ms MUSE P Pep 79 degrees MUSE R Pep 17 degrees MUSE T Wave Pep 97 degrees MUSE 06/25/2023 10:2 3 AM GEOSPATIAL PROGRAM MANAGEMENT OFFICER 06/25/2023 10:27 AM GEOSPATIAL PROGRAM MANAGEMENT OFFICER Impressions MUSE - 06/25/2023 10:27 AM GEOSPATIAL PROGRAM MANAGEMENT OFFICER Sinus rhythm with sinus arrhythmia Left bundle [...] MIGDALIA Almaraz Melody Jolly M.D. ECG ORDERABLES Performing Organization Address City/[facility] Co de Phone Number MUSE NA * NT-Pro B-Type Natriuretic Peptide (BNP) (06/25/2023 10:04 AM GEOSPATIAL PROGRAM MANAGEMENT OFFICER) NT-Pro BNP 401 <=540 pg/mL 06/25/2023 11:50 AM GEOSPATIAL PROGRAM MANAGEMENT OFFICER DTL Comment: NT-proBNP values less than 300 [...] failure. Blood (Blood, Venous) 06/25/2023 10:04 AM GEOSPATIAL PROGRAM MANAGEMENT OFFICER 06/25/2023 10:47 AM GEOSPATIAL PROGRAM MANAGEMENT OFFICER Melody Jolly M.D. LAB BLOOD ADD-ON Performing Organization Address City/[facility] [place] [address], [facility] DTL [place] [address] [place] [address] * (ABNORMAL) Lipid Panel (06/25/2023 10:04 AM GEOSPATIAL PROGRAM MANAGEMENT OFFICER) Triglycerides 109 mg/dL 06/25/2023 11:50 AM GEOSPATIAL PROGRAM MANAGEMENT OFFICER DTL Comment: ----REFERENCE VALUE---- Normal: <150 mg/dL Borderline High: 150-199 mg/dL High: 200-499 mg/dL Very High: > or =500 mg/dL Cholesterol, Total 133 mg/dL 2023 11:50 AM GEOSPATIAL PROGRAM MANAGEMENT OFFICER DTL Comment: ----REFERENCE VALUE---- Desirable: < 200 mg/dL Borderline High: 200 - 239 mg/dL High: > or = 240 mg/dL Cholesterol, LDL, Calculated 64 mg/dL 06/25/2023 11:50 AM GEOSPATIAL PROGRAM MANAGEMENT OFFICER DTL Comment: ----REFERENCE VALUE---- Desirable: <100 mg/dL Above Desirable: 100-129 mg/dL Borderline High: 130-159 mg/dL High: 160-189 mg/dL Very High: >=190 mg/dL ----ADDITIONAL INFORMATION---- LDL cholesterol calculated using the Copeland/NIH equation. Cholesterol, HDL, S 49(L) >=50 mg/dL 06/25/2023 11:50 AM GEOSPATIAL PROGRAM MANAGEMENT OFFICER DTL Cholesterol, Non-HDL, Calculated 84 mg/dL 06/25/2023 11:50 AM GEOSPATIAL PROGRAM MANAGEMENT OFFICER DTL Comment: ----REFERENCE VALUE---- Desirable: <130 mg/dL Above Desirable: 130-159 mg/dL Borderline High: 160-189 mg/dL High: 190-219 mg/dL Very High: > or =220 mg/dL Fasting (8 HR or more) Yes 06/25/2023 10:47 AM GEOSPATIAL PROGRAM MANAGEMENT OFFICER DTL Blood (Blood, Venous) 06/25/2023 10:04 AM GEOSPATIAL PROGRAM MANAGEMENT OFFICER 06/25/2023 10:47 AM GEOSPATIAL PROGRAM MANAGEMENT OFFICER Melody Jolly M.D. LAB BLOOD ADD-ON [facility] [address] [address], [facility] [address] [place] [address] * (ABNORMAL) CBC with Differential, Blood (06/25/2023 10:04 AM GEOSPATIAL PROGRAM MANAGEMENT OFFICER) Hemoglobin 13.4 11.6 - 15.0 g/dL 06/25/2023 11:24 AM GEOSPATIAL PROGRAM MANAGEMENT OFFICER DTL Hematocrit 41.5 35.5 - 44.9 % 06/25/2023 11:24 AM GEOSPATIAL PROGRAM MANAGEMENT OFFICER DTL Erythrocytes 4.23 3.92 - 5.13 x10(12)/L 06/25/2023 11:24 AM GEOSPATIAL PROGRAM MANAGEMENT OFFICER DTL MCV 98.1(H) 78.2 - 97.9 fL 06/25/2023 11:24 AM GEOSPATIAL PROGRAM MANAGEMENT OFFICER DTL RBC Distrib Width 13.0 12.2 - 16.1 % 06/25/2023 11:24 AM GEOSPATIAL PROGRAM MANAGEMENT OFFICER DTL Platelet Count 280 157 - 371 x10(9)/L 06/25/2023 11:24 AM GEOSPATIAL PROGRAM MANAGEMENT OFFICER DTL Leukocytes 11.5(H) 3.4 - 9.6 x10(9)/L 06/25/2023 11:24 AM GEOSPATIAL PROGRAM MANAGEMENT OFFICER DTL Neutrophils 8.93(H) 1.56 - 6.45 x10(9)/L 06/25/2023 11:24 AM GEOSPATIAL PROGRAM MANAGEMENT OFFICER PM Lymphocytes 1.63 0.95 - 3.07 x10(9)/L 06/25/2023 11:24 AM GEOSPATIAL PROGRAM MANAGEMENT OFFICER DTL Monocytes 0.65 0.26 - 0.81 x10(9)/L 06/25/2023 11:24 AM GEOSPATIAL PROGRAM MANAGEMENT OFFICER DTL Eosinophils 0.19 0.03 - 0.48 x10(9)/L 06/25/2023 11:24 AM GEOSPATIAL PROGRAM MANAGEMENT OFFICER DTL Basophils 0.06 0.01 - 0.08 x10(9)/L 06/25/2023 11:24 AM GEOSPATIAL PROGRAM MANAGEMENT OFFICER DTL Blood (Blood, Venous) 06/25/2023 10:04 AM GEOSPATIAL PROGRAM MANAGEMENT OFFICER 06/25/2023 11:08 AM GEOSPATIAL PROGRAM MANAGEMENT OFFICER Melody Jolly M.D. LAB BLOOD ADD-ON [facility] [address] [place] [address], [facility] [address] [place], [place] [phone] [place] [address] [address] [place] [address] * (ABNORMAL) Prothrombin Time (PT) (06/25/2023 10:04 AM GEOSPATIAL PROGRAM MANAGEMENT OFFICER) Pathologist [facility] Prothrombin Time, P 19.3(H) 9.4 - 12.5 sec 06/25/2023 11:34 AM GEOSPATIAL PROGRAM MANAGEMENT OFFICER DTL INR 1.7 0.9 - 1.1 06/25/2023 11:34 AM GEOSPATIAL PROGRAM MANAGEMENT OFFICER DTL Comment: ----ADDITIONAL INFORMATION---- Standard intensity warfarin therapeutic range: 2.0 to 3.0 ?? High intensity warfarin therapeutic range: 2.5 to 3.5 Blood (Blood, Venous) 06/25/2023 10:04 AM GEOSPATIAL PROGRAM MANAGEMENT OFFICER 06/25/2023 11:08 AM GEOSPATIAL PROGRAM MANAGEMENT OFFICER Narrative Authorizing Provider Result Luci Jolly M.D. LAB BLOOD ADD-ON [facility] [address] [place] [address] * Sodium (06/25/2023 10:04 AM GEOSPATIAL PROGRAM MANAGEMENT OFFICER) Sodium, S 142 135 - 145 mmol/L 06/25/2023 11:50 AM GEOSPATIAL PROGRAM MANAGEMENT OFFICER DT Blood (Blood, Venous) 06/25/2023 10:04 AM GEOSPATIAL PROGRAM MANAGEMENT OFFICER 06/25/2023 10:47 AM GEOSPATIAL PROGRAM MANAGEMENT OFFICER Melody Jolly M.D. LAB BLOOD ADD-ON Performing Organization Address City/[facility]/ZIP Co de Phone Number [facility] [address] [place], [place] [address] [place] [address] [address] [place] [address] * (ABNORMAL) Potassium (06/25/2023 10:04 AM GEOSPATIAL PROGRAM MANAGEMENT OFFICER) Potassium, S 5.3(H) 3.6 - 5.2 mmol/L 06/25/2023 11:50 AM GEOSPATIAL PROGRAM MANAGEMENT OFFICER DT Blood (Blood, Venous) 06/25/2023 10:04 AM GEOSPATIAL PROGRAM MANAGEMENT OFFICER 06/25/2023 10:47 AM GEOSPATIAL PROGRAM MANAGEMENT OFFICER Melody Jolly M.D. LAB BLOOD ADD-ON [facility] [address] [place] [address] * (ABNORMAL) Glucose, Fasting (06/25/2023 10:04 AM GEOSPATIAL PROGRAM MANAGEMENT OFFICER) Glucose, P 116(H) 70 - 100 mg/dL 06/25/2023 11:32 AM GEOSPATIAL PROGRAM MANAGEMENT OFFICER DTL Last Intake 14 hr 06/25/2023 10:45 AM GEOSPATIAL PROGRAM MANAGEMENT OFFICER DTL Blood (Blood, Venous) 06/25/2023 10:04 AM GEOSPATIAL PROGRAM MANAGEMENT OFFICER 06/25/2023 10:45 AM GEOSPATIAL PROGRAM MANAGEMENT OFFICER Melody Jolly M.D. LAB BLOOD NON ADD-ON Performing Organization Address City/[facility] Co de Phone Number [facility] [address] [place] [address], [facility] [address] [place] [address] * (ABNORMAL) Creatinine with Estimated GFR (06/25/2023 10:04 AM GEOSPATIAL PROGRAM MANAGEMENT OFFICER) Creatinine 1.02 0.59 - 1.04 mg/dL 06/25/2023 11:50 AM GEOSPATIAL PROGRAM MANAGEMENT OFFICER DTL Estimated GFR (eGFR) 56(L) >=60 mL/min/BSA 06/25/2023 11:50 AM GEOSPATIAL PROGRAM MANAGEMENT OFFICER DTL Comment: Estimated GFR calculated using the 2020 CKD_EPI creatinine equation. Blood (Blood, Venous) 06/25/2023 10:04 AM GEOSPATIAL PROGRAM MANAGEMENT OFFICER 06/25/2023 10:47 AM GEOSPATIAL PROGRAM MANAGEMENT OFFICER Melody Jolly M.D. LAB BLOOD ADD-ON Performing Organization Address City/[facility] Co de Phone Number [facility] [address] [place] [address], [facility] [address] [place] [address] * Albumin (06/25/2023 10:04 AM GEOSPATIAL PROGRAM MANAGEMENT OFFICER) Albumin, S 4.0 3.5 - 5.0 g/dL 06/25/2023 11:50 AM GEOSPATIAL PROGRAM MANAGEMENT OFFICER DTL Blood (Blood, Venous) 06/25/2023 10:04 AM GEOSPATIAL PROGRAM MANAGEMENT OFFICER 06/25/2023 10:47 AM GEOSPATIAL PROGRAM MANAGEMENT OFFICER Melody Jolly M.D. LAB BLOOD ADD-ON [facility] [address] [place] [address], [facility] DTL [facility] [address] [place] [address] documented in this encounter Visit Diagnoses Diagnosis Regurgitation Aortic Congenital (HCC)- Primary Replacement Heart Valve Tissue Regurgitation 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 Regurgitation 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 documented in this encounter
--- OUTSIDE RECORDS SUMMARY | 2023-06-27 11:02 | XMS_ITS | Encounter Summary ---
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 [address] [place] [address] [facility] Referral ID Status Reason Start Date Expiration Date Visits Re quested Visits Authorized [id number] Closed 04/16/2023 04/15/2024 1 1 Encounter Details Date Type Department Care Team (Latest Contact Info) Description 06/25/2023 11:53 AM INDUSTRIAL GAS SERVICER HELPER - 06/25/2023 11:59 PM INDUSTRIAL GAS SERVICER HELPER Hospital Encounter Department of Cardiovascular Diseases in [place], [place] [address] [place] [phone] Melody Jolly M.D. [address] [place] [address] Regurgitation Aortic Congenital (HCC); Replacement Heart Valve Tissue Discharge Disposition: Home or Self Care Social History Tobacco Use Types Packs/Day Years Used Date Smoking Tobacco: Never Smokeless Tobacco: Never Alcohol Use Standard Drinks/Week Comments Yes 4 (1 standard drink = 0.6 oz pur e alcohol) [facility] Utilities Answer Date Recorded In the past 12 months has th e [employer], gas, oil, or water [facility] threatened to shut off services in your [...] your living situation today? 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 [...] the Order-Level Documents. Narrative 06/25/2023 2:43 PM INDUSTRIAL GAS SERVICER HELPER For the complete report, see the Order-Level [...]
--- OUTSIDE RECORDS SUMMARY | 2023-06-27 11:02 | XMS_ITS | Encounter Summary ---
Author Name Unknown Organization [facility] Address [address] [place] [address] Care Team Providers Care Senior Front End Developer Name Role Phone Unavailable Primary Care Provider Unavailabl e Reason for Visit * Reason Onset Date Comments Pre-visit Intake 06/22/2023 Encounter Details Date Type Department Care Team (Latest Contact Info) Description 06/22/2023 8:15 AM STERILE SUPPLY TECHNICIAN Clinical Communication Virtual Review in [place], [place] [address] [place], [place] [phone] Pre-visit Intake Social History Tobacco Use Types Packs/Day Years Used Date Smoking Tobacco: Never Smokeless Tobacco: Never Tobacco Cessation:Counseling Given: Not Answered [facility] Utilities Answer Date Recorded In the past 12 months has th e electric, gas, oil, or water [employer] threatened to shut off services in your [...] your living situation today? I have a [facility] place to live 06/18/2023 Sex and Gender Information Value Date Recorded Sex Assigned at Female 06/18/2023 10:49 AM STERILE SUPPLY TECHNICIAN Gender Identity Female 06/18/2023 10:49 AM STERILE SUPPLY TECHNICIAN Sexual Orientation Straight 06/18/2023 10 :49 AM STERILE SUPPLY TECHNICIAN documented as of this encounter Plan of Treatment Not on file documented as of this encounter Visit Diagnoses Not on filedocumented in this encounter
--- OUTSIDE RECORDS SUMMARY | 2023-06-27 11:02 | XMS_ITS | Referral Summary ---
Author Name Unknown Organization [facility] Address [address] [place] [address] Care Team Providers Care Glass Laminating Operator Name Role Phone Unavailable Primary Care Provider Unavailabl e Source Comments Patient records contain information from all sites at [facility]. For routine questions regarding patient records, call [phone] during business hours, M-F 8:00 AM - 5:00 PM Central Time. Record requests for emergency care only can be directed to [phone] at any time.[facility] Encounters Date Type Department Care Team Description 06/25/2023 10:33 AM SEAFOOD PROCESS WORKER - 06/25/2023 11:52 AM [facility] Hospital Encounter Department of Radiology, [facility] in [place], [place] [address] [place] [phone] Melody Jolly M.D. Regurgitation Aortic Congenital (HCC); Replacement Heart Valve Tissue Discharge Disposition: Home or Self Care 06/25/2023 9:36 AM SEAFOOD PROCESS WORKER - 06/25/2023 10:32 AM [facility] Hospital Encounter Department of Laboratory Medicine and Pathology, [facility] in [place], [place] [address] [place] [address] Melody Jolly M.D. Regurgitation Aortic Congenital (HCC); Replacement Heart Valve Tissue Discharge Disposition: Home or Self Care 06/25/2023 11:53 AM SEAFOOD PROCESS WORKER - 06/25/2023 11:59 PM [facility] Hospital Encounter Department of Cardiovascular Diseases in [place], [place] [address] [place] [address] Melody Jolly M.D. Regurgitation Aortic Congenital (HCC); Replacement Heart Valve Tissue Discharge Disposition: Home or Self Care 06/25/2023 4:00 PM SEAFOOD PROCESS WORKER Office Visit Department of Cardiovascular Medicine in [place], [place] [address] [place] [address] Melody Jolly M.D. 06/22/2023 8:15 AM SEAFOOD PROCESS WORKER Clinical Communication Virtual Review in [place], [place] 200 [place] [address] Pre-visit Intake 04/02/2023 Clinical Communication Department of Cardiovascular Medicine in [place], [place] [address] [place] [address] Melody Jolly M.D. Pre-visit Testing Orders from Last 3 Months Allergies Active Allergy Reactions Criticality Noted Date [...] tablet by mouth daily. 0 05/01/2023 Active Social History Tobacco Use Types Packs/Day Years Used Date Smoking Tobacco: Never Smokeless Tobacco: Never Tobacco Cessation:Counseling Given: Not Answered Alcohol Use Standard Drinks/Week Comments Yes 4 (1 standard drink = 0.6 oz pur e alcohol) [facility] Utilities Answer Date Recorded In the past 12 months has th e [employer], gas, oil, or water company threatened to [...] your living situation today? I have a [facility] place to live 06/18/2023 Sex and Gender Information Value Date Recorded Sex Assigned at Female 06/18/2023 10:49 AM SEAFOOD PROCESS WORKER Gender Identity Female 06/18/2023 10:49 AM SEAFOOD PROCESS WORKER Sexual Orientation Straight 06/18/2023 10 :49 AM SEAFOOD PROCESS WORKER Last Filed Vital Signs Vital Sign Reading Time Taken Comments Blood Pressure 123/57 06/25/2023 3:56 PM SEAFOOD PROCESS WORKER Pulse 72 06/25/2023 3:56 PM SEAFOOD PROCESS WORKER Temperature - - Respiratory Rate 17 08/24/2021 10:25 AM CDT Oxygen Saturation 95% 08/24/2021 10:29 AM CDT Inhaled Oxygen Concentration - - Weight - - Height - - Body Mass Index - - Plan of Treatment Not on file Procedures Procedure Name Priority Date/Time Associated Diagnosis Comments (TTE) 2D ECHO DOPPLER COLOR Routine 06/25/2023 1:59 PM SEAFOOD PROCESS WORKER Regurgitation 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 DX CHEST AP OR PA AND LATERAL 2 VIEWS RAD - Routine (most inpatients and all outpatients) 06/25/2023 10:46 AM SEAFOOD PROCESS WORKER Regurgitation 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 ECG Routine 06/25/2023 10:23 AM SEAFOOD PROCESS WORKER Regurgitation 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 NT-PRO B-TYPE NATRIURETIC PEPTIDE (BNP), S Routine 06/25/2023 10:04 AM SEAFOOD PROCESS WORKER Regurgitation 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 LIPID PANEL, S Routine 06/25/2023 10:04 AM SEAFOOD PROCESS WORKER Regurgitation 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 CBC WITH DIFFERENTIAL, B Routine 06/25/2023 10:04 AM SEAFOOD PROCESS WORKER Regurgitation 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 PROTHROMBIN TIME (PT), P Routine 06/25/2023 10:04 AM SEAFOOD PROCESS WORKER Regurgitation 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 SODIUM, S/P Routine 06/25/2023 10:04 AM SEAFOOD PROCESS WORKER Regurgitation 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 POTASSIUM, S/P Routine 06/25/2023 10:04 AM SEAFOOD PROCESS WORKER Regurgitation 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 GLUCOSE, FASTING, S/P Routine 06/25/2023 10:04 AM SEAFOOD PROCESS WORKER Regurgitation 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 CREATININE WITH EGFR, S/P Routine 06/25/2023 10:04 AM SEAFOOD PROCESS WORKER Regurgitation 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 [...] the Order-Level Documents. Narrative 06/25/2023 2:43 PM SEAFOOD PROCESS WORKER For the complete report, see the Order-Level Documents. Hemodynamics Heart Rate: 70 BPM Blood Pressure: 122 / 61 mmHg ECG: Sinus rhythm with ectopics, Left bundle branch block Final Impressions 1. 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 ??Aortic valve systolic mean Doppler gradient 4 [...] post Ross procedure and pulmonary valve homograft(elsewhere, 1999). Aortic valve systolic mean Doppler gradient 4 mmHg.Moderate aortic valve regurgitation. Mildly thickened mitral valve. Mildmitral valve regurgitation. Normal pulmonary valve homograft. Status postmm pulmonary valve homograft (elsewhere, 1999). Pulmonary valve prosthesissystolic mean Doppler gradient 5 [...] and Lateral 2 Views (06/25/2023 10:46 AM SEAFOOD PROCESS WORKER) Anatomical Region Laterality Modality Chest, Thoracic RST LOS, Tho racic ARZ LOS, Thoracic FLA LOS N/A Digital Radiography Impressions 06/25/2023 11:33 AM SEAFOOD PROCESS WORKER No significant change since 02/16/2021. Sternotomy. Abandoned epicardial pacing wires. Enlarged cardiac silhouette. Degenerative changes of the spine. Chest otherwise negative. Narrative 06/25/2023 11:33 AM SEAFOOD PROCESS WORKER EXAM: ??DX CHEST AP OR PA AND LATERAL 2 VIEWS Procedure Note Carlos Colón M.D. - 06/25/2023 EXAM: DX CHEST AP OR PA AND LATERAL 2 VIEWS IMPRESSION: No significant change since 02/16/2021. Sternotomy. Abandoned epicardialpacing wires. Enlarged cardiac silhouette. Degenerative changes of thespine. Chest otherwise negative. Melody Jolly M.D. IMG DIAGNOSTIC IMAGI NG PROCEDURES * ECG 12 Lead (06/25/2023 10:23 AM SEAFOOD PROCESS WORKER) Ventricular Rate ECG/Min 69 BPM MUSE OH Interval 194 ms MUSE QRSD Interval 128 ms MUSE QT Interval 450 ms MUSE QTC Interval 482 ms MUSE P [place] 79 degrees MUSE R [place] 17 degrees MUSE T Wave [place] 97 degrees MUSE 06/25/2023 10:2 3 AM SEAFOOD PROCESS WORKER 06/25/2023 10:27 AM SEAFOOD PROCESS WORKER Impressions MUSE - 06/25/2023 10:27 AM SEAFOOD PROCESS WORKER Sinus rhythm with sinus arrhythmia Left bundle [...] * (ABNORMAL) Lipid Panel (06/25/2023 10:04 AM SEAFOOD PROCESS WORKER) Triglycerides 109 mg/dL 06/25/2023 11:50 AM SEAFOOD PROCESS WORKER DTL Comment: ----REFERENCE VALUE---- Normal: <150 mg/dL Borderline High: 150-199 mg/dL High: 200-499 mg/dL Very High: > or =500 mg/dL Cholesterol, Total 133 mg/dL 2023 11:50 AM SEAFOOD PROCESS WORKER DTL Comment: ----REFERENCE VALUE---- Desirable: < 200 mg/dL Borderline High: 200 - 239 mg/dL High: > or = 240 mg/dL Cholesterol, LDL, Calculated 64 mg/dL 06/25/2023 11:50 AM SEAFOOD PROCESS WORKER DTL Comment: ----REFERENCE VALUE---- Desirable: <100 mg/dL Above Desirable: 100-129 mg/dL Borderline High: 130-159 mg/dL High: 160-189 mg/dL Very High: >=190 mg/dL ----ADDITIONAL INFORMATION---- LDL cholesterol calculated using the Copeland/NIH equation. Cholesterol, HDL, S 49(L) >=50 mg/dL 06/25/2023 11:50 AM SEAFOOD PROCESS WORKER DTL Cholesterol, Non-HDL, Calculated 84 mg/dL 06/25/2023 11:50 AM SEAFOOD PROCESS WORKER DTL Comment: ----REFERENCE VALUE---- Desirable: <130 mg/dL Above Desirable: 130-159 mg/dL Borderline High: 160-189 mg/dL High: 190-219 mg/dL Very High: > or =220 mg/dL Fasting (8 HR or more) Yes 06/25/2023 10:47 AM SEAFOOD PROCESS WORKER DTL Blood (Blood, Venous) 06/25/2023 10:04 AM SEAFOOD PROCESS WORKER 06/25/2023 10:47 AM SEAFOOD PROCESS WORKER Melody Jolly M.D. LAB BLOOD ADD-ON Performing Organization Address [facility] Co de Phone Number [address] [place] [address] * NT-Pro B-Type Natriuretic Peptide (BNP) (06/25/2023 10:04 AM SEAFOOD PROCESS WORKER) NT-Pro BNP 401 <=540 pg/mL 06/25/2023 11:50 AM SEAFOOD PROCESS WORKER DTL Comment: NT-proBNP values less than 300 [...] failure. Blood (Blood, Venous) 06/25/2023 10:04 AM SEAFOOD PROCESS WORKER 06/25/2023 10:47 AM SEAFOOD PROCESS WORKER Melody Jolly M.D. LAB BLOOD ADD-ON Performing Organization Address City/[facility]/ZIP Co de Phone Number [facility] [address] [facility] 200 [place] [address] * (ABNORMAL) Prothrombin Time (PT) (06/25/2023 10:04 AM SEAFOOD PROCESS WORKER) Pathologist [facility] Prothrombin Time, P 19.3(H) 9.4 - 12.5 sec 06/25/2023 11:34 AM SEAFOOD PROCESS WORKER DTL INR 1.7 0.9 - 1.1 06/25/2023 11:34 AM SEAFOOD PROCESS WORKER DTL Comment: ----ADDITIONAL INFORMATION---- Standard intensity warfarin therapeutic range: 2.0 to 3.0 ?? High intensity warfarin therapeutic range: 2.5 to 3.5 Blood (Blood, Venous) 06/25/2023 10:04 AM SEAFOOD PROCESS WORKER 06/25/2023 11:08 AM SEAFOOD PROCESS WORKER Melody Jolly M.D. LAB BLOOD ADD-ON [facility] 200 [place] [address], [facility] 200 [place] [address] * (ABNORMAL) CBC with Differential, Blood (06/25/2023 10:04 AM SEAFOOD PROCESS WORKER) Pathologist [facility] Hemoglobin 13.4 11.6 - 15.0 g/dL 06/25/2023 11:24 AM SEAFOOD PROCESS WORKER DTL Hematocrit 41.5 35.5 - 44.9 % 06/25/2023 11:24 AM SEAFOOD PROCESS WORKER DTL Erythrocytes 4.23 3.92 - 5.13 x10(12)/L 06/25/2023 11:24 AM SEAFOOD PROCESS WORKER DTL MCV 98.1(H) 78.2 - 97.9 fL 06/25/2023 11:24 AM SEAFOOD PROCESS WORKER DTL RBC Distrib Width 13.0 12.2 - 16.1 % 06/25/2023 11:24 AM SEAFOOD PROCESS WORKER DTL Platelet Count 280 157 - 371 x10(9)/L 06/25/2023 11:24 AM SEAFOOD PROCESS WORKER DTL Leukocytes 11.5(H) 3.4 - 9.6 x10(9)/L 06/25/2023 11:24 AM SEAFOOD PROCESS WORKER DTL Neutrophils 8.93(H) 1.56 - 6.45 x10(9)/L 06/25/2023 11:24 AM SEAFOOD PROCESS WORKER DHPM Lymphocytes 1.63 0.95 - 3.07 x10(9)/L 06/25/2023 11:24 AM SEAFOOD PROCESS WORKER DTL Monocytes 0.65 0.26 - 0.81 x10(9)/L 06/25/2023 11:24 AM SEAFOOD PROCESS WORKER DTL Eosinophils 0.19 0.03 - 0.48 x10(9)/L 06/25/2023 11:24 AM SEAFOOD PROCESS WORKER DTL Basophils 0.06 0.01 - 0.08 x10(9)/L 06/25/2023 11:24 AM SEAFOOD PROCESS WORKER DTL Blood (Blood, Venous) 06/25/2023 10:04 AM SEAFOOD PROCESS WORKER 06/25/2023 11:08 AM SEAFOOD PROCESS WORKER Melody Jolly M.D. LAB BLOOD ADD-ON Performing Organization Address City/[facility]/ZIP Co de Phone Number [facility] [address] [facility] [address] 200 [place] [address] * Sodium (06/25/2023 10:04 AM SEAFOOD PROCESS WORKER) Sodium, S 142 135 - 145 mmol/L 06/25/2023 11:50 AM SEAFOOD PROCESS WORKER DTL Blood (Blood, Venous) 06/25/2023 10:04 AM SEAFOOD PROCESS WORKER 06/25/2023 10:47 AM SEAFOOD PROCESS WORKER Melody Jolly M.D. LAB BLOOD ADD-ON [facility] [address] [place] [address] * (ABNORMAL) Potassium (06/25/2023 10:04 AM SEAFOOD PROCESS WORKER) Potassium, S 5.3(H) 3.6 - 5.2 mmol/L 06/25/2023 11:50 AM SEAFOOD PROCESS WORKER DTL Blood (Blood, Venous) 06/25/2023 10:04 AM SEAFOOD PROCESS WORKER 06/25/2023 10:47 AM SEAFOOD PROCESS WORKER Narrative Authorizing Provider Result Luci Jolly M.D. LAB BLOOD ADD-ON Performing Organization Address City/[facility]/ZIP Co de Phone Number [facility] 200 [place] [address], [facility] 200 [place] [address] * (ABNORMAL) Glucose, Fasting (06/25/2023 10:04 AM SEAFOOD PROCESS WORKER) Glucose, P 116(H) 70 - 100 mg/dL 06/25/2023 11:32 AM SEAFOOD PROCESS WORKER DTL Last Intake 14 hr 06/25/2023 10:45 AM SEAFOOD PROCESS WORKER DTL Blood (Blood, Venous) 06/25/2023 10:04 AM SEAFOOD PROCESS WORKER 06/25/2023 10:45 AM SEAFOOD PROCESS WORKER Narrative Authorizing Provider Result Luci Jolly M.D. LAB BLOOD NON ADD-ON Performing Organization Address [facility] Co de Phone Number [facility] 200 [place] [address], [facility] 200 [place] [address] * (ABNORMAL) Creatinine with Estimated GFR (06/25/2023 10:04 AM SEAFOOD PROCESS WORKER) Creatinine 1.02 0.59 - 1.04 mg/dL 06/25/2023 11:50 AM SEAFOOD PROCESS WORKER DTL Estimated GFR (eGFR) 56(L) >=60 mL/min/BSA 06/25/2023 11:50 AM SEAFOOD PROCESS WORKER DTL Comment: Estimated GFR calculated using the 2020 CKD_EPI creatinine equation. Blood (Blood, Venous) 06/25/2023 10:04 AM SEAFOOD PROCESS WORKER 06/25/2023 10:47 AM SEAFOOD PROCESS WORKER Narrative Authorizing Provider Result Luci Jolly M.D. LAB BLOOD ADD-ON [facility] [address] [place] [address], [facility] [address] [place] [address] * Albumin (06/25/2023 10:04 AM SEAFOOD PROCESS WORKER) Albumin, S 4.0 3.5 - 5.0 g/dL 06/25/2023 11:50 AM SEAFOOD PROCESS WORKER DTL Blood (Blood, Venous) 06/25/2023 10:04 AM SEAFOOD PROCESS WORKER 06/25/2023 10:47 AM SEAFOOD PROCESS WORKER Melody Jolly M.D. LAB BLOOD ADD-ON [facility] [address] [place] [address], [facility] [address] [place] [address] from Last 3 Months
--- OUTSIDE RECORDS SUMMARY | 2023-06-27 11:02 | XMS_ITS | Encounter Summary ---
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 200 [place] [address] [facility] Referral ID Status Reason Start Date Expiration Date Visits Re quested Visits Authorized [id number] Closed 04/16/2023 04/15/2024 1 1 Encounter Details Date Type Department Care Team (Latest Contact Info) Description 06/25/2023 10:33 AM BRAKE SPECIALIST - 06/25/2023 11:52 AM BRAKE SPECIALIST Hospital Encounter Department of Radiology, [facility], in [place], [place] [address] [place] [phone] Melody Jolly M.D. [address] [place] [address] Regurgitation Aortic Congenital (HCC); Replacement Heart Valve Tissue Discharge Disposition: Home or Self Care Social History Tobacco Use Types Packs/Day Years Used Date Smoking Tobacco: Never Smokeless Tobacco: Never Alcohol Use Standard Drinks/Week Comments Yes 4 (1 standard drink = 0.6 oz pur e alcohol) [facility] Utilities Answer Date Recorded In the past 12 months has th e [employer], gas, oil, or water [employer] threatened to shut off services in your [...] your living situation today? 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 Sternotomy. Abandoned epicardial pacing wires. Enlarged cardiac silhouette. Degenerative changes of the spine. Chest otherwise negative. Narrative 06/25/2023 11:33 AM BRAKE SPECIALIST EXAM: ??DX CHEST AP OR PA AND LATERAL 2 VIEWS Procedure Note Carlos Colón M.D. - 06/25/2023 EXAM: DX CHEST AP OR PA AND LATERAL 2 VIEWS IMPRESSION: No significant change since 02/16/2021. Sternotomy. Abandoned epicardialpacing wires. Enlarged cardiac silhouette. Degenerative changes of thespine. Chest otherwise negative. Melody FELICIANO DIAGNOSTIC IMAGI NG PROCEDURES documented in this encounter Visit Diagnoses Diagnosis Regurgitation 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 documented in this encounter
== END 2023-06-27 11:00 | disposition home or self-care (01) ==
PROVIDERS: PCP Internal Medicine; Visit Provider Internal Medicine
DX: R05.1 Acute cough (principal)
CPT/HCPCS: 87040

== ENCOUNTER 2023-07-31 08:43 | Outpatient (CLI) | payer MEDICARE, BC, SELFPAY | END 2023-07-31 08:44 | disposition home or self-care (01) | LOC: NFLDREF 08:43 | PROVIDERS: PCP Internal Medicine; Visit Provider Internal Medicine | DX: E78.5 Hyperlipidemia, unspecified (principal) | CPT/HCPCS: 80061 ==

== ENCOUNTER 2023-08-31 10:06 | Outpatient (CLI) | payer MEDICARE, BC, SELFPAY ==
--- OUTSIDE RECORDS SUMMARY | 2023-08-31 10:10 | XMS_ITS | Referral Summary ---
Author Name Unknown Organization [facility] Address [address] [place] [address] Care Team Providers Care Business Continuity Management Director Name Role Phone Unavailable Primary Care Provider Unavailabl e Source Comments Patient records contain information from all sites at [facility]. For routine questions regarding patient records, call [phone] during business hours, M-F 8:00 AM - 5:00 PM Central Time. Record requests for emergency care only can be directed to [phone] at any time.[facility] Encounters Date Type Department Care Team Description 08/02/2023 Refill Department of Cardiovascular Medicine in [place], [place] [address] [place] [address] Vanessa Puckett R.N. Med Refill 06/25/2023 10:33 AM PERMIT SPECIALIST - 06/25/2023 11:52 AM PERMIT SPECIALIST Hospital Encounter Department of Radiology, [facility] in [place], [place] [address] [place] [address] Melody Jolly M.D. Regurgitation Aortic Congenital (HCC); Replacement Heart Valve Tissue Discharge Disposition: Home or Self Care 06/25/2023 9:36 AM PERMIT SPECIALIST - 06/25/2023 10:32 AM PERMIT SPECIALIST Hospital Encounter Department of Laboratory Medicine and Pathology, [facility] in [place], [place] [address] [place] [address] Melody Jolly M.D. Regurgitation Aortic Congenital (HCC); Replacement Heart Valve Tissue Discharge Disposition: Home or Self Care 06/25/2023 11:53 AM PERMIT SPECIALIST - 06/25/2023 11:59 PM PERMIT SPECIALIST Hospital Encounter Department of Cardiovascular Diseases in [place], [place] [address] [place] [phone] Melody Jolly M.D. Regurgitation Aortic Congenital (HCC); Replacement Heart Valve Tissue Discharge Disposition: Home or Self Care 06/25/2023 4:00 PM PERMIT SPECIALIST Office Visit Department of Cardiovascular Medicine in [place], [place] [address] [place] [phone] Melody Jolly M.D. Regurgitation Aortic Congenital (HCC) (Primary Dx); Replacement Heart Valve Tissue; Hypertension Essential Primary; Leukocytosis; Hyperglycemia 06/22/2023 8:15 AM PERMIT SPECIALIST Clinical Communication Virtual Review in [place], [place] 200 [place] [address] Pre-visit Intake from Last 3 Months Allergies Active Allergy Reactions Criticality Noted Date Comments Animal Dander Other (see comments) 03/01/2017 Horses and guinea pig - sneezing and watery eyes Penicillins Rash Low 12/11/2015 Other reaction(s): Rash,abd pain Medications Medication Sig Dispensed Refills Start Date End Date Status apixaban (Eliquis) 5 mg tablet 2 (two) times a day. 10/18/2015 Act jerry atorvastatin (LIPITOR) 40 mg tablet atorvastatin 40 mg tablet 07/16/2020 Active cetirizine (ZyrTEC) 10 mg tablet Take 1 tablet by mouth. Active fluticasone propionate (FLONASE) 50 mcg/actuation nasal spray Administer 2 sprays into nostril(s). 03/11/2018 Active losartan (COZAAR) 50 mg tablet losartan 50 mg tablet 07/12/2020 Active amLODIPine (NORVASC) 2.5 mg tablet amlodipine 2.5 mg tablet 10/20/2015 Active atenoloL (TENORMIN) 25 mg tablet atenolol 25 mg tablet 10/17/2015 Active multivit with minerals/lutein (MULTIVITAMIN 50 PLUS ORAL) Take 1 tablet by mouth. Active rosuvastatin (CRESTOR) 20 mg tablet Take 1 tablet by mouth daily. 05/01/2023 Active doxycycline monohydrate (ADOXA) 100 mg tablet Take 1 tablet (100 mg total) by mouth as directed. Take 1 tablet 30-60 minutes prior to dental appointments. 3 tablet 3 08/02/2023 Active Social History Tobacco Use Types Packs/Day Years Used Date Smoking Tobacco: Never Smokeless Tobacco: Never Tobacco Cessation:Counseling Given: Not Answered Alcohol Use Standard Drinks/Week Comments Yes 4 (1 standard drink = 0.6 oz pur e alcohol) [facility] Utilities Answer Date Recorded In [...] your living situation today? I [facility] a [facility] to live 06/18/2023 Sex and Gender Information Value Date Recorded Sex Assigned at Female 06/18/2023 10:49 AM PERMIT SPECIALIST Gender Identity Female 06/18/2023 10:49 AM PERMIT SPECIALIST Sexual Orientation Straight 06/18/2023 10 :49 AM PERMIT SPECIALIST Last Filed Vital Signs Vital Sign Reading Time Taken Comments Blood Pressure 123/57 06/25/2023 3:56 PM PERMIT SPECIALIST Pulse 72 06/25/2023 3:56 PM PERMIT SPECIALIST Temperature - - Respiratory Rate 17 08/24/2021 10:25 AM CDT Oxygen Saturation 95% 08/24/2021 10:29 AM CDT Inhaled Oxygen Concentration - - Weight - - Height - - Body Mass Index - - Plan of Treatment Not on file Procedures Procedure Name Priority Date/Time Associated Diagnosis Comments (TTE) 2D ECHO DOPPLER COLOR Routine 06/25/2023 1:59 PM PERMIT SPECIALIST Regurgitation 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 DX CHEST AP OR PA AND LATERAL 2 VIEWS RAD - Routine (most inpatients and all outpatients) 06/25/2023 10:46 AM PERMIT SPECIALIST Regurgitation 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 ECG Routine 06/25/2023 10:23 AM PERMIT SPECIALIST Regurgitation 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 NT-PRO B-TYPE NATRIURETIC PEPTIDE (BNP), S Routine 06/25/2023 10:04 AM PERMIT SPECIALIST Regurgitation 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 LIPID PANEL, S Routine 06/25/2023 10:04 AM PERMIT SPECIALIST Regurgitation 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 CBC WITH DIFFERENTIAL, B Routine 06/25/2023 10:04 AM PERMIT SPECIALIST Regurgitation 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 PROTHROMBIN TIME (PT), P Routine 06/25/2023 10:04 AM PERMIT SPECIALIST Regurgitation 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 SODIUM, S/P Routine 06/25/2023 10:04 AM PERMIT SPECIALIST Regurgitation 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 POTASSIUM, S/P Routine 06/25/2023 10:04 AM PERMIT SPECIALIST Regurgitation 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 GLUCOSE, FASTING, S/P Routine 06/25/2023 10:04 AM PERMIT SPECIALIST Regurgitation 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 CREATININE WITH EGFR, S/P Routine 06/25/2023 10:04 AM PERMIT SPECIALIST Regurgitation 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 ALBUMIN, S/P Routine 06/25/2023 10:04 AM PERMIT SPECIALIST Regurgitation 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 from Last 3 Months Results * (TTE) 2D ECHO DOPPLER COLOR (06/25/2023 1:59 PM PERMIT SPECIALIST) Ejection Fraction 56 MC CV EIMS Mid-Ascending [...] Laterality Modality Echocardiography 06/25/2023 12:3 5 PM PERMIT SPECIALIST Impressions 06/25/2023 2:43 PM PERMIT SPECIALIST LEFT VENTRICLE:Mildly enlarged left ventricular chamber size. [...] ?? and pulmonary valve homograft (elsewhere, 1999). Aortic valve systolic mean Doppler gradient 4 mmHg. Moderate aortic valve regurgitation. Mildly thickened mitral valve. Mild mitral valve regurgitation. Normal pulmonary valve homograft. 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 Pulmonary valve prosthesis systolic mean Doppler gradient [...] the Order-Level Documents. Narrative 06/25/2023 2:43 PM PERMIT SPECIALIST For the complete report, see the Order-Level [...] and Lateral 2 Views (06/25/2023 10:46 AM PERMIT SPECIALIST) Anatomical Region Laterality Modality Chest, Thoracic RST LOS, Tho racic ARZ LOS, Thoracic FLA LOS N/A Digital Radiography Impressions 06/25/2023 11:33 AM PERMIT SPECIALIST No significant change since 02/16/2021. Sternotomy. Abandoned epicardial pacing wires. Enlarged cardiac silhouette. Degenerative changes of the spine. Chest otherwise negative. Narrative 06/25/2023 11:33 AM PERMIT SPECIALIST EXAM: ??DX CHEST AP OR PA AND LATERAL 2 VIEWS Procedure Note Carlos Colón M.D. - 06/25/2023 EXAM: DX CHEST AP OR PA AND LATERAL 2 VIEWS IMPRESSION: No significant change since 02/16/2021. Sternotomy. Abandoned epicardialpacing wires. Enlarged cardiac silhouette. Degenerative changes of thespine. Chest otherwise negative. Melody Jolly M.D. IMG DIAGNOSTIC IMAGI NG PROCEDURES * ECG 12 Lead (06/25/2023 10:23 AM PERMIT SPECIALIST) Ventricular Rate ECG/Min 69 BPM MUSE NV Interval 194 ms MUSE QRSD Interval 128 ms MUSE QT Interval 450 ms MUSE QTC Interval 482 ms MUSE P [place] 79 degrees MUSE R [place] 17 degrees MUSE T Wave [place] 97 degrees MUSE 06/25/2023 10:2 3 AM PERMIT SPECIALIST 06/25/2023 10:27 AM PERMIT SPECIALIST Impressions MUSE - 06/25/2023 10:27 AM PERMIT SPECIALIST Sinus rhythm with sinus arrhythmia Left bundle [...] * (ABNORMAL) Lipid Panel (06/25/2023 10:04 AM PERMIT SPECIALIST) Triglycerides 109 mg/dL 06/25/2023 11:50 AM PERMIT SPECIALIST DTL Comment: ----REFERENCE VALUE---- Normal: <150 mg/dL Borderline High: 150-199 mg/dL High: 200-499 mg/dL Very High: > or =500 mg/dL Cholesterol, Total 133 mg/dL 2023 11:50 AM PERMIT SPECIALIST DTL Comment: ----REFERENCE VALUE---- Desirable: < 200 mg/dL Borderline High: 200 - 239 mg/dL High: > or = 240 mg/dL Cholesterol, LDL, Calculated 64 mg/dL 06/25/2023 11:50 AM PERMIT SPECIALIST DTL Comment: ----REFERENCE VALUE---- Desirable: <100 mg/dL Above Desirable: 100-129 mg/dL Borderline High: 130-159 mg/dL High: 160-189 mg/dL Very High: >=190 mg/dL ----ADDITIONAL INFORMATION---- LDL cholesterol calculated using the Copeland/NIH equation. Cholesterol, HDL, S 49(L) >=50 mg/dL 06/25/2023 11:50 AM PERMIT SPECIALIST DTL Cholesterol, Non-HDL, Calculated 84 mg/dL 06/25/2023 11:50 AM PERMIT SPECIALIST DTL Comment: ----REFERENCE VALUE---- Desirable: <130 mg/dL Above Desirable: 130-159 mg/dL Borderline High: 160-189 mg/dL High: 190-219 mg/dL Very High: > or =220 mg/dL Fasting (8 HR or more) Yes 06/25/2023 10:47 AM PERMIT SPECIALIST DTL Blood (Blood, Venous) 06/25/2023 10:04 AM PERMIT SPECIALIST 06/25/2023 10:47 AM PERMIT SPECIALIST Melody Jolly M.D. LAB BLOOD ADD-ON [place] [address] [facility] [address] [place] [address] * NT-Pro B-Type Natriuretic Peptide (BNP) (06/25/2023 10:04 AM PERMIT SPECIALIST) NT-Pro BNP 401 <=540 pg/mL 06/25/2023 11:50 AM PERMIT SPECIALIST DTL Comment: NT-proBNP values less than 300 [...] failure. Blood (Blood, Venous) 06/25/2023 10:04 AM PERMIT SPECIALIST 06/25/2023 10:47 AM PERMIT SPECIALIST Melody Jolly M.D. LAB BLOOD ADD-ON [facility] [address] [place] [address], [facility] [address] [place] [address] * (ABNORMAL) Prothrombin Time (PT) (06/25/2023 10:04 AM PERMIT SPECIALIST) Pathologist [facility] Prothrombin Time, P 19.3(H) 9.4 - 12.5 sec 06/25/2023 11:34 AM PERMIT SPECIALIST DTL INR 1.7 0.9 - 1.1 06/25/2023 11:34 AM PERMIT SPECIALIST DTL Comment: ----ADDITIONAL INFORMATION---- Standard intensity warfarin therapeutic range: 2.0 to 3.0 ?? High intensity warfarin therapeutic range: 2.5 to 3.5 Blood (Blood, Venous) 06/25/2023 10:04 AM PERMIT SPECIALIST 06/25/2023 11:08 AM PERMIT SPECIALIST Melody Jolly M.D. LAB BLOOD ADD-ON [facility] [address] [place] [address], [facility] [address] [place] [address] * (ABNORMAL) CBC with Differential, Blood (06/25/2023 10:04 AM PERMIT SPECIALIST) Pathologist [facility] Hemoglobin 13.4 11.6 - 15.0 g/dL 06/25/2023 11:24 AM PERMIT SPECIALIST DTL Hematocrit 41.5 35.5 - 44.9 % 06/25/2023 11:24 AM PERMIT SPECIALIST DTL Erythrocytes 4.23 3.92 - 5.13 x10(12)/L 06/25/2023 11:24 AM PERMIT SPECIALIST DTL MCV 98.1(H) 78.2 - 97.9 fL 06/25/2023 11:24 AM PERMIT SPECIALIST DTL RBC Distrib Width 13.0 12.2 - 16.1 % 06/25/2023 11:24 AM PERMIT SPECIALIST DTL Platelet Count 280 157 - 371 x10(9)/L 06/25/2023 11:24 AM PERMIT SPECIALIST DTL Leukocytes 11.5(H) 3.4 - 9.6 x10(9)/L 06/25/2023 11:24 AM PERMIT SPECIALIST DTL Neutrophils 8.93(H) 1.56 - 6.45 x10(9)/L 06/25/2023 11:24 AM PERMIT SPECIALIST DHPM Lymphocytes 1.63 0.95 - 3.07 x10(9)/L 06/25/2023 11:24 AM PERMIT SPECIALIST DTL Monocytes 0.65 0.26 - 0.81 x10(9)/L 06/25/2023 11:24 AM PERMIT SPECIALIST DTL Eosinophils 0.19 0.03 - 0.48 x10(9)/L 06/25/2023 11:24 AM PERMIT SPECIALIST DTL Basophils 0.06 0.01 - 0.08 x10(9)/L 06/25/2023 11:24 AM PERMIT SPECIALIST DTL Blood (Blood, Venous) 06/25/2023 10:04 AM PERMIT SPECIALIST 06/25/2023 11:08 AM PERMIT SPECIALIST Melody Jolly M.D. LAB BLOOD ADD-ON [facility] [address] [place] [address], [facility] [address] [place] [address] * Sodium (06/25/2023 10:04 AM PERMIT SPECIALIST) Sodium, S 142 135 - 145 mmol/L 06/25/2023 11:50 AM PERMIT SPECIALIST DTL Blood (Blood, Venous) 06/25/2023 10:04 AM PERMIT SPECIALIST 06/25/2023 10:47 AM PERMIT SPECIALIST Melody Jolly M.D. LAB BLOOD ADD-ON [facility] [address] [place] [address], [facility] [address] [place] [address] * (ABNORMAL) Potassium (06/25/2023 10:04 AM PERMIT SPECIALIST) Potassium, S 5.3(H) 3.6 - 5.2 mmol/L 06/25/2023 11:50 AM PERMIT SPECIALIST DTL Blood (Blood, Venous) 06/25/2023 10:04 AM PERMIT SPECIALIST 06/25/2023 10:47 AM PERMIT SPECIALIST Melody Jolly M.D. LAB BLOOD ADD-ON [facility] [address] [place], [place] [address] [place] [address] 200 [place] [address] * (ABNORMAL) Glucose, Fasting (06/25/2023 10:04 AM PERMIT SPECIALIST) Glucose, P 116(H) 70 - 100 mg/dL 06/25/2023 11:32 AM PERMIT SPECIALIST DTL Last Intake 14 hr 06/25/2023 10:45 AM PERMIT SPECIALIST DTL Blood (Blood, Venous) 06/25/2023 10:04 AM PERMIT SPECIALIST 06/25/2023 10:45 AM PERMIT SPECIALIST Melody Jolly M.D. LAB BLOOD NON ADD-ON [facility] [address] [place], [place] [id number] [place] [address] 200 [place] [address] * (ABNORMAL) Creatinine with Estimated GFR (06/25/2023 10:04 AM PERMIT SPECIALIST) Creatinine 1.02 0.59 - 1.04 mg/dL 06/25/2023 11:50 AM PERMIT SPECIALIST DTL Estimated GFR (eGFR) 56(L) >=60 mL/min/BSA 06/25/2023 11:50 AM PERMIT SPECIALIST DTL Comment: Estimated GFR calculated using the 2020 CKD_EPI creatinine equation. Blood (Blood, Venous) 06/25/2023 10:04 AM PERMIT SPECIALIST 06/25/2023 10:47 AM PERMIT SPECIALIST Melody Jolly M.D. LAB BLOOD ADD-ON [facility] [address] [place] [address], [facility] [address] [place] [address] * Albumin (06/25/2023 10:04 AM PERMIT SPECIALIST) Albumin, S 4.0 3.5 - 5.0 g/dL 06/25/2023 11:50 AM PERMIT SPECIALIST DTL Blood (Blood, Venous) 06/25/2023 10:04 AM PERMIT SPECIALIST 06/25/2023 10:47 AM PERMIT SPECIALIST Melody Jolly M.D. LAB BLOOD ADD-ON Performing Organization Address City/[facility]/ZIP Co de Phone Number [facility] [address] [place] [address], [place] [facility] [address] [place] [address] from Last 3 Months
--- OUTSIDE RECORDS SUMMARY | 2023-08-31 10:10 | XMS_ITS | Clinical Summary ---
Author Name Unknown Organization [employer] [facility] Address [place], [place] [address] Care Team Providers Care Machinist Apprentice Name Role Phone Pcp, No Primary Care Provider Unavailabl e Allergies Active Allergy Reactions Criticality Noted Date Comments Penicillins Rash Low 12/11/2015 Other reaction(s): Rash,abd pain Other reaction(s): Rash,abd pain Medications Medication Sig Dispensed Refills Start Date End Date Status amLODIPine (NORVASC) 2.5 mg tablet 08/19/2020 Active Eliquis 5 mg tablet 08/17/2020 Activ e atenoloL (TENORMIN) 25 mg tablet 08/06/2020 Active atorvastatin (LIPITOR) 40 mg tablet 10/17/2020 Active clindamycin (CLEOCIN) 300 mg capsule 08/19/2020 Active losartan (COZAAR) 50 mg tablet 10/17/2020 Active multivit with calcium,iron,min (MULTIPLE VITAMIN, WOMENS ORAL) Take 1 Tablet by mouth. Active Cetirizine HCl (ZYRTEC) 10 mg chewable tablet Chew 10 mg by mouth. Active Active Problems No known active problems [...] 2023 09/23/2021, 02/21/2021 Influenza for age 65+ 01/13/2024 Care Teams Machinist Apprentice Relationship Specialty Start Date End Date Pcp, No . PCP - General 10/12/20
--- OUTSIDE RECORDS SUMMARY | 2023-08-31 10:10 | XMS_ITS | Encounter Summary ---
Author Name Unknown Organization [facility] Address [address] [place] [address] Care Team Providers Care Child Monitor Name Role Phone Unavailable Primary Care Provider Unavailabl e Encounter Details Date Type Department Care Team (Latest Contact Info) Description 06/25/2023 9:36 AM DYE JIG OPERATOR - 06/25/2023 10:32 AM [facility] Hospital Encounter Department of [facility] [place], [place] [address] [place] [phone] Melody Jolly M.D. [address] [place] [address] Regurgitation Aortic Congenital (HCC); Replacement Heart Valve Tissue Discharge Disposition: Home or Self Care Social History Tobacco Use Types Packs/Day Years Used Date Smoking Tobacco: Never Smokeless Tobacco: Never Alcohol Use Standard Drinks/Week Comments Yes 4 (1 standard drink = 0.6 oz pur e alcohol) [facility] Utilities Answer Date Recorded In the past 12 months has [employer] oil, or water [employer] threatened to shut off services in your [...] your living situation today? I have a [facility] place to live 06/18/2023 Sex and Gender Information Value Date Recorded Sex Assigned at Female 06/18/2023 10:49 AM DYE JIG OPERATOR Gender Identity Female 06/18/2023 10:49 AM DYE JIG OPERATOR Sexual Orientation Straight 06/18/2023 10 :49 AM DYE JIG OPERATOR documented as of this encounter Medications at Time of Discharge Medication Sig Dispensed Refills Start Date End Date amLODIPine (NORVASC) 2.5 mg tablet amlodipine 2.5 mg tablet 10/20/2015 apixaban (Eliquis) 5 mg tablet 2 (two) times a day. 10/18/2015 atenoloL (TENORMIN) 25 mg tablet atenolol 25 mg tablet 10/17/2015 atorvastatin (LIPITOR) 40 mg tablet atorvastatin 40 mg tablet 07/16/2020 cetirizine (ZyrTEC) 10 mg tablet Take 1 tablet by mouth. fluticasone propionate (FLONASE) 50 mcg/actuation nasal spray Administer 2 sprays into nostril(s). 03/11/2018 losartan (COZAAR) 50 mg tablet losartan 50 mg tablet 07/12/2020 multivit with minerals/lutein (MULTIVITAMIN 50 PLUS ORAL) Take 1 tablet by mouth. rosuvastatin (CRESTOR) 20 mg tablet Take 1 tablet by mouth daily. 05/01/2023 documented as of this encounter Plan of Treatment Not on file documented as of this encounter Procedures Procedure Name Priority Date/Time Associated Diagnosis Comments LIPID PANEL, S Routine 06/25/2023 10:04 AM DYE JIG OPERATOR Regurgitation 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 NT-PRO B-TYPE NATRIURETIC PEPTIDE (BNP), S Routine 06/25/2023 10:04 AM DYE JIG OPERATOR Regurgitation 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 PROTHROMBIN TIME (PT), P Routine 06/25/2023 10:04 AM DYE JIG OPERATOR Regurgitation 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 CBC WITH DIFFERENTIAL, B Routine 06/25/2023 10:04 AM DYE JIG OPERATOR Regurgitation 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 SODIUM, S/P Routine 06/25/2023 10:04 AM DYE JIG OPERATOR Regurgitation 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 POTASSIUM, S/P Routine 06/25/2023 10:04 AM DYE JIG OPERATOR Regurgitation 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 GLUCOSE, FASTING, S/P Routine 06/25/2023 10:04 AM DYE JIG OPERATOR Regurgitation 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 CREATININE WITH EGFR, S/P Routine 06/25/2023 10:04 AM DYE JIG OPERATOR Regurgitation 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 ALBUMIN, S/P Routine 06/25/2023 10:04 AM DYE JIG OPERATOR Regurgitation 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 documented in this encounter Results * NT-Pro B-Type Natriuretic Peptide (BNP) (06/25/2023 10:04 AM DYE JIG OPERATOR) NT-Pro BNP 401 <=540 pg/mL 06/25/2023 11:50 AM DYE JIG OPERATOR DTL Comment: NT-proBNP values less than 300 [...] failure. Blood (Blood, Venous) 06/25/2023 10:04 AM DYE JIG OPERATOR 06/25/2023 10:47 AM DYE JIG OPERATOR Melody Jolly M.D. LAB BLOOD ADD-ON [facility] [address] [place] [address], [facility] [address] [place] [address] * (ABNORMAL) Lipid Panel (06/25/2023 10:04 AM DYE JIG OPERATOR) Triglycerides 109 mg/dL 06/25/2023 11:50 AM DYE JIG OPERATOR DTL Comment: ----REFERENCE VALUE---- Normal: <150 mg/dL Borderline High: 150-199 mg/dL High: 200-499 mg/dL Very High: > or =500 mg/dL Cholesterol, Total 133 mg/dL 2023 11:50 AM DYE JIG OPERATOR DTL Comment: ----REFERENCE VALUE---- Desirable: < 200 mg/dL Borderline High: 200 - 239 mg/dL High: > or = 240 mg/dL Cholesterol, LDL, Calculated 64 mg/dL 06/25/2023 11:50 AM DYE JIG OPERATOR DTL Comment: ----REFERENCE VALUE---- Desirable: <100 mg/dL Above Desirable: 100-129 mg/dL Borderline High: 130-159 mg/dL High: 160-189 mg/dL Very High: >=190 mg/dL ----ADDITIONAL INFORMATION---- LDL cholesterol calculated using the Copeland/NIH equation. Cholesterol, HDL, S 49(L) >=50 mg/dL 06/25/2023 11:50 AM DYE JIG OPERATOR DTL Cholesterol, Non-HDL, Calculated 84 mg/dL 06/25/2023 11:50 AM DYE JIG OPERATOR DTL Comment: ----REFERENCE VALUE---- Desirable: <130 mg/dL Above Desirable: 130-159 mg/dL Borderline High: 160-189 mg/dL High: 190-219 mg/dL Very High: > or =220 mg/dL Fasting (8 HR or more) Yes 06/25/2023 10:47 AM DYE JIG OPERATOR DTL Blood (Blood, Venous) 06/25/2023 10:04 AM DYE JIG OPERATOR 06/25/2023 10:47 AM DYE JIG OPERATOR Melody Jolly M.D. LAB BLOOD ADD-ON [facility] [address] [place], [place] [address] DTL [facility] [address] [place] [address] * (ABNORMAL) CBC with Differential, Blood (06/25/2023 10:04 AM DYE JIG OPERATOR) Hemoglobin 13.4 11.6 - 15.0 g/dL 06/25/2023 11:24 AM DYE JIG OPERATOR DTL Hematocrit 41.5 35.5 - 44.9 % 06/25/2023 11:24 AM DYE JIG OPERATOR DTL Erythrocytes 4.23 3.92 - 5.13 x10(12)/L 06/25/2023 11:24 AM DYE JIG OPERATOR DTL MCV 98.1(H) 78.2 - 97.9 fL 06/25/2023 11:24 AM DYE JIG OPERATOR DTL RBC Distrib Width 13.0 12.2 - 16.1 % 06/25/2023 11:24 AM DYE JIG OPERATOR DTL Platelet Count 280 157 - 371 x10(9)/L 06/25/2023 11:24 AM DYE JIG OPERATOR DTL Leukocytes 11.5(H) 3.4 - 9.6 x10(9)/L 06/25/2023 11:24 AM DYE JIG OPERATOR DTL Neutrophils 8.93(H) 1.56 - 6.45 x10(9)/L 06/25/2023 11:24 AM DYE JIG OPERATOR DHPM Lymphocytes 1.63 0.95 - 3.07 x10(9)/L 06/25/2023 11:24 AM DYE JIG OPERATOR DTL Monocytes 0.65 0.26 - 0.81 x10(9)/L 06/25/2023 11:24 AM DYE JIG OPERATOR DTL Eosinophils 0.19 0.03 - 0.48 x10(9)/L 06/25/2023 11:24 AM DYE JIG OPERATOR DTL Basophils 0.06 0.01 - 0.08 x10(9)/L 06/25/2023 11:24 AM DYE JIG OPERATOR DTL Blood (Blood, Venous) 06/25/2023 10:04 AM DYE JIG OPERATOR 06/25/2023 11:08 AM DYE JIG OPERATOR Melody Jolly M.D. LAB BLOOD ADD-ON Performing Organization Address City/[facility]/ZIP Co de Phone Number [facility] 200 [place], [place] [phone] [place] [address] DTL [facility] [address] [place], [place] [phone] [place] [address] 200 [place] [address] * (ABNORMAL) Prothrombin Time (PT) (06/25/2023 10:04 AM DYE JIG OPERATOR) Prothrombin Time, P 19.3(H) 9.4 - 12.5 sec 06/25/2023 11:34 AM DYE JIG OPERATOR DTL INR 1.7 0.9 - 1.1 06/25/2023 11:34 AM DYE JIG OPERATOR DTL Comment: ----ADDITIONAL INFORMATION---- Standard intensity warfarin therapeutic range: 2.0 to 3.0 ?? High intensity warfarin therapeutic range: 2.5 to 3.5 Blood (Blood, Venous) 06/25/2023 10:04 AM DYE JIG OPERATOR 06/25/2023 11:08 AM DYE JIG OPERATOR Melody Jolly M.D. LAB BLOOD ADD-ON [facility] [address] [place] [address], [facility] DTL [facility] [address] [place] [address] * Sodium (06/25/2023 10:04 AM DYE JIG OPERATOR) Sodium, S 142 135 - 145 mmol/L 06/25/2023 11:50 AM DYE JIG OPERATOR DTL Blood (Blood, Venous) 06/25/2023 10:04 AM DYE JIG OPERATOR 06/25/2023 10:47 AM DYE JIG OPERATOR Melody Jolly M.D. LAB BLOOD ADD-ON [facility] 200 [place] [address], [facility] 200 [place] [address] * (ABNORMAL) Potassium (06/25/2023 10:04 AM DYE JIG OPERATOR) Potassium, S 5.3(H) 3.6 - 5.2 mmol/L 06/25/2023 11:50 AM DYE JIG OPERATOR DTL Blood (Blood, Venous) 06/25/2023 10:04 AM DYE JIG OPERATOR 06/25/2023 10:47 AM DYE JIG OPERATOR Melody Jolly M.D. LAB BLOOD ADD-ON Performing Organization Address City/[facility]/ZIP Co de Phone Number [facility] 200 [place], [place] [phone] [place] [address] 200 [place] [address] * (ABNORMAL) Glucose, Fasting (06/25/2023 10:04 AM DYE JIG OPERATOR) Glucose, P 116(H) 70 - 100 mg/dL 06/25/2023 11:32 AM DYE JIG OPERATOR DTL Last Intake 14 hr 06/25/2023 10:45 AM DYE JIG OPERATOR DTL Blood (Blood, Venous) 06/25/2023 10:04 AM DYE JIG OPERATOR 06/25/2023 10:45 AM DYE JIG OPERATOR Melody Jolly M.D. LAB BLOOD NON ADD-ON [facility] [address] 200 [place] [address] * (ABNORMAL) Creatinine with Estimated GFR (06/25/2023 10:04 AM DYE JIG OPERATOR) Creatinine 1.02 0.59 - 1.04 mg/dL 06/25/2023 11:50 AM DYE JIG OPERATOR DTL Estimated GFR (eGFR) 56(L) >=60 mL/min/BSA 06/25/2023 11:50 AM DYE JIG OPERATOR DTL Comment: Estimated GFR calculated using the 2020 CKD_EPI creatinine equation. Blood (Blood, Venous) 06/25/2023 10:04 AM DYE JIG OPERATOR 06/25/2023 10:47 AM DYE JIG OPERATOR Melody Jolly M.D. LAB BLOOD ADD-ON Performing Organization Address City/[facility]/ZIP Co de Phone Number [facility] 200 [place] [address], [facility] 200 [place] [address] * Albumin (06/25/2023 10:04 AM DYE JIG OPERATOR) Albumin, S 4.0 3.5 - 5.0 g/dL 06/25/2023 11:50 AM DYE JIG OPERATOR DTL Blood (Blood, Venous) 06/25/2023 10:04 AM DYE JIG OPERATOR 06/25/2023 10:47 AM DYE JIG OPERATOR Melody Jolly M.D. LAB BLOOD ADD-ON Performing Organization Address City/[facility]/ZIP Co de Phone Number [facility] [address] [place] [address], [facility] 200 [place] [address] documented in this encounter Visit Diagnoses Diagnosis Regurgitation 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 documented in this encounter
--- OUTSIDE RECORDS SUMMARY | 2023-08-31 10:10 | XMS_ITS | Encounter Summary ---
Author Name Unknown Organization [facility] Address [address] [place] [address] Care Team Providers Care Church Secretary Name Role Phone Unavailable Primary Care Provider Unavailabl e Reason for Visit * Reason Comments Med Refill Encounter Details Date Type Department Care Team (Late st Contact Info) Description 08/02/2023 Refill Department of Cardiovascular Medicine in [place], [place] [address] [place] [address] Vanessa Puckett R.N. [address] [place] [address] Med Refill Social History Tobacco Use Types Packs/Day Years Used Date Smoking Tobacco: Never Smokeless Tobacco: Never Alcohol Use Standard Drinks/Week Comments Yes 4 (1 standard drink = 0.6 oz pur e alcohol) [facility] Utilities Answer Date Recorded In [...] your living situation today? I have a [facility] place to live 06/18/2023 Sex and Gender Information Value Date Recorded Sex Assigned at Female 06/18/2023 10:49 AM LABORER GOLD LEAF Gender Identity Female 06/18/2023 10:49 AM LABORER GOLD LEAF Sexual Orientation Straight 06/18/2023 10 :49 AM LABORER GOLD LEAF documented as of this encounter Plan of Treatment Not on file documented as of this encounter Visit Diagnoses Not on filedocumented in this encounter
--- OUTSIDE RECORDS SUMMARY | 2023-08-31 10:10 | XMS_ITS | Encounter Summary ---
Author Name Unknown Organization [facility] Address [address] [place] [address] Care Team Providers Care Glass Or Mirror Inspector Name Role Phone Unavailable Primary Care Provider Unavailabl e Reason for Visit * Reason Onset Date Comments Pre-visit Intake 06/22/2023 Encounter Details Date Type Department Care Team (Latest Contact Info) Description 06/22/2023 8:15 AM WRAPPER OPENER Clinical Communication Virtual Review in [place], [place] [address] [place] [address] Pre-visit Intake Social History Tobacco Use Types Packs/Day Years Used Date Smoking Tobacco: Never Smokeless Tobacco: Never Tobacco Cessation:Counseling Given: Not Answered [facility] Utilities Answer Date Recorded In the [...] your living situation today? I have a [facility] place to live 06/18/2023 Sex and Gender Information Value Date Recorded Sex Assigned at Female 06/18/2023 10:49 AM WRAPPER OPENER Gender Identity Female 06/18/2023 10:49 AM WRAPPER OPENER Sexual Orientation Straight 06/18/2023 10 :49 AM WRAPPER OPENER documented as of this encounter Plan of Treatment Not on file documented as of this encounter Visit Diagnoses Not on filedocumented in this encounter
--- OUTSIDE RECORDS SUMMARY | 2023-08-31 10:10 | XMS_ITS | Encounter Summary ---
Author Name Unknown Organization [facility] Address [address] [place] [address] Care Team Providers Care Shot Examiner Name Role Phone Unavailable Primary Care Provider Unavailabl e Reason for Referral * Outpatient (Routine) - Closed Specialty Diagnoses / Procedures Referred By Gerardo gonsalez Referred To Contact Diagnoses Regurgitation 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 Procedures DX Chest AP or PA and Lateral 2 Views Melody Jolly M.D. 200 [place] [address] [facility] Referral ID Status Reason Start Date Expiration Date Visits Re quested Visits Authorized [id number] Closed 04/16/2023 04/15/2024 1 1 T BUYER Reason for Visit * Outpatient (Routine) - Closed Specialty Diagnoses / Procedures Referred By Gerardo gonsalez Referred To Contact Diagnoses Regurgitation 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 Procedures DX Chest AP or PA and Lateral 2 Views Melody Jolly M.D. 200 [place] [address] [facility] Referral ID Status Reason Start Date Expiration Date Visits Re quested Visits Authorized [id number] Closed 04/16/2023 04/15/2024 1 1 Encounter Details Date Type Department Care Team (Latest Contact Info) Description 06/25/2023 10:33 AM FRUIT BUYER - 06/25/2023 11:52 AM FRUIT BUYER Hospital Encounter Department of Radiology, [facility], in [place], [place] 200 [place] [phone] Melody Jolly M.D. [address] [place] [address] Regurgitation Aortic Congenital (HCC); Replacement Heart Valve Tissue Discharge Disposition: Home or Self Care Social History Tobacco Use Types Packs/Day Years Used Date Smoking Tobacco: Never Smokeless Tobacco: Never Alcohol Use Standard Drinks/Week Comments Yes 4 (1 standard drink = 0.6 oz pur e alcohol) [facility] Utilities Answer Date Recorded In the past 12 months has th e [employer], gas, oil, or water [employer] threatened to shut off services in your [...] your living situation today? I have a [facility] place to live 06/18/2023 Sex and Gender Information Value Date Recorded Sex Assigned at Female 06/18/2023 10:49 AM FRUIT BUYER Gender Identity Female 06/18/2023 10:49 AM FRUIT BUYER Sexual Orientation Straight 06/18/2023 10 :49 AM FRUIT BUYER documented as of this encounter Medications at [...] inpatients and all outpatients) 06/25/2023 10:46 AM FRUIT BUYER Regurgitation 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 documented in this encounter Results * DX Chest AP or PA and Lateral 2 Views (06/25/2023 10:46 AM FRUIT BUYER) Anatomical Region Laterality Modality Chest, Thoracic RST LOS, Tho racic ARZ LOS, Thoracic FLA LOS N/A Digital Radiography Impressions 06/25/2023 11:33 AM FRUIT BUYER No significant change since 02/16/2021. Sternotomy. Abandoned epicardial pacing wires. Enlarged cardiac silhouette. Degenerative changes of the spine. Chest otherwise negative. Narrative 06/25/2023 11:33 AM FRUIT BUYER EXAM: ??DX CHEST AP OR PA AND LATERAL 2 VIEWS Procedure Note Carlos Colón M.D. - 06/25/2023 EXAM: DX CHEST AP OR PA AND LATERAL 2 VIEWS IMPRESSION: No significant change since 02/16/2021. Sternotomy. Abandoned epicardialpacing wires. Enlarged cardiac silhouette. Degenerative changes of thespine. Chest otherwise negative. Melody Jolly M.D. IMG DIAGNOSTIC IMAGI NG PROCEDURES documented in this encounter Visit Diagnoses Diagnosis Regurgitation 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 documented in this encounter
--- OUTSIDE RECORDS SUMMARY | 2023-08-31 10:10 | XMS_ITS | Clinical Summary ---
Author Name Unknown Organization [facility] Address [address] [place] [address] Care Team Providers Care Mathematics Technician Name Role Phone Unavailable Primary Care Provider Unavailabl e Source Comments You are receiving this document as you are listed as the primary care provider,follow-up provider, or the patient has been referred to you for consultation.This is in compliance with the Medicare and[facility] EHR Incentive Program,which states Providers who transition their patient to another setting of careor provider of care or refers their patient to another provider of care shouldprovide summary care record for each transition of care or referral. Dovetail Allergies Active Allergy Reactions Criticality Noted Date [...] Department Care Team Description 06/11/2023 1:30 PM PERSONNEL RESEARCH SCIENTIST Office Visit [facility] [address] [place] [address] Stephanie Arriaza PA-C Left knee pain, unspecified [...] 68 kg (150 lb) 04/23/2023 12:02 PM PERSONNEL RESEARCH SCIENTIST Height 157.5 cm (5' 2) 04/23/2023 12:02 PM PERSONNEL RESEARCH SCIENTIST Body Mass Index 27.44 04/23/2023 12:02 PM PERSONNEL RESEARCH SCIENTIST Plan of Treatment Health Maintenance Due Date [...]
--- OUTSIDE RECORDS SUMMARY | 2023-08-31 10:10 | XMS_ITS | Encounter Summary ---
Author Name Unknown Organization [facility] Address [address] [place] [address] Care Team Providers Care Communications Equipment Supervisor Name Role Phone Unavailable Primary Care Provider Unavailabl e Reason for Referral * Outpatient (Routine) - Closed Specialty Diagnoses / Procedures Referred By Gerardo gonsalez Referred To Contact Diagnoses Regurgitation 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 Procedures Echo Transthoracic (TTE) - Complex Valvular Heart Disease Melody Jolly M.D. 200 [place] [address] [facility] Referral ID Status Reason Start Date Expiration Date Visits Re quested Visits Authorized [id number] Closed 04/16/2023 04/15/2024 1 1 CONDUCTOR Reason for Visit * Outpatient (Routine) - Closed Specialty Diagnoses / Procedures Referred By Gerardo gonsalez Referred To Contact Diagnoses Regurgitation 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 Procedures Echo Transthoracic (TTE) - Complex Valvular Heart Disease Melody Jolly M.D. 200 [place] [address] [facility] Referral ID Status Reason Start Date Expiration Date Visits Re quested Visits Authorized [id number] Closed 04/16/2023 04/15/2024 1 1 Encounter Details Date Type Department Care Team (Latest Contact Info) Description 06/25/2023 11:[address]DU[address] - 06/25/2023 11:[address]DUCTOR Hospital Encounter Department of Cardiovascular Diseases in [place], [place] [address] [place] [phone] Melody Jolly M.D. [address] [place] [address] Regurgitation Aortic Congenital (HCC); Replacement Heart Valve Tissue Discharge Disposition: Home or Self Care Social History Tobacco Use Types Packs/Day Years Used Date Smoking Tobacco: Never Smokeless Tobacco: Never Alcohol Use Standard Drinks/Week Comments Yes 4 (1 standard drink = 0.6 oz pur e alcohol) [facility] Utilities Answer Date Recorded In the past 12 months has th e [employer], gas, oil, or water [employer] threatened to shut off services in your [...] your living situation today? I have a [facility] place to live 06/18/2023 Sex and Gender Information Value Date Recorded Sex Assigned at Female 06/18/2023 10:[address] Gender Identity Female 06/18/2023 10:[address] Sexual Orientation Straight 06/18/2023 10 :[address]DU[address] documented as of this encounter Medications at [...] ECHO DOPPLER COLOR Routine 06/25/2023 1:[address]DU[address] Regurgitation 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 documented in this encounter Results * (TTE) 2D ECHO DOPPLER COLOR (06/25/2023 1:[address]DUCTOR) Ejection Fraction 56 MC CV EIMS [...] Laterality Modality Echocardiography 06/25/2023 12:[address] Impressions 06/25/2023 2:[address]DUCTOR LEFT VENTRICLE:Mildly enlarged left ventricular chamber [...] the Order-Level Documents. Narrative 06/25/2023 2:[address]DU[address] For the complete report, see the [...]
--- OUTSIDE RECORDS SUMMARY | 2023-08-31 10:10 | XMS_ITS ---
Author Name Unknown Organization [facility] Address [address] [place] [address] Care Team Providers Care Coke Loader Name Role Phone Unavailable Unavailable Unavailable Surgery Details Not on file Complications Check Surgery Details section. Procedure Estimated Blood Loss Check Surgery Details section. Procedure Findings Check Surgery Details section. Procedure Specimens Taken Check Surgery Details section.
--- OUTSIDE RECORDS SUMMARY | 2023-08-31 10:10 | XMS_ITS | Clinical Summary ---
Author Name Unknown Organization [facility] Address [address] [place] [address] Care Team Providers Care Shader And Toner Name Role Phone Unavailable Primary Care Provider Unavailabl e Source Comments Patient records contain information from all sites at [facility]. For routine questions regarding patient records, call [phone] during business hours, M-F 8:00 AM - 5:00 PM Central Time. Record requests for emergency care only can be directed to [phone] at any time.[facility] Allergies Active Allergy Reactions Criticality Noted [...] dental appointments. 3 tablet 3 08/02/2023 Active Encounters Date Type Department Care Team Description 08/02/2023 Refill Department of Cardiovascular Medicine in [place], [place] [address] [place] [phone] Vanessa Puckett R.N. Med Refill 06/25/2023 4:00 PM DIRECTOR SECURITY RISK MANAGEMENT Office Visit Department of Cardiovascular Medicine in [place], [place] [address] [place] [phone] Melody Jolly M.D. Regurgitation Aortic Congenital (HCC) (Primary Dx); Replacement Heart Valve Tissue; Hypertension Essential Primary; Leukocytosis; Hyperglycemia 06/25/2023 11:53 AM DIRECTOR SECURITY RISK MANAGEMENT - 06/25/2023 11:59 PM DIRECTOR SECURITY RISK MANAGEMENT Hospital Encounter Department of Cardiovascular Diseases in [place], [place] [address] [place] [phone] Melody Jolly M.D. Regurgitation Aortic Congenital (HCC); Replacement Heart Valve Tissue Discharge Disposition: Home or Self Care 06/25/2023 10:33 AM DIRECTOR SECURITY RISK MANAGEMENT - 06/25/2023 11:52 AM DIRECTOR SECURITY RISK MANAGEMENT Hospital Encounter Department of Radiology, [facility] in [place], [place] [address] [place] [phone] Melody Jolly M.D. Regurgitation Aortic Congenital (HCC); Replacement Heart Valve Tissue Discharge Disposition: Home or Self Care 06/25/2023 9:36 AM DIRECTOR SECURITY RISK MANAGEMENT - 06/25/2023 10:32 AM DIRECTOR SECURITY RISK MANAGEMENT Hospital Encounter Department of Laboratory Medicine and Pathology, [facility] in [place], [place] [address] [place] [phone] Melody Jolly M.D. Regurgitation Aortic Congenital (HCC); Replacement Heart Valve Tissue Discharge Disposition: Home or Self Care 06/22/2023 8:15 AM DIRECTOR SECURITY RISK MANAGEMENT Clinical Communication Virtual Review in [place], [place] [address] [place] [phone] Pre-visit Intake from Last 3 Months Family History Medical History Relation Name Comments Coronary artery disease Father Drake Newell s Stroke Maternal Grandmother Sandhya Saldana Breast cancer Mother Zehra Keily Hypertension Mother Zehra Keily Stroke Paternal Grandfather Lance Keily Relation Name Status Comments Father Drake Matthews Keily Maternal Grandmother Sandhya Lechugaon Mother Zehra Keily Paternal Grandfather Lance Keily Social History Tobacco Use Types Packs/Day Years Used Date Smoking Tobacco: Never Smokeless Tobacco: Never Tobacco Cessation:Counseling Given: Not Answered Alcohol Use Standard Drinks/Week Comments Yes 4 (1 standard drink = 0.6 oz pur e alcohol) [facility] Utilities Answer Date Recorded In the past 12 months has e electric, gas, oil, or water company [...] your living situation today? I have a [facility] place to live 06/18/2023 Sex and Gender Information Value Date Recorded Sex Assigned at Female 06/18/2023 10:49 AM DIRECTOR SECURITY RISK MANAGEMENT Gender Identity Female 06/18/2023 10:49 AM DIRECTOR SECURITY RISK MANAGEMENT Sexual Orientation Straight 06/18/2023 10 :49 AM DIRECTOR SECURITY RISK MANAGEMENT Last Filed Vital Signs Vital Sign Reading Time Taken Comments Blood Pressure 123/57 06/25/2023 3:56 PM DIRECTOR SECURITY RISK MANAGEMENT Pulse 72 06/25/2023 3:56 PM DIRECTOR SECURITY RISK MANAGEMENT Temperature - - Respiratory Rate 17 08/24/2021 10:25 AM CDT Oxygen Saturation 95% 08/24/2021 10:29 AM CDT Inhaled Oxygen Concentration - - Weight - - Height - - Body Mass Index - - Plan of Treatment Health Maintenance Due Date Last Done Comments Hepatitis C Screening 1945 Depression Screening (Annual PHQ-2) 05/14/2023 COVID-19 Vaccine (2022-06 4 season) 2023 02/07/2023, 09/09/2022, 02/07/2022, Additional history exists Creatinine Level (Kidney Fun ction Test) 06/25/2024 06/25/2023, 02/16/2021 Fasting Glucose for Diabetes Screening 06/25/2024 06/25/2023, 02/16/2021 Potassium Level 06/25/2024 06/25/2023, 02/16/2021 Sodium Level 06/25/2024 06/25/2023, 02/16/2021 DTaP,Tdap,and Td Vaccines (3 - Td or Tdap) 05/03/2030 05/03/2020, 05/26/2010 Pneumococcal vaccine (65+ years) Completed 05/14/19 15, 10/13/2009 Zoster Vaccines Completed 11/03/2018, 08/0 10/2017, 01/18/2011 Influenza Vaccine Completed 01/03/2023, , 01/15/2022, Additional history exists Fall Risk Screen (Annual) Completed 06/25/2023 Procedures Procedure Name Priority Date/Time Associated Diagnosis Comments (TTE) 2D ECHO DOPPLER COLOR Routine 06/25/2023 1:59 PM DIRECTOR SECURITY RISK MANAGEMENT Regurgitation 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 DX CHEST AP OR PA AND LATERAL 2 VIEWS RAD - Routine (most inpatients and all outpatients) 06/25/2023 10:46 AM DIRECTOR SECURITY RISK MANAGEMENT Regurgitation 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 ECG Routine 06/25/2023 10:23 AM DIRECTOR SECURITY RISK MANAGEMENT Regurgitation 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 NT-PRO B-TYPE NATRIURETIC PEPTIDE (BNP), S Routine 06/25/2023 10:04 AM DIRECTOR SECURITY RISK MANAGEMENT Regurgitation 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 LIPID PANEL, S Routine 06/25/2023 10:04 AM DIRECTOR SECURITY RISK MANAGEMENT Regurgitation 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 CBC WITH DIFFERENTIAL, B Routine 06/25/2023 10:04 AM DIRECTOR SECURITY RISK MANAGEMENT Regurgitation 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 PROTHROMBIN TIME (PT), P Routine 06/25/2023 10:04 AM DIRECTOR SECURITY RISK MANAGEMENT Regurgitation 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 SODIUM, S/P Routine 06/25/2023 10:04 AM DIRECTOR SECURITY RISK MANAGEMENT Regurgitation 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 POTASSIUM, S/P Routine 06/25/2023 10:04 AM DIRECTOR SECURITY RISK MANAGEMENT Regurgitation 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 GLUCOSE, FASTING, S/P Routine 06/25/2023 10:04 AM DIRECTOR SECURITY RISK MANAGEMENT Regurgitation 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 CREATININE WITH EGFR, S/P Routine 06/25/2023 10:04 AM DIRECTOR SECURITY RISK MANAGEMENT Regurgitation 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 ALBUMIN, S/P Routine 06/25/2023 10:04 AM DIRECTOR SECURITY RISK MANAGEMENT Regurgitation 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 from Last 3 Months Results * (TTE) 2D ECHO DOPPLER COLOR (06/25/2023 1:59 PM DIRECTOR SECURITY RISK MANAGEMENT) Ejection Fraction 56 MC CV EIMS Mid-Ascending [...] Laterality Modality Echocardiography 06/25/2023 12:3 5 PM DIRECTOR SECURITY RISK MANAGEMENT Impressions 06/25/2023 2:43 PM DIRECTOR SECURITY RISK MANAGEMENT LEFT VENTRICLE:Mildly enlarged left ventricular chamber size. [...] the Order-Level Documents. Narrative 06/25/2023 2:43 PM DIRECTOR SECURITY RISK MANAGEMENT For the complete report, see the Order-Level [...] and Lateral 2 Views (06/25/2023 10:46 AM DIRECTOR SECURITY RISK MANAGEMENT) Anatomical Region Laterality Modality Chest, Thoracic RST LOS, Tho racic ARZ LOS, Thoracic FLA LOS N/A Digital Radiography Impressions 06/25/2023 11:33 AM DIRECTOR SECURITY RISK MANAGEMENT No significant change since 02/16/2021. Sternotomy. Abandoned epicardial pacing wires. Enlarged cardiac silhouette. Degenerative changes of the spine. Chest otherwise negative. Narrative 06/25/2023 11:33 AM DIRECTOR SECURITY RISK MANAGEMENT EXAM: ??DX CHEST AP OR PA AND LATERAL 2 VIEWS Procedure Note Carlos Colón M.D. - 06/25/2023 EXAM: DX CHEST AP OR PA AND LATERAL 2 VIEWS IMPRESSION: No significant change since 02/16/2021. Sternotomy. Abandoned epicardialpacing wires. Enlarged cardiac silhouette. Degenerative changes of thespine. Chest otherwise negative. Melody Jolly M.D. IMG DIAGNOSTIC IMAGI NG PROCEDURES * ECG 12 Lead (06/25/2023 10:23 AM DIRECTOR SECURITY RISK MANAGEMENT) Ventricular Rate ECG/Min 69 BPM MUSE NE Interval 194 ms MUSE QRSD Interval 128 ms MUSE QT Interval 450 ms MUSE QTC Interval 482 ms MUSE P [place] 79 degrees MUSE R [place] 17 degrees MUSE T Wave [place] 97 degrees MUSE 06/25/2023 10:2 3 AM DIRECTOR SECURITY RISK MANAGEMENT 06/25/2023 10:27 AM DIRECTOR SECURITY RISK MANAGEMENT Impressions MUSE - 06/25/2023 10:27 AM DIRECTOR SECURITY RISK MANAGEMENT Sinus rhythm with sinus arrhythmia Left bundle [...] * (ABNORMAL) Lipid Panel (06/25/2023 10:04 AM DIRECTOR SECURITY RISK MANAGEMENT) Triglycerides 109 mg/dL 06/25/2023 11:50 AM DIRECTOR SECURITY RISK MANAGEMENT DTL Comment: ----REFERENCE VALUE---- Normal: <150 mg/dL Borderline High: 150-199 mg/dL High: 200-499 mg/dL Very High: > or =500 mg/dL Cholesterol, Total 133 mg/dL 2023 11:50 AM DIRECTOR SECURITY RISK MANAGEMENT DTL Comment: ----REFERENCE VALUE---- Desirable: < 200 mg/dL Borderline High: 200 - 239 mg/dL High: > or = 240 mg/dL Cholesterol, LDL, Calculated 64 mg/dL 06/25/2023 11:50 AM DIRECTOR SECURITY RISK MANAGEMENT DTL Comment: ----REFERENCE VALUE---- Desirable: <100 mg/dL Above Desirable: 100-129 mg/dL Borderline High: 130-159 mg/dL High: 160-189 mg/dL Very High: >=190 mg/dL ----ADDITIONAL INFORMATION---- LDL cholesterol calculated using the Copeland/NIH equation. Cholesterol, HDL, S 49(L) >=50 mg/dL 06/25/2023 11:50 AM DIRECTOR SECURITY RISK MANAGEMENT DTL Cholesterol, Non-HDL, Calculated 84 mg/dL 06/25/2023 11:50 AM DIRECTOR SECURITY RISK MANAGEMENT DTL Comment: ----REFERENCE VALUE---- Desirable: <130 mg/dL Above Desirable: 130-159 mg/dL Borderline High: 160-189 mg/dL High: 190-219 mg/dL Very High: > or =220 mg/dL Fasting (8 HR or more) Yes 06/25/2023 10:47 AM DIRECTOR SECURITY RISK MANAGEMENT DTL Blood (Blood, Venous) 06/25/2023 10:04 AM DIRECTOR SECURITY RISK MANAGEMENT 06/25/2023 10:47 AM DIRECTOR SECURITY RISK MANAGEMENT Melody Jolly M.D. LAB BLOOD ADD-ON Performing Organization Address [facility] Co de Phone Number [facility] [address] [place] [address], [facility] DTL [facility] [address] [place] [address] * NT-Pro B-Type Natriuretic Peptide (BNP) (06/25/2023 10:04 AM DIRECTOR SECURITY RISK MANAGEMENT) NT-Pro BNP 401 <=540 pg/mL 06/25/2023 11:50 AM DIRECTOR SECURITY RISK MANAGEMENT DTL Comment: NT-proBNP values less than 300 [...] failure. Blood (Blood, Venous) 06/25/2023 10:04 AM DIRECTOR SECURITY RISK MANAGEMENT 06/25/2023 10:47 AM DIRECTOR SECURITY RISK MANAGEMENT Melody Jolly M.D. LAB BLOOD ADD-ON Performing Organization Address [facility] de Phone Number [facility] [address] [place] [address], [facility] DTL [facility] [address] [place] [address] * (ABNORMAL) Prothrombin Time (PT) (06/25/2023 10:04 AM DIRECTOR SECURITY RISK MANAGEMENT) Prothrombin Time, P 19.3(H) 9.4 - 12.5 sec 06/25/2023 11:34 AM DIRECTOR SECURITY RISK MANAGEMENT DTL INR 1.7 0.9 - 1.1 06/25/2023 11:34 AM DIRECTOR SECURITY RISK MANAGEMENT DTL Comment: ----ADDITIONAL INFORMATION---- Standard intensity warfarin therapeutic range: 2.0 to 3.0 ?? High intensity warfarin therapeutic range: 2.5 to 3.5 Blood (Blood, Venous) 06/25/2023 10:04 AM DIRECTOR SECURITY RISK MANAGEMENT 06/25/2023 11:08 AM DIRECTOR SECURITY RISK MANAGEMENT Melody Jolly M.D. LAB BLOOD ADD-ON [facility] [address] [place] [address], [facility] [address] [place] [address] * (ABNORMAL) CBC with Differential, Blood (06/25/2023 10:04 AM DIRECTOR SECURITY RISK MANAGEMENT) Hemoglobin 13.4 11.6 - 15.0 g/dL 06/25/2023 11:24 AM DIRECTOR SECURITY RISK MANAGEMENT DTL Hematocrit 41.5 35.5 - 44.9 % 06/25/2023 11:24 AM DIRECTOR SECURITY RISK MANAGEMENT DTL Erythrocytes 4.23 3.92 - 5.13 x10(12)/L 06/25/2023 11:24 AM DIRECTOR SECURITY RISK MANAGEMENT DTL MCV 98.1(H) 78.2 - 97.9 fL 06/25/2023 11:24 AM DIRECTOR SECURITY RISK MANAGEMENT DTL RBC Distrib Width 13.0 12.2 - 16.1 % 06/25/2023 11:24 AM DIRECTOR SECURITY RISK MANAGEMENT DTL Platelet Count 280 157 - 371 x10(9)/L 06/25/2023 11:24 AM DIRECTOR SECURITY RISK MANAGEMENT DTL Leukocytes 11.5(H) 3.4 - 9.6 x10(9)/L 06/25/2023 11:24 AM DIRECTOR SECURITY RISK MANAGEMENT DTL Neutrophils 8.93(H) 1.56 - 6.45 x10(9)/L 06/25/2023 11:24 AM DIRECTOR SECURITY RISK MANAGEMENT DHPM Lymphocytes 1.63 0.95 - 3.07 x10(9)/L 06/25/2023 11:24 AM DIRECTOR SECURITY RISK MANAGEMENT DTL Monocytes 0.65 0.26 - 0.81 x10(9)/L 06/25/2023 11:24 AM DIRECTOR SECURITY RISK MANAGEMENT DTL Eosinophils 0.19 0.03 - 0.48 x10(9)/L 06/25/2023 11:24 AM DIRECTOR SECURITY RISK MANAGEMENT DTL Basophils 0.06 0.01 - 0.08 x10(9)/L 06/25/2023 11:24 AM DIRECTOR SECURITY RISK MANAGEMENT DTL Blood (Blood, Venous) 06/25/2023 10:04 AM DIRECTOR SECURITY RISK MANAGEMENT 06/25/2023 11:08 AM DIRECTOR SECURITY RISK MANAGEMENT Melody Jolly M.D. LAB BLOOD ADD-ON [facility] [address] [place] [address] * Sodium (06/25/2023 10:04 AM DIRECTOR SECURITY RISK MANAGEMENT) Sodium, S 142 135 - 145 mmol/L 06/25/2023 11:50 AM DIRECTOR SECURITY RISK MANAGEMENT DT Blood (Blood, Venous) 06/25/2023 10:04 AM DIRECTOR SECURITY RISK MANAGEMENT 06/25/2023 10:47 AM DIRECTOR SECURITY RISK MANAGEMENT Melody Jolly M.D. LAB BLOOD ADD-ON [facility] [address] [place] [address] * (ABNORMAL) Potassium (06/25/2023 10:04 AM DIRECTOR SECURITY RISK MANAGEMENT) Potassium, S 5.3(H) 3.6 - 5.2 mmol/L 06/25/2023 11:50 AM DIRECTOR SECURITY RISK MANAGEMENT DTL Blood (Blood, Venous) 06/25/2023 10:04 AM DIRECTOR SECURITY RISK MANAGEMENT 06/25/2023 10:47 AM DIRECTOR SECURITY RISK MANAGEMENT Melody Jolly M.D. LAB BLOOD ADD-ON Performing Organization Address [facility] Co de Phone Number [facility] [address] [place], [place] [id number] [place] [address] [address] [place] [address] * (ABNORMAL) Glucose, Fasting (06/25/2023 10:04 AM DIRECTOR SECURITY RISK MANAGEMENT) Glucose, P 116(H) 70 - 100 mg/dL 06/25/2023 11:32 AM DIRECTOR SECURITY RISK MANAGEMENT DTL Last Intake 14 hr 06/25/2023 10:45 AM DIRECTOR SECURITY RISK MANAGEMENT DTL Blood (Blood, Venous) 06/25/2023 10:04 AM DIRECTOR SECURITY RISK MANAGEMENT 06/25/2023 10:45 AM DIRECTOR SECURITY RISK MANAGEMENT Melody Jolly M.D. LAB BLOOD NON ADD-ON Performing Organization Address [facility] Co de Phone Number [phone] [place] [address] [place] [address] * (ABNORMAL) Creatinine with Estimated GFR (06/25/2023 10:04 AM DIRECTOR SECURITY RISK MANAGEMENT) Creatinine 1.02 0.59 - 1.04 mg/dL 06/25/2023 11:50 AM DIRECTOR SECURITY RISK MANAGEMENT DTL Estimated GFR (eGFR) 56(L) >=60 mL/min/BSA 06/25/2023 11:50 AM DIRECTOR SECURITY RISK MANAGEMENT DTL Comment: Estimated GFR calculated using the 2020 CKD_EPI creatinine equation. Blood (Blood, Venous) 06/25/2023 10:04 AM DIRECTOR SECURITY RISK MANAGEMENT 06/25/2023 10:47 AM DIRECTOR SECURITY RISK MANAGEMENT Melody Jolly M.D. LAB BLOOD ADD-ON Performing Organization Address [facility] Co de Phone Number [id number] [place] [address] * Albumin (06/25/2023 10:04 AM DIRECTOR SECURITY RISK MANAGEMENT) Albumin, S 4.0 3.5 - 5.0 g/dL 06/25/2023 11:50 AM DIRECTOR SECURITY RISK MANAGEMENT DTL Blood (Blood, Venous) 06/25/2023 10:04 AM DIRECTOR SECURITY RISK MANAGEMENT 06/25/2023 10:47 AM DIRECTOR SECURITY RISK MANAGEMENT Melody Jolly M.D. LAB BLOOD ADD-ON [facility] [address] [place] [address], [facility] [address] [place] [address] from Last 3 Months
--- OUTSIDE RECORDS SUMMARY | 2023-08-31 10:10 | XMS_ITS | Encounter Summary ---
Author Name Unknown Organization [facility] Address [address] [place] [address] Care Team Providers Care Flower Pot Press Operator Name Role Phone Unavailable Primary Care Provider Unavailabl e Reason for Visit * Reason Comments Follow-up Left Knee Encounter Details Date Type Department Care Team (Late st Contact Info) Description 06/11/2023 1:30 PM PATIENT SAFETY ATTENDANT Office Visit [facility] [address] [place] [address] Stephanie Arriaza PA-C [address] [place] [phone] Left knee pain, unspecified chronicity (Primary Dx) Social History Tobacco Use Types Packs/Day Years Used Date Smoking Tobacco: Never Smokeless Tobacco: Never Sex and Gender Information Value Date Recorded Sex Assigned at Not on file Gender Identity Not on file Sexual Orientation Not on file documented as of this encounter Patient Instructions * Patient Instructions* Jeannette Fontaine MA - 06/11/2023 1:30 PM PATIENT SAFETY ATTENDANT Thank you for Choosing [facility] for your health care visit today. Stephanie Arriaza PA-C Physician Nuclear Powerplant Mechanic Helper Certified Appts: [phone] Medication Requests: Prescriptions are not filled on [...] MRI, Ultrasound, or Image guided injection at [facility] please call [phone]. To schedule an MRI or CT at a [facility] location please call [phone]. [facility] Workers' Compensation [address] [place] [address] (Phone) Email: [email or web address] Release of Information: Radiology/Imaging [address] [place] [address] (Phone) Health Information Management [address] [place] [address] (Phone) [email or web address] ENT SAFETY ATTENDANT documented in this encounter Progress Notes * Stephanie Arriaza PA-C - 06/11/2023 12:00 AM CST NAME: MARGIE VALVERDE CSN: [id number] CLINIC NOTE DATE OF SERVICE: 06/11/2023 : [...] this was spent in counseling. ENRRIQUE CARPIO/JAK /[id number] ENT SAFETY ATTENDANT documented in this encounter Plan of Treatment Not on file documented as of this encounter Visit Diagnoses Diagnosis Left knee pain, unspecified chronicity- Primary documented in this encounter
--- OUTSIDE RECORDS SUMMARY | 2023-08-31 10:10 | XMS_ITS | Encounter Summary ---
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 [address] [place] [phone] [facility] Referral ID Status Reason Start Date Expiration Date V isits Requested Visits Authorized [id number] Authorized 06/27/2023 12/26/2024 1 1 Scheduling Instructions Routine valve testing (for Aortic regurgitation). ANICAL SERVICE SPECIALIST Reason for Visit * Appointment Request (Routine) - Closed Specialty Diagnoses / Procedures Referred By Gerardo gonsalez Referred To Contact Cardiovascular Disease Referral ID Status Reason Start Date Expiration Date Visits Re quested Visits Authorized [id number] Closed 03/14/2023 03/13/2024 1 1 Encounter Details Date Type Department Care Team (Latest Contact Info) Description 06/25/2023 4:00 PM MECHANICAL SERVICE SPECIALIST Office Visit Department of Cardiovascular Medicine in [place], [place] [address] [place] [phone] Melody Jolly M.D. [address] [place] [phone] Regurgitation Aortic Congenital (HCC) (Primary Dx); Replacement Heart Valve Tissue; Hypertension Essential Primary; Leukocytosis; Hyperglycemia Social History Tobacco Use Types Packs/Day Years Used Date Smoking Tobacco: Never Smokeless Tobacco: Never Tobacco Cessation:Counseling Given: Not Answered Alcohol Use Standard Drinks/Week Comments Yes 4 (1 standard drink = 0.6 oz pur e alcohol) [facility] Utilities Answer Date Recorded In the [...] your living situation today? I have a [facility] place to live 06/18/2023 Sex and Gender Information Value Date Recorded Sex Assigned at Female 06/18/2023 10:49 AM MECHANICAL SERVICE SPECIALIST Gender Identity Female 06/18/2023 10:49 AM MECHANICAL SERVICE SPECIALIST Sexual Orientation Straight 06/18/2023 10 :49 AM MECHANICAL SERVICE SPECIALIST documented as of this encounter Last Filed Vital Signs Vital Sign Reading Time Taken Comments Blood Pressure 123/57 06/25/2023 3:56 PM MECHANICAL SERVICE SPECIALIST Pulse 72 06/25/2023 3:56 PM MECHANICAL SERVICE SPECIALIST Temperature - - Respiratory Rate - - Oxygen Saturation - - Inhaled Oxygen Concentration - - Weight - - Height - - Body Mass Index - - documented in this encounter Progress Notes * Melody Jolly M.D. - 06/25/2023 4:00 PM CST REFERRAL SOURCE Self CHIEF COMPLAINT / REASON FOR VISIT Follow up of AR, history of ROSS HISTORY OF PRESENT ILLNESS Ms. John is a ronlad 77-year-old female who I last saw in February of 2021 who comes for routine follow-up of her history of a Ross procedure done several years ago and now being followed for aorticregurgitation. My last visit with her was in February of 2021. Echocardiogram at that time suggested moderate to moderately severe aortic regurgitation with a mildly dilated ascending aorta. We followed this up witha transesophageal echo that suggested that the aortic regurgitation was moderate as well. There hasreally no calcification and she was asymptomatic so the plan was to continue to follow her. Her pulmonary homograft was working well also. Again she comes now for routine visit. She states she feels well. Unfortunately she did have an orthopedic issue in January of 2023. She tore her left knee meniscus. She has been in physical therapy since then. Because of that she was less active than she had been. She is starting to get back up to her typical physical activity level. Prior to that episode she was exercising and feeling well. She was in [place] in May and did a lot of walking and felt well. She denies any symptoms of chest pressure chest tightness chest discomfort. No shortness of breath or lightheadedness. She has no issues with lower extremity edema. She denies orthopnea and PND. She occasionally gets some cramps atnight when she sleeps which interrupts her sleep but does not describe any other issues. Interestingly she states at the end of May she suddenly had a fever with no other clear infectious issues. She might have had an upper respiratory issue but she has had a lingering cough since then. She states it is slowly getting better. Recently in the time that I have seen her her atorvastatin was changed to rosuvastatin. She is tolerating that. She remains on Eliquis. She states that her local dentist who is new did not wish to prescribe antibiotics before dental cleaning. Thus she needs something in place to be able to get antibiotics prior to her every 6 months dental cleaning. MEDICATIONS Current Medications: amLODIPine (NORVASC) 2.5 mg tablet, amlodipine 2.5 mg tablet apixaban (Eliquis) 5 mg tablet, 2 (two) times a day. atenoloL (TENORMIN) 25 mg tablet, atenolol 25 mg tablet atorvastatin (LIPITOR) 40 mg tablet, atorvastatin 40 mg tablet cetirizine (ZyrTEC) 10 mg tablet, Take 1 tablet by mouth. fluticasone propionate (FLONASE) 50 mcg/actuation nasal spray, Administer 2 sprays into nostril(s). losartan (COZAAR) 50 mg tablet, losartan 50 mg tablet multivit with minerals/lutein (MULTIVITAMIN 50 PLUS ORAL), Take 1 tablet by mouth. rosuvastatin (CRESTOR) 20 mg tablet, Take 1 tablet by mouth daily. .meds VITALS 123/57 HR 72 PHYSICAL EXAMINATION General: She looks comfortable, breathing comfortably no acute distress Cardiovascular Exam: No JVP elevation. Carotid upstrokes are normal. Heart sounds are regular. PMI is in the normal location. There is a 2/6 systolic ejection murmur at the base of the heart with a 2/6 diastolic murmur heard along the sternal border. I do not appreciate an S3 or S4 Lungs: Clear to auscultation bilaterally no wheezes, rales, rhonchi Extremities: No pitting edema. No cyanosis or clubbing. No rashes appreciated. Pulses are intact. Radial pulses are slightly dynamic. Carotid pulses seem to be less dynamic compared to prior visit Neuro: Grossly intact. Moves upper and lower extremities equally bilaterally. No facial droop, no dysarthria. Psychiatric: Alert and Oriented to person, place, and time. Not excessively anxious or depressed. DIAGNOSTIC REVIEW EKG: ECG 12 Lead Result Date: 06/25/2023 Sinus rhythm with sinus arrhythmia Left bundle branch block with secondary ST-T abnormalities When compared with ECG of 16-FEB-2021 11:45, No significant change in data has occurred Reviewed by MIGDALIA Almaraz Chest AP or PA and Lateral 2 Views Result Date: 06/25/2023 Impression: No significant change since 02/16/2021. Sternotomy. Abandoned epicardial pacing wires. Enlarged cardiac silhouette. Degenerative changes of the spine. Chest otherwise negative. Echocardiogram: Echo Transthoracic (TTE) - Complex Valvular Heart Disease Result Date: 06/25/2023 For the complete report, see the Order-Level Documents. Hemodynamics Heart Rate: 70 BPM Blood Pressure: 122 / 61 mmHg ECG: Sinus rhythm with ectopics, Left bundle branch block Final Impressions 1. Status post Ross procedure and pulmonary valve homograft (elsewhere, 1999). Aortic valve systolic meanDoppler gradient 4 mm Hg. 2. Moderate aortic valve regurgitation. Assessment of severity was technically challenging. 3. Early diastolic flow reversals in the abdominal aorta. 4. Mildly enlarged leftventricular chamber size, calculated 2-D linear ejection fraction 56%; abnormal ventricular septal motion due to conduction. 5. Abnormal left ventricular geometry with eccentric left ventricular hypertrophy, indeterminate filling pressure. 6. Normal right ventricular chamber size, normal systolic function, estimated right ventricular systolic pressure 27 mmHg (right atrial pressure of 5 mmHg). 7.Mildly enlarged mid ascending aorta diameter of 43 [...] Side by side comparison of images performed. Labs: Normal hemoglobin. White count was elevated 11.5 with a slight left shift. INR is 1.7. Potassium slightly low at 5.3. Creatinine 1.02. Glucose 116. Total cholesterol is 133, HDL 49, LDL 64. NT proBNP is 401 ASSESSMENT : 1. Status post Ross procedure for symptomatic aortic stenosis is in the setting of a bicuspid valveper the patient 2. Aortic valve regurgitation, moderate to moderately severe (no change from 2020) 3. Dilated ascending aorta. Appears to be stable the last year at least (per the records likely longer). 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 Elevated white count with relatively recent symptoms of a fever. There has a slight left shift on this. No obvious evidence of infection 4. Normally functioning pulmonary homograft. Mean gradient 5 mm of Hg and mild regurgitation 5. History of HTN on 3 medications. 6. History of hyperlipidemia on statin 7. Paroxysmal atrial fibrillation by history. Currently on apixaban. No clinical recurrences 8. Dilated left ventricle on both echocardiography and chest x-ray. Unclear if this is longstanding 9. Mildly elevated blood sugar 10. Left bundle branch block. This is not new and is described on prior electrocardiograms. It appears that this has been present since her open heart surgery PLAN: From a cardiovascular standpoint she seems to be doing well. The aortic regurgitation by transthoracic imaging seems unchanged. Her LV is not further enlarged. She does not endorse any cardiovascular symptoms. Thus from this and I think we can repeat an echo in 1 year. I am not sure what to make of the elevated white count. She does not appear to be toxic and she tells me her symptoms are improving. Obviously with prosthetic material in her heart there is a small concerned about some more systemic infection. I have asked her to speak with her local provider and get a repeat CBC next week and certainly follow-up if she has recurrent fevers or worsening symptoms at all LENKA. I see no reason to check blood cultures at the current time but if this persists or shecontinues to feel poorly or symptoms worsen then we need to be fairly aggressive. Blood pressure appears to be under good control. Heart rate is acceptable. Thus no other medicationchanges were made. We will plan to see her in a year with the appropriate testing in valve Clinic ANICAL SERVICE SPECIALIST documented in this encounter Plan of Treatment Scheduled Referrals Name Type Priority Associated Diagnoses Order Schedule Cardiovascular Disease office visit (clinic) Outpatient Referral Routine Expect ed: 06/27/2024 (Approximate), Expires: 09/24/2024 documented as of this encounter Visit Diagnoses Diagnosis Regurgitation Aortic Congenital (HCC)- Primary Replacement Heart Valve Tissue Hypertension Essential Primary Leukocytosis Hyperglycemia documented in this encounter
--- NOTE | 2023-08-31 10:15 | MM_ITS ---
Patient: BIGG VALVERDE Facility:?[facility] Patient ID:?[id number] Site Patient ID:?[id number]. Site :?[id number] Study:?XRay-Breast Bilateral 3D w/CAD-08/31/2023 10:31:28 AM Ordering Physician:Luis Manuel Final Report: BILATERAL SCREENING MAMMOGRAM WITH COMPUTER-AIDED DETECTION AND TOMOSYNTHESIS TECHNIQUE: CC and MLO views were obtained. These mammographic images have been obtained using full-field digital technique. These mammographic images were interpreted with the benefit of computer-aided detection. Breast Tomosynthesis was used in this interpretation. COMPARISON FILM: 08/29/22, 07/21/21. FINDINGS: There are scattered areas of fibroglandular density IMPRESSION: There is no radiographic evidence for malignancy. ASSESSMENT: BI-RADS Category 1: Negative RECOMMENDATION: Routine screening mammogram in 1 year. A lay language report of this examination will be provided to the patient. Nathan Garzon M.D. Diagnostic Radiologist [email or web address] Transcribed: 12:46 [email or web address] clements/Dictated by: Nathan Garzon MD @ 08/31/2023 11:17:00 AM Signed by:?Nathan Garzon MD @08/31/2023 12:48:15 PM (Electronic Signature)
== END 2023-08-31 10:07 | disposition home or self-care (01) ==
LOC: MAMMO 10:07
PROVIDERS: PCP Internal Medicine; Visit Provider Internal Medicine
DX: Z12.31 Encounter for screening mammogram for malignant neoplasm of breast (principal)
CPT/HCPCS: 77063; 77067

== ENCOUNTER 2024-08-15 08:05 | Outpatient (CLI) | payer MEDICARE, BC, SELFPAY | END 2024-08-15 08:06 | disposition home or self-care (01) | LOC: NFLDREF 19:39 | PROVIDERS: PCP Internal Medicine; Referring Provider Internal Medicine; Visit Provider Internal Medicine | DX: I10 Essential (primary) hypertension (principal); E78.5 Hyperlipidemia, unspecified; R73.03 Prediabetes | CPT/HCPCS: 80048; 80061 ==

== ENCOUNTER 2024-12-12 08:29 | Outpatient (CLI) | payer MEDICARE, BC, SELFPAY ==
--- NOTE | 2024-12-12 08:45 | CRLHL7_ITS ---
For Patients: As a result of the Century Cures Act, medical imaging exams and procedure reports are released immediately into your electronic medical record. You may view this report before your referring provider. If you have questions, please contact your health care provider. INDICATION: BILATERALSCREENING MAMMOGRAM, ASYMPTOMATIC 79 Y/O FEMALE COMPARISON: 08/31/2023, 08/29/2022, 07/21/2021 TECHNIQUE: Digital mammogram in CC and MLO projections including computer-aided detection (CAD) and tomosynthesis. BREAST COMPOSITION: There are scattered areas of fibroglandular density. FINDINGS: No suspicious findings. ASSESSMENT: BI-RADS 1 Negative RECOMMENDATION: Annual screening mammogram. A lay language report of this examination will be provided to the patient. Dictated by: Nathan Garzon MD @ 12/15/2024 10:04:14 (Electronically Signed)
== END 2024-12-12 08:30 | disposition home or self-care (01) ==
LOC: MAMMO 08:30
PROVIDERS: PCP Internal Medicine; Visit Provider Internal Medicine
DX: Z12.31 Encounter for screening mammogram for malignant neoplasm of breast (principal)
CPT/HCPCS: 77063; 77067